=== PATIENT | male | born 1940 | race Caucasian/White ===

== ENCOUNTER 2017-01-11 12:04 | Inpatient (IN) ==
--- NOTE | 2017-01-11 13:19 | Emergency Department Note ---
Kerry Canchola Hilary, am scribing for, and in the presence of, Mic Cordon MD 13: 03. Neris Canchola James D, MD, personally performed the services described in this documentation, ascribed by Yanique Payne in my presence, and it is both accurate and complete 317 . Arrival - Arrival Chief Complaint: GI Bleed/Rectal Stated Complaint: sent from [facility] to get blood ED Nursing Triage Note: went to [facility] and had labwork drawn told to come back to er for blood transfusion. pt denies any obvious bleeding. color is pale. has had ulcers in the past. Mode of Arrival: Ambulatory Limitations: No Limitations Source: Patient, RN Notes Reviewed - History of Present Illness HPI Narrative: Pt is a 76 y/o male presenting to the ED for an evaluation. He went into [facility] to get blood work done and they determined he was Anemic. Pt confirms light headedness, SOB but denies chest pain, melena or blood in his stool. He also confirms smoking 6-7 cigarettes a day. No other complaints or problems stated in the ED. Onset (ago): minute(s) Consistency: constant Severity: mild Severity scale (1-10): 1 Allergies/Adverse Reactions: Allergies Allergy/AdvReac Type Severity Reaction Status Date / Time Cortisone AdvReac Unknown/Unable Verified 11/22/15 14:27 to obtain Home Medications: Home Medications Medication Instructions Recorded Confirmed Type Folic Acid Tab 0.4 mg PO DAILY tablet 08/27/15 01/11/17 Rx Clopidogrel [Plavix] 75 mg PO DAILY #30 tablet 09/13/15 01/11/17 Rx Atorvastatin [Lipitor] 40 mg PO DAILY tablet 11/26/15 01/11/17 Rx Furosemide Tab [Lasix Tab] 40 mg PO DAILY tablet 12/04/15 01/11/17 Rx Metoprolol Succinate Xl [Toprol Xl] 25 mg PO DAILY tablet 12/04/15 01/11/17 Rx Spironolactone [Aldactone] 25 mg PO DAILY tablet 12/04/15 01/11/17 Rx Amiodarone HCl 100 mg PO DAILY 01/11/17 01/11/17 History Niacin 100 mg PO DAILY 01/11/17 01/11/17 History Pantoprazole Tab [Protonix Tab] 40 mg PO DAILY 01/11/17 01/11/17 History Review of System - Review of System 12 point system: reviewed and no additional remarkable complaints except as stated - Review of System Constitutional: Present: other (light headedness). Absent: fever Respiratory: Present: respiratory distress (SOB) Cardiovascular: Absent: chest pain Gastrointestinal: Absent: melena, hematochezia Medical,Surgical,& Family Hx - Medical History Cardio: History of: Cardiac Dysrhythmia (A-Fib, HX of SVT, V-Fib), CHF, Hypertension, Valvular Heart Disease (past rheumatic fever), Cardiovascular Problems (CABG 2014) No history of: Congenital Heart Disease, [place], Pacemaker Psychological: History of: Psychiatric/Substance Abuse Tx (alcohol abuse) Neurology: No history of: Seizures HEENT: History of: Ear Problem (hard of hearing both), Eye Problem (can see colors and shapes), Dental Problems (no teeth) Endocrine: History of: Dyslipidemia No history of: Diabetes Mellitus (IDDM), Thyroid Disorder Rheumatology: No history of;: Psoriasis, Sjogrens, Systemic Lupus Erythematosus Respiratory: History of: COPD, Pneumonia Gastrointestinal: History of: Hemorrhoids, Polyps, GI Problems (bleeding stomach ulcers in ) Musculoskeletal: History of: Amputation (Yes; middle finger of right hand 1974) , Back/Neck Problems, Musculoskeletal Problems (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/23/15, amputated right middle finger 1974) Hematology: History of: Clotting Problems (ZARELTO FOR AFIB) No history of: Blood Transfusion Reaction Comment Only: Bleeding Problems (Stomach ulcer ()) Other: History of: MRSA No history of: Anesthesia Reactions, Anaphylaxis, Cancer, Eczema, HIV, Malignant Hyperthermia, Vancomycin-Resistant Enterococci, Skin Problems, Miscellaneous Medical Problems - Surgical History Cardiac Surgeries: Sugical HX of: Cardiac Surgery (CABG 2014) Patient Denies: Femoral-Popliteal Bypass Graft, Cardiac Catheterization, Carotid Endarterectomy, Internal Defibrillator, Vascular Access Devices Thoracic Surgeries: Patient denies;: Organ Transplant, Lobectomy Neurologic Surgeries: Patient denies: Neurologic Surgery HEENT Surgeries: Patient denies: Carotid Endarterectomy, Eye Surgery, Tonsilectomy & Adenoidectomy Abdominal Surgeries: Surgical HX of: Colonoscopy Patient denies: Abdominal Surgery, Splenectomy Reproductive Surgeries: Patient denies;: Genitourinary Surgery Orthopedic Surgeries: Surgical HX of;: Total Hip Replacement (recent admission) Patient denies;: Implanted Devices, Orthopedic Surgery, Spinal Surgery, Total Knee Replacement - Family History Family History: Reports;: Family Cancer (father lung), Family Hypertension ( BROTHER), Family Stroke (FATHER) Denies;: Family Diabetes, Family Psychiatric Problems Comment Only: Family Heart Disease (father cabg) - Social History Smoking Status: Current every day smoker Exam Physical Examination: GENERAL: Chronically ill appearing, pale male. Nicotine staining of his right 1st and 4th digit. This is a well-nourished, well-developed in no apparent distress. VITAL SIGNS: Temperature: 98.3 Pulse: 89L Respiratory: 18 Blood Pressure: 124 /61 O2 Sat: 99 HEENT: Head is normocephalic and atraumatic. Pupils are equally round and reactive to light. Extraocular movement are intact. Oropharynx is benign with moist mucous membranes. NECK: Neck is soft and supple without tenderness. There are no masses. There is no lymphadenopathy. LUNGS: Lungs are clear to auscultation bilaterally. Chest rises symmetrically. There is no chest wall tenderness. CV: Heart is regular rate and rhythm without murmurs, rubs, or gallops. ABDOMEN: Abdomen is soft, non-tender to palpation. There are no abnormal masses palpated. There is no organomegaly. Bowel sounds are present and active. SKIN: Skin is warm and dry. No rash. EXTREMITIES: Patient has full range of motion without tenderness. There is no pedal edema. NEUROLOGIC: Awake, alert, and oriented x4. Cranial nerves II through XII are grossly intact. There are no motorsensory deficits. PSYCHIATRIC: Normal affect. Normal mood. Vital Signs: Vital Signs Temperature 98.3 F 01/11/17 12:06 Pulse Rate 89 01/11/17 12:06 Respiratory Rate 18 01/11/17 12:06 Blood Pressure 124/61 01/11/17 12:06 O2 Sat by Pulse Oximetry 99 01/11/17 12:06 Course - Consultations Consultation #1: Discussed with Hospitalist patient will be admitted to their service. Time: 13:04 Disposition Clinical Impression: Anemia, Coronary artery disease, Nicotine addiction Case discussed with: patient Disposition: Still a Patient Condition: Stable
[2017-01-11 14:25] LABS: Basophils % 0.1 % (0.0-0.8); Eosinophils # 0.2 10*3/uL (0.0-0.87); Eosinophils % 2.3 % (0.00-10.9); Hematocrit 21.1 VOL% (42.0-52.0); Immature Granulocytes % 0.4 %; Immature Granulocytes Absolute 0.04 #; Lymphocytes # 1.6 10*3/uL (1.4-4.0); Lymphocytes % 17.4 % (21.2-54.2); Mean Corpuscular HGB Conc 29.4 GM/DL (32-36); Mean Corpuscular Hemoglobin 18 PG (27-34); Mean Corpuscular Volume 61.3 FL (87-102); Mean Platelet Volume 11.3 FL (9.6-12.0); Monocytes # 0.6 10*3/uL (0.11-0.8); Monocytes % 7.1 % (1.7-12.7); Neutrophils # 6.6 10*3/uL (1.4-7.4); Neutrophils % 72.7 % (38.7-73.9); Platelet Count 208 T/CUMM (130-400); Red Blood Count 3.44 MC/CUMM (3.8-5.5); Red Cell Distribution Width 19.8 % (9.3-17.3); White Blood Count 9.1 T/CUMM (4-12)
[2017-01-11 14:28] LABS: Hemoglobin 6.2 GM/DL (14.0-18.0)
[2017-01-11 14:48] LABS: Albumin 3.6 G/DL (3.4-5.0); Bilirubin,Total 0.4 MG/DL (0.2-1.0); Calcium 8.7 MG/DL (8.5-10.1); Potassium 3.7 MMOL/L (3.5-5.1); Total Protein 6.8 G/DL (6.4-8.3)
[2017-01-11 14:51] LABS: % Iron Saturation 2.4 % (18-50); Ferritin 4.8 ng/ml (26-388)
[2017-01-11] MEDS ORDERED: ONDANSETRON 4 MG/2 ML VIAL IV PRN (15:54)
[2017-01-11] MEDS ORDERED: NICOTINE 21 MG/24 HR PATCH TRANSDERM PRN (15:54)
[2017-01-11] MEDS ORDERED: SODIUM CHLORIDE 0.9% 250 ML IV PRN ×2 (15:55→17:25)
--- NOTE | 2017-01-11 16:02 | Hospitalist History & Physical ---
Assessment and Plan (1) Anemia Status: Acute Assessment and plan: Patient will be admitted to the MedSurg unit. Patient's H&H is 6.2 and 21.1. Patient will be transfused. Check H&H post transfusion and in am. Consult GI. Current Visit: Yes (2) Coronary artery disease Status: Acute Current Visit: Yes (3) CHF (congestive heart failure) Status: Acute Assessment and plan: Obtain BNP. Use cautious in hydrating. Current Visit: No (4) Atrial fibrillation Status: Chronic Assessment and plan: Will obtain ekg. Restart home medications. Monitor patient. Current Visit: No Qualifiers: Atrial fibrillation type: paroxysmal Qualified Code(s): I48.0 - Paroxysmal atrial fibrillation (5) Nicotine addiction Status: Acute Assessment and plan: Nicotine patch. Smoking cessation education. Current Visit: Yes History of Present Illness Chief complaint: gi bleed History of present illness: Mr. Mcleod is a 76 year old white male with a history of A. fib, CHF, hypertension, [place], CABG, COPD, pneumonia, bleeding ulcers (in the 70s) presented to the ED for evaluation. Patient states that he was at the [facility] a day to get blood work done when he was notified that he was anemic. Patient states that he is short of breath at times and has felt weak and fatigued lately but denies chest pain, hematuria, epistaxis, melena. Patient is a smoker and states that he smokes 6-8 cigarettes a day. Patient denies any other problems patient in the ED at this time. Patient will be admitted to the hospitalist service for further evaluation and treatment. Home Medications Medication Instructions Recorded Confirmed Type Folic Acid Tab 0.4 mg PO DAILY tablet 08/27/15 01/11/17 Rx Clopidogrel [Plavix] 75 mg PO DAILY #30 tablet 09/13/15 01/11/17 Rx Atorvastatin [Lipitor] 40 mg PO DAILY tablet 11/26/15 01/11/17 Rx Furosemide Tab [Lasix Tab] 40 mg PO DAILY tablet 12/04/15 01/11/17 Rx Metoprolol Succinate Xl [Toprol Xl] 25 mg PO DAILY tablet 12/04/15 01/11/17 Rx Spironolactone [Aldactone] 25 mg PO DAILY tablet 12/04/15 01/11/17 Rx Amiodarone HCl 100 mg PO DAILY 01/11/17 01/11/17 History Niacin 100 mg PO DAILY 01/11/17 01/11/17 History Pantoprazole Tab [Protonix Tab] 40 mg PO DAILY 01/11/17 01/11/17 History Allergies Allergy/AdvReac Type Severity Reaction Status Date / Time Cortisone AdvReac Unknown/Unable Verified 11/22/15 14:27 to obtain Medical,Surgical,& Family Hx - Medical History Cardio: History of: Cardiac Dysrhythmia (A-Fib, HX of SVT, V-Fib), CHF, Hypertension, Valvular Heart Disease (past rheumatic fever), Cardiovascular Problems (CABG 2014) No history of: Congenital Heart Disease, [place], Pacemaker Psychological: History of: Psychiatric/Substance Abuse Tx (alcohol abuse) Neurology: No history of: Seizures HEENT: History of: Ear Problem (hard of hearing both), Eye Problem (can see colors and shapes), Dental Problems (no teeth) Endocrine: History of: Dyslipidemia No history of: Diabetes Mellitus (IDDM), Thyroid Disorder Rheumatology: No history of;: Psoriasis, Sjogrens, Systemic Lupus Erythematosus Respiratory: History of: COPD, Pneumonia Gastrointestinal: History of: Hemorrhoids, Polyps, GI Problems (bleeding stomach ulcers in ) Musculoskeletal: History of: Amputation (Yes; middle finger of right hand 1974) , Back/Neck Problems, Musculoskeletal Problems (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/23/15, amputated right middle finger 1974) Hematology: History of: Clotting Problems (ZARELTO FOR AFIB) No history of: Blood Transfusion Reaction Comment Only: Bleeding Problems (Stomach ulcer ()) Other: History of: MRSA No history of: Anesthesia Reactions, Anaphylaxis, Cancer, Eczema, HIV, Malignant Hyperthermia, Vancomycin-Resistant Enterococci, Skin Problems, Miscellaneous Medical Problems - Surgical History Cardiac Surgeries: Sugical HX of: Cardiac Surgery (CABG 2014) Patient Denies: Femoral-Popliteal Bypass Graft, Cardiac Catheterization, Carotid Endarterectomy, Internal Defibrillator, Vascular Access Devices Thoracic Surgeries: Patient denies;: Organ Transplant, Lobectomy Neurologic Surgeries: Patient denies: Neurologic Surgery HEENT Surgeries: Patient denies: Carotid Endarterectomy, Eye Surgery, Tonsilectomy & Adenoidectomy Abdominal Surgeries: Surgical HX of: Colonoscopy Patient denies: Abdominal Surgery, Splenectomy Reproductive Surgeries: Patient denies;: Genitourinary Surgery Orthopedic Surgeries: Surgical HX of;: Total Hip Replacement (recent admission) Patient denies;: Implanted Devices, Orthopedic Surgery, Spinal Surgery, Total Knee Replacement - Family History Family History: Reports;: Family Cancer (father lung), Family Hypertension ( BROTHER), Family Stroke (FATHER) Denies;: Family Diabetes, Family Psychiatric Problems Comment Only: Family Heart Disease (father cabg) - Social History Smoking Status: Current every day smoker Frequency of Alcohol Use: None Type of Drug Use: None Marital Status: Single Lives With:: Alone Functional capacity: uses cane/walker - Constitutional Constitutional: Present: fatigue, weakness. Absent: chills, fever(s) - EENT Eyes: Absent: blurry vision Ears: Present: decreased hearing. Absent: ear discharge Nose, mouth and throat: Absent: epistaxis - Cardiovascular Cardiovascular: Present: dyspnea on exertion. Absent: edema - Respiratory Respiratory: Present: cough, dyspnea - Gastrointestinal Gastrointestinal: Absent: abdominal pain, nausea, vomiting - Genitourinary Genitourinary: Absent: difficulty urinating, urinary frequency - Neurological Neurological: Absent: confusion, dizziness - Psychiatric Psychiatric: Absent: anxiety, confusion - Hematologic/Lymphatic Hematologic/Lymphatic: Present: easy bruising Exam - Constitutional Vitals: Period Temp Pulse Resp BP Sys/Lubin Pulse Ox Last 24 Hr 97.4 F-98.4 F 61-89 18-20 113-143/50-91 96-99 General appearance: no acute distress, under weight - Head Head exam: Present: normal inspection, normocephalic - Eye Eye exam: Present: EOMI Pupils: Present: LILI - Neck Neck exam: Present: normal inspection. Absent: thyromegaly - Respiratory Respiratory exam: Present: clear to auscultation bilaterally. Absent: wheezes - Cardiovascular Cardiovascular exam: Present: regular rate and rhythm - GI/Abdominal GI/Abdominal exam: Present: normal bowel sounds, soft. Absent: tenderness - Extremities Exam Extremities exam: Present: normal capillary refill, full ROM. Absent: edema - Neurological Exam Neurological exam: Present: alert, oriented X3 - Psychiatric Psychiatric exam: Present: normal affect, normal mood, depressed - Skin Skin exam: Present: normal color, warm, dry Results - Labs CBC & BMP: 01/11/17 13:37 01/11/17 13:37 Lab Results: I have reviewed the past 24 hour labs Quality Measures - Stroke Symptom Onset Unknown: No
[2017-01-11] MEDS: SODIUM CHLORIDE 0.9% 1,000 ML IV SCH (17:08)
[2017-01-12 01:10] LABS: Hematocrit 25.6 VOL% (42.0-52.0)
[2017-01-12 01:16] LABS: Hemoglobin 7.7 GM/DL (14.0-18.0)
[2017-01-12 05:29] LABS: Basophils % 0.3 % (0.0-0.8); Eosinophils # 0.4 10*3/uL (0.0-0.87); Eosinophils % 4.7 % (0.00-10.9); Hematocrit 26.2 VOL% (42.0-52.0); Hemoglobin 7.9 GM/DL (14.0-18.0); Immature Granulocytes % 0.3 %; Immature Granulocytes Absolute 0.03 #; Lymphocytes # 1.4 10*3/uL (1.4-4.0); Lymphocytes % 15.4 % (21.2-54.2); Mean Corpuscular HGB Conc 30.2 GM/DL (32-36); Mean Corpuscular Hemoglobin 20 PG (27-34); Mean Corpuscular Volume 65.8 FL (87-102); Mean Platelet Volume 9.7 FL (9.6-12.0); Monocytes # 0.8 10*3/uL (0.11-0.8); Monocytes % 8.7 % (1.7-12.7); Neutrophils # 6.5 10*3/uL (1.4-7.4); Neutrophils % 70.6 % (38.7-73.9); Platelet Count 213 T/CUMM (130-400); Red Blood Count 3.98 MC/CUMM (3.8-5.5); Red Cell Distribution Width 23.2 % (9.3-17.3); White Blood Count 9.2 T/CUMM (4-12)
[2017-01-12 06:09] LABS: Calcium 8.1 MG/DL (8.5-10.1); Magnesium 2.2 MG/DL (1.8-2.4); Osmolality,Calculated 274.5 MOS/KG (273-304); Potassium 3.7 MMOL/L (3.5-5.1); Risk Ratio 1.71; Thyroid Stimulating Hormone 2.99 uIU/ml (0.358-3.74); VLDL CHOLESTEROL 12.4 MG/DL
--- NOTE | 2017-01-12 06:36 | Gastrointestinal Consult Note ---
Assessment and Plan (1) Erosive gastritis Status: Acute Assessment and plan: Erosive gastritis was seen along with Billroth I anatomy in the stomach previously back in 08/26/15 when the patient had his last endoscopy. Biopsies were negative for Helicobacter pylori and the erosions were thought secondary to a combination of NSAIDs and alcohol. Clearly the patient has not discontinued his alcohol and remains on Plavix which has decreased his hematocrit from his recent 30% last month down to his present 21% at this time. He is getting his units of blood but is refusing further workup from a GI standpoint. As he appears to be in his right mind we will comply with his wishes and hold off on further testing. My best suggestion at this time would be to taper him off of alcohol entirely, stop Plavix and may be increase his Protonix to twice daily. Continue to observe him during his hospitalization but again he is refusing further workup including repeated upper endoscopy. Differential diagnosis at this time includes: Rosalinda-Bell tear, esophagitis, erosive gastritis, gastric ulcers, duodenitis, AVMs but it would be unusual for the patient to have developed gastric cancer in the 1+ year interim from his last scopes. On a style note, his erosive gastritis is worsened by his alcohol intake, I typically do not give these patients beer on admission but encouraged him to discontinue this addiction. I do note he went to the delirium [facility] a year ago on we discontinued his alcohol on the last admission. Current Visit: Yes (2) Personal history of gastric ulcer Status: Acute Assessment and plan: The patient did demonstrate a Billroth I anatomy on his last upper endoscopy. It is thought this was probably associated with his previous ulcer surgery back in the 1970s. Again Protonix twice daily is suggested at this point. Current Visit: Yes (3) Symptomatic anemia Status: Acute Assessment and plan: Agreed that this patient needs blood transfusions. Suggest 2-3 units initially , although I believe he is being transfused a total of 4. Watch for evidence of CHF. 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 August 2018. No bleeding source was seen in the colon. Current Visit: Yes History of Present Illness Chief complaint: Alcoholic with previous erosive gastritis and anemia 21.1%/6.2 g/dL History of present illness: Mr. Mcleod is a 76 year old male who is a somewhat cantankerous alcoholic who has a history of atrial fibrillation, congestive heart failure, alcoholism, hypertension, myocardial infarction, CABG, COPD, and bleeding ulcers back in the who underwent a similar workup for his anemia. He has a history of a hematocrit that was actually 30.5% when last seen in the hospital on 12/10/15. He is clearly minimizing his alcohol intake and describes only 2-3 beers per day without any whiskey. He states of the beers are 12 ounce. He seems annoyed at questions on his drinking--he states that he has been feeling weak for the last 4-5 months but has not noticed any melena, hematemesis, bright red blood per rectum or other evidence of bleeding. He has minimal occasional epigastric pain and reflux symptoms. His medication list includes Protonix, 40 mg per day and he does take Plavix on a regular basis but I do not see any aspirin listed. He is refusing rectal examination and refusing any further workup for his GI bleeding. When he was in during his GI bleed on the last event patient's hematocrit dropped from 33% to 22%. He underwent upper endoscopy which demonstrated a Billroth I anatomy post surgical resection of the ulcer back in the along with a few gastric erosions. Pathology from the duodenum failed to show any celiac sprue but there was chronic gastritis discovered on pathology in the stomach which was Helicobacter pylori negative. Colonoscopy demonstrated 2 large polyps in the sigmoid and the cecum that were resected endoscopically--the sigmoid polyp proved to be a tubulovillous adenoma which will require repeat colonoscopy in 3 years but the cecal polyp ended up being a tubular adenoma. Again this would normally complete the workup if the patient was not continuing to bleed, it is unclear what the cause for his present bleed is but I suspect there may be erosive gastritis or gastric ulcers which are producing long-term bleed in the presence of Plavix. Home Medications Medication Instructions Recorded Confirmed Type Folic Acid Tab 0.4 mg PO DAILY tablet 08/27/15 01/11/17 Rx Clopidogrel [Plavix] 75 mg PO DAILY #30 tablet 09/13/15 01/11/17 Rx Atorvastatin [Lipitor] 40 mg PO DAILY tablet 11/26/15 01/11/17 Rx Furosemide Tab [Lasix Tab] 40 mg PO DAILY tablet 12/04/15 01/11/17 Rx Metoprolol Succinate Xl [Toprol Xl] 25 mg PO DAILY tablet 12/04/15 01/11/17 Rx Spironolactone [Aldactone] 25 mg PO DAILY tablet 12/04/15 01/11/17 Rx Amiodarone HCl 100 mg PO DAILY 01/11/17 01/11/17 History Niacin 100 mg PO DAILY 01/11/17 01/11/17 History Pantoprazole Tab [Protonix Tab] 40 mg PO DAILY 01/11/17 01/11/17 History Allergies Allergy/AdvReac Type Severity Reaction Status Date / Time Cortisone AdvReac Unknown/Unable Verified 11/22/15 14:27 to obtain Medical,Surgical,& Family Hx - Medical History Cardio: History of: Cardiac Dysrhythmia (A-Fib, HX of SVT, V-Fib), CHF, Hypertension, Valvular Heart Disease (past rheumatic fever), Cardiovascular Problems (CABG 2014) No history of: Congenital Heart Disease, [place], Pacemaker Psychological: History of: Psychiatric/Substance Abuse Tx (alcohol abuse) Neurology: No history of: Seizures HEENT: History of: Ear Problem (hard of hearing both), Eye Problem (can see colors and shapes), Dental Problems (no teeth) Endocrine: History of: Dyslipidemia No history of: Diabetes Mellitus (IDDM), Thyroid Disorder Rheumatology: No history of;: Psoriasis, Sjogrens, Systemic Lupus Erythematosus Respiratory: History of: COPD, Pneumonia Gastrointestinal: History of: Hemorrhoids, Polyps, GI Problems (bleeding stomach ulcers in ) Musculoskeletal: History of: Amputation (Yes; middle finger of right hand 1974) , Back/Neck Problems, Musculoskeletal Problems (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/23/15, amputated right middle finger 1974) Hematology: History of: Clotting Problems (ZARELTO FOR AFIB) No history of: Blood Transfusion Reaction Comment Only: Bleeding Problems (Stomach ulcer ()) Other: History of: MRSA No history of: Anesthesia Reactions, Anaphylaxis, Cancer, Eczema, HIV, Malignant Hyperthermia, Vancomycin-Resistant Enterococci, Skin Problems, Miscellaneous Medical Problems - Surgical History Cardiac Surgeries: Sugical HX of: Cardiac Surgery (CABG 2014) Patient Denies: Femoral-Popliteal Bypass Graft, Cardiac Catheterization, Carotid Endarterectomy, Internal Defibrillator, Vascular Access Devices Thoracic Surgeries: Patient denies;: Organ Transplant, Lobectomy Neurologic Surgeries: Patient denies: Neurologic Surgery HEENT Surgeries: Patient denies: Carotid Endarterectomy, Eye Surgery, Tonsilectomy & Adenoidectomy Abdominal Surgeries: Surgical HX of: Colonoscopy Patient denies: Abdominal Surgery, Splenectomy Reproductive Surgeries: Patient denies;: Genitourinary Surgery Orthopedic Surgeries: Surgical HX of;: Total Hip Replacement (recent admission) Patient denies;: Implanted Devices, Orthopedic Surgery, Spinal Surgery, Total Knee Replacement - Family History Family History: Reports;: Family Cancer (father lung), Family Hypertension ( BROTHER), Family Stroke (FATHER) Denies;: Family Diabetes, Family Psychiatric Problems Comment Only: Family Heart Disease (father cabg) - Social History Smoking Status: Current every day smoker Frequency of Alcohol Use: None Type of Drug Use: None Review of systems: Constitutional: Denies fever, chills, nausea, and vomiting Eyes: Denies dry eyes, and scleral icterus HENT: Occasional headaches Cardiovascular: Intermittent acute chest pain but no claudication Respiratory: Denies shortness of breath, wheezing, and difficulty breathing, denies cough Gastrointestinal: As noted in the HPI Genitourinary: Denies dysuria and hematuria Neurologic: Denies vision loss, and loss of sensation Musculoskeletal: Denies joint swelling, but does have some joint stiffness, and muscular weakness Psychiatric: Denies depression and magaly symptoms. Patient does have alcoholism. Heme-Lymph: Denies easy bruising, lymph node enlargement or tenderness, night sweats, excessive bleeding Allergies-immunologic: Denies pruritus and rhinorrhea Exam - Constitutional Vitals: Period Temp Pulse Resp BP Sys/Lubin Pulse Ox Last 24 Hr 97.4 F-98.7 F 54-89 16-20 98-143/42-91 95-100 General appearance: no acute distress - Head Head exam: Present: normocephalic - Eye Eye exam: Present: EOMI - Respiratory Respiratory exam: Present: clear to auscultation bilaterally. Absent: stridor - Cardiovascular Cardiovascular exam: Present: regular rate and rhythm - GI/Abdominal GI/Abdominal exam: Present: normal bowel sounds, soft, other (The patient is refusing rectal examination to look for melena and/or blood in the stool.). Absent: distended, guarding, tenderness, rebound - Extremities Exam Extremities exam: Absent: edema - Neurological Exam Neurological exam: Present: alert, oriented X3, CN II-XII intact. Absent: motor sensory deficit - Psychiatric Psychiatric exam: Present: normal affect, normal mood - Skin Skin exam: Present: warm Results - Labs CBC & BMP: 01/12/17 04:49 01/12/17 04:49 Quality Measures - Stroke Symptom Onset Unknown: No
--- NOTE | 2017-01-12 06:40 | EKG Report ---
Stationary ECG Study [facility] Test Date: 01/11/2017 4:30:37 PM Pat Name: FELIPE HOFFMAN Department: Room: 533 Gender: M Bobbin Marker: : 1940 Requested by: Diana Rodriugez Order Number: [id number] Reading MD: SERINA EASTMAN Intervals [place] Rate: 59 P: 999 MI: 0 QRS: 63 QRSD: 101 T: 75 QT: 477 QTc: 476 Interpretive Statements NORMAL SINUS RHYTHM WITH ATRIAL PREMATURE COMPLEX NON-SPECIFIC IVCD Electronically Signed On 01-15-17 14:42:25 CDT by SERINA EASTMAN [email or web address]
[2017-01-12] MEDS: SODIUM CHLORIDE 0.9% 1,000 ML IV SCH (08:51)
[2017-01-12] MEDS ORDERED: chlordiazePOXIDE 10 MG CAPSULE PO PRN (08:56)
[2017-01-12] MEDS ORDERED: AMIODARONE 200 MG TABLET PO SCH (09:00)
[2017-01-12] MEDS ORDERED: METOPROLOL SUCCINATE XL 25 MG TABLET PO SCH (09:00)
[2017-01-12] MEDS ORDERED: FOLIC ACID 0.4 MG TABLET PO SCH (09:00)
[2017-01-12] MEDS ORDERED: PANTOPRAZOLE 40 MG VIAL IV SCH (09:00)
[2017-01-12] MEDS ORDERED: ATORVASTATIN 40 MG TABLET PO SCH (09:00)
[2017-01-12] MEDS ORDERED: THIAMINE INJ 100 MG, FOLIC ACID INJ 1 MG, MULTIVITAMIN INJ 10 ML in SODIUM CHLORIDE 0.9... IV SCH (10:00)
[2017-01-12 13:18] VITALS: BP 119/58
[2017-01-12 14:32] LABS: Hemoglobin 10.9 GM/DL (14.0-18.0)
--- NOTE | 2017-01-12 14:38 | Discharge Summary ---
Hospital Course - Hospital Course Hospital Course: Mr. Mcleod is a 76 year old white male with a history of A. fib, CHF, hypertension, [place], CABG, COPD, pneumonia, bleeding ulcers (in the 70s), chronic alcohol and nicotine abuser who was sent from [facility] after his blood work showed an anemia of 6.2/21.1 respectively. He was admitted typed, screened and transfused with a total of 4units of packed cells. GI saw in consultation and he declined and endoscopy. He had an erosive gastritis was seen along with [place] I anatomy in the stomach previously back in 08/26/15 when the patient had his last endoscopy. Biopsies were negative for Helicobacter pylori and the erosions were thought secondary to a combination of NSAIDs and alcohol.He was so adamant that he was not going to stop drinking and smoking. He threatened to leave [place] after his 4th transfusion and he left.He received some banana bag prior to leaving. He also declined a Nicotine patch. - Time spent with patient Time with patient DS: Less than 30 minutes (Time spent less than 30mins) Diagnosis - Discharge Diagnosis (1) History of ETOH abuse Status: Chronic (2) Tobacco abuse Status: Chronic (3) Symptomatic anemia Status: Acute (4) Erosive gastritis Status: Acute (5) Personal history of colonic polyps Status: Acute Discharge Plan - Discharge Data Disposition: Left Against Medical Advice - Discharge Medications No Action Folic Acid Tab 0.4 mg PO DAILY tablet Clopidogrel [Plavix] 75 mg PO DAILY #30 tablet Atorvastatin [Lipitor] 40 mg PO DAILY tablet Furosemide Tab [Lasix Tab] 40 mg PO DAILY tablet Metoprolol Succinate Xl [Toprol Xl] 25 mg PO DAILY tablet Spironolactone [Aldactone] 25 mg PO DAILY tablet Amiodarone HCl 100 mg PO DAILY Niacin 100 mg PO DAILY Pantoprazole Tab [Protonix Tab] 40 mg PO DAILY - Follow Up or Referral - Forms/Instructions Exam - Constitutional Vitals: Period Temp Pulse Resp BP Sys/Lubin Pulse Ox Last 24 Hr 97.4 F-98.7 F 54-71 16-20 98-143/42-71 95-100 Discharge Results Procedures and tests throughout hospitalization: Pending Orders 01/12/17 13:48 H&H [Hemoglobin and Hematocrit] Stat Labs on day of discharge: Labs from last 24 hours 01/12/17 01/12/17 01/12/17 04:49 04:49 04:49 WBC 9.2 RBC 3.98 Hgb 7.9 L Hct 26.2 L MCV 65.8 L MCH 20 L MCHC 30.2 L RDW 23.2 H Plt Count 213 MPV 9.7 Neut % (Auto) 70.6 Lymph % (Auto) 15.4 L [place] % (Auto) 8.7 Eos % (Auto) 4.7 Baso % (Auto) 0.3 Neut # (Auto) 6.5 Lymph # (Auto) 1.4 [place] # (Auto) 0.8 Eos # (Auto) 0.4 Baso # (Auto) 0.0 Immature Gran % 0.3 Nucleated RBC % 0.0 Immature Gran # 0.03 Nucleated RBCs # 0.00 Absolute Retic Percent Retic Retic Hgb Equivalent Sodium 139 Potassium 3.7 Chloride 105 Carbon Dioxide 25 Anion Gap 12.7 BUN 10 Creatinine 0.80 GFR Calculation 92 BUN/Creatinine Ratio 12.00 Glucose 84 Calculated Osmolality 274.5 Calcium 8.1 L Magnesium 2.2 Iron TIBC % Saturation Ferritin Total Bilirubin AST ALT Alkaline Phosphatase B-Natriuretic Peptide Total Protein Albumin Globulin Albumin/Globulin Ratio Triglycerides 62 Cholesterol 99 LDL Cholesterol 37.0 VLDL Cholesterol 12.4 HDL Cholesterol 58 Heart Disease Risk Ratio 1.71 Folate TSH 3rd Generation 2.990 Blood Type Cancelled Antibody Screen Cancelled Crossmatch See Detail Blood Bank Comment Cancelled 01/12/17 01/11/17 01/11/17 00:29 Unknown Unknown WBC RBC Hgb 7.7 L D Hct 25.6 L MCV MCH MCHC RDW Plt Count MPV Neut % (Auto) Lymph % (Auto) [place] % (Auto) Eos % (Auto) Baso % (Auto) Neut # (Auto) Lymph # (Auto) [place] # (Auto) Eos # (Auto) Baso # (Auto) Immature Gran % Nucleated RBC % Immature Gran # Nucleated RBCs # Absolute Retic Percent Retic Retic Hgb Equivalent Sodium Potassium Chloride Carbon Dioxide Anion Gap BUN Creatinine GFR Calculation BUN/Creatinine Ratio Glucose Calculated Osmolality Calcium Magnesium Iron TIBC % Saturation Ferritin Total Bilirubin AST ALT Alkaline Phosphatase B-Natriuretic Peptide 268 H Total Protein Albumin Globulin Albumin/Globulin Ratio Triglycerides Cholesterol LDL Cholesterol VLDL Cholesterol HDL Cholesterol Heart Disease Risk Ratio Folate TSH 3rd Generation Blood Type Cancelled Antibody Screen Cancelled Crossmatch See Detail Blood Bank Comment Cancelled 0601/11/17 01/11/17 13:37 13:37 13:37 WBC RBC Hgb Hct MCV MCH MCHC RDW Plt Count MPV Neut % (Auto) Lymph % (Auto) [place] % (Auto) Eos % (Auto) Baso % (Auto) Neut # (Auto) Lymph # (Auto) [place] # (Auto) Eos # (Auto) Baso # (Auto) Immature Gran % Nucleated RBC % Immature Gran # Nucleated RBCs # Absolute Retic Percent Retic Retic Hgb Equivalent Sodium 136 Potassium 3.7 Chloride 100 Carbon Dioxide 25 Anion Gap 14.7 BUN 12 Creatinine 1.00 GFR Calculation 78 BUN/Creatinine Ratio 12.00 Glucose 98 Calculated Osmolality 271.0 L Calcium 8.7 Magnesium Iron TIBC % Saturation Ferritin Total Bilirubin 0.40 AST 14 ALT 16 Alkaline Phosphatase 84 B-Natriuretic Peptide Total Protein 6.8 Albumin 3.6 Globulin 3.2 Albumin/Globulin Ratio 1.1 Triglycerides Cholesterol LDL Cholesterol VLDL Cholesterol HDL Cholesterol Heart Disease Risk Ratio Folate > 24.0 H TSH 3rd Generation Blood Type A POSITIVE Antibody Screen Negative Crossmatch Blood Bank Comment 01/11/17 01/11/17 13:37 13:37 WBC RBC Hgb Hct MCV MCH MCHC RDW Plt Count MPV Neut % (Auto) Lymph % (Auto) [place] % (Auto) Eos % (Auto) Baso % (Auto) Neut # (Auto) Lymph # (Auto) [place] # (Auto) Eos # (Auto) Baso # (Auto) Immature Gran % Nucleated RBC % Immature Gran # Nucleated RBCs # Absolute Retic 0.0 Percent Retic 1.2 Retic Hgb Equivalent 15.9 L Sodium Potassium Chloride Carbon Dioxide Anion Gap BUN Creatinine GFR Calculation BUN/Creatinine Ratio Glucose Calculated Osmolality Calcium Magnesium Iron 12 L TIBC 499 H % Saturation 2.4 L Ferritin 4.8 L Total Bilirubin AST ALT Alkaline Phosphatase B-Natriuretic Peptide Total Protein Albumin Globulin Albumin/Globulin Ratio Triglycerides Cholesterol LDL Cholesterol VLDL Cholesterol HDL Cholesterol Heart Disease Risk Ratio Folate TSH 3rd Generation Blood Type Antibody Screen Crossmatch Blood Bank Comment DS: Provider Date of admission: 01/11/17 13:17 Primary care physician: . No PCP Attending physician on admission: Chrissy [place] MD Consults: 01/11/17 15:45 Consult to Pastoral Services [CONS] Routine Comment: Pastoral Screen: Declines Visit Pastoral Screen Source of Request: Patient 01/11/17 16:15 Consult to Physician [CONS] Routine Comment: Consulting Provider: Garrison Poole Person Notified: Nidia Date Notified: 01/11/17 Time Notified: 16:30 01/11/17 21:45 Consult to Anesthesiology [CONS] Routine Consulting Provider: Reason for Anesthesiology: Pre-op Clearance Discharging clinician: Pamela Marlow MD
== END 2017-01-12 13:50 | disposition left against medical advice (07) | DRG 812 ==
LOC: N.ED 12:04 → SUATTDRO 13:17 → N.EDINP 13:17 → N.5E 15:19
PROVIDERS: ADMIT Internal Medicine; ATTEND Internal Medicine

== ENCOUNTER 2017-03-18 18:56 | Inpatient (IN) ==
--- NOTE | 2017-03-18 19:48 | XRay Report ---
XR chest 1V portable Indication: Chest pain. Chest one view: Comparison 11/25/2015. Cardiomegaly, postoperative changes median sternotomy are both stable. Although there is diffuse interstitial prominence of the lungs with periosteal thickening throughout, this represents a significant improvement in interstitial edema present on the prior exam. No infiltrates. Impression: Stable cardiomegaly. Airways disease such as chronic bronchitis or viral syndrome, not as severe as the prior study. PROCEDURE INTERPRETED AT [facility] DEPARTMENT OF RADIOLOGY Final Report Signed by: Yifan Dunham M.D.
[2017-03-18 19:52] LABS: Basophils % 0.2 % (0.0-0.8); Eosinophils # 0.2 10*3/uL (0.0-0.87); Eosinophils % 1.4 % (0.00-10.9); Hematocrit 38.7 VOL% (42.0-52.0); Hemoglobin 13.1 GM/DL (14.0-18.0); Immature Granulocytes % 0.2 %; Immature Granulocytes Absolute 0.03 #; Lymphocytes # 1.5 10*3/uL (1.4-4.0); Mean Corpuscular HGB Conc 33.9 GM/DL (32-36); Mean Corpuscular Hemoglobin 28 PG (27-34); Mean Corpuscular Volume 82.5 FL (87-102); Mean Platelet Volume 10.2 FL (9.6-12.0); Monocytes # 1.1 10*3/uL (0.11-0.8); Monocytes % 7.3 % (1.7-12.7); Neutrophils # 11.7 10*3/uL (1.4-7.4); Neutrophils % 80.9 % (38.7-73.9); Platelet Count 197 T/CUMM (130-400); Red Blood Count 4.69 MC/CUMM (3.8-5.5); White Blood Count 14.4 T/CUMM (4-12)
[2017-03-18 20:09] LABS: Magnesium 2.3 MG/DL (1.8-2.4)
[2017-03-18 20:10] LABS: PT Patient Result 10.6 SECS; Partial Thromboplastin Time 30.2 SECS (0-40)
[2017-03-18 20:15] LABS: Albumin 3.2 G/DL (3.4-5.0); Bilirubin,Total 0.8 MG/DL (0.2-1.0); Calcium 8.5 MG/DL (8.5-10.1); Osmolality,Calculated 263.4 MOS/KG (273-304); Potassium 3.4 MMOL/L (3.5-5.1); Total Protein 6.8 G/DL (6.4-8.3)
--- NOTE | 2017-03-18 20:42 | Emergency Department Note ---
IAngely Emily, am scribing for, and in the presence of, Declan Zhong MD 20: 10. Trevin Canchola Charles R, MD, personally performed the services described in this documentation, ascribed by Laura Au in my presence, and it is both accurate and complete . Arrival - Arrival Chief Complaint: Chest Pain Stated Complaint: possible heart attack ED Nursing Triage Note: Pt arrives to triage with complaints of chest pain and feeling like his heart has been racing. States that it started earlier today. States that he has had some shortness of breath today as well. Denies any nausea and vomting. PT has a histroy of Afib and has had bypass in the past. States that pain radiates across his chest. Mode of Arrival: Wheelchair Limitations: No Limitations Source: Patient Time Seen by Provider: 03/18/17 19:19 - History of Present Illness HPI Narrative: Pt is a 76 y/o male who came to ED with c/o chest pain that radiates across chest with SOB, intermittently, that started at 2pm. Pt has sporadic BARRERA, in which started this afternoon when taking garbage. He notes that his heart started racing and pain then started that made him buckle over in pain, but denies syncope or N/V. Pt had blood thinners stopped about 1-2 months ago due to having problems bleeding out during GI issues and having 4 units for blood transfusion. Dr. Contreras advised him not to take even baby aspirin. Pt is a smoker with little exercise, but denies being bedbound. PMHx hard of hearing; COPD, CHF, CABG 2014; HTN, HLD, Afib. Onset (ago): hour(s) Consistency: intermittent Severity: mild, moderate Severity scale (1-10): 4 Quality: aching Allergies/Adverse Reactions: Allergies Allergy/AdvReac Type Severity Reaction Status Date / Time Cortisone AdvReac Unknown/Unable Verified 11/22/15 14:27 to obtain Home Medications: Home Medications Medication Instructions Recorded Confirmed Type Folic Acid Tab 0.4 mg PO DAILY tablet 08/27/15 03/18/17 Rx Atorvastatin [Lipitor] 40 mg PO DAILY tablet 11/26/15 03/18/17 Rx Furosemide Tab [Lasix Tab] 40 mg PO DAILY tablet 12/04/15 03/18/17 Rx Metoprolol Succinate Xl [Toprol Xl] 25 mg PO DAILY tablet 12/04/15 03/18/17 Rx Spironolactone [Aldactone] 25 mg PO DAILY tablet 12/04/15 03/18/17 Rx Amiodarone HCl 100 mg PO DAILY 01/11/17 03/18/17 History Niacin 100 mg PO DAILY 01/11/17 03/18/17 History Pantoprazole Tab [Protonix Tab] 40 mg PO DAILY 01/11/17 03/18/17 History Review of System - Review of System 12 point system: reviewed and no additional remarkable complaints except as stated - Review of System Constitutional: Absent: fever, weakness Respiratory: Present: respiratory distress. Absent: cough Cardiovascular: Present: chest pain (across chest), dyspnea on exertion. Absent : orthopnea, syncope Gastrointestinal: Absent: abdominal pain, nausea, vomiting Musculoskeletal: Absent: arm pain, neck pain Skin: Absent: rash Neurological: Absent: headache, numbness, paresthesias, confusion, abnormal gait Medical,Surgical,& Family Hx - Medical History Cardio: History of: Cardiac Dysrhythmia (A-Fib, HX of SVT, V-Fib), CHF, Hypertension, Valvular Heart Disease (past rheumatic fever), Cardiovascular Problems (CABG 2014) No history of: Congenital Heart Disease, [place], Pacemaker Psychological: History of: Psychiatric/Substance Abuse Tx (alcohol abuse) Neurology: No history of: Seizures HEENT: History of: Ear Problem (hard of hearing both), Eye Problem (can see colors and shapes), Dental Problems (no teeth) Endocrine: History of: Dyslipidemia No history of: Diabetes Mellitus (IDDM), Thyroid Disorder Rheumatology: No history of;: Psoriasis, Sjogrens, Systemic Lupus Erythematosus Respiratory: History of: COPD, Pneumonia Gastrointestinal: History of: Hemorrhoids, Polyps, GI Problems (bleeding stomach ulcers in ) Musculoskeletal: History of: Amputation (Yes; middle finger of right hand 1974) , Back/Neck Problems, Musculoskeletal Problems (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/23/15, amputated right middle finger 1974) Hematology: History of: Clotting Problems (ZARELTO FOR AFIB) No history of: Blood Transfusion Reaction Comment Only: Bleeding Problems (Stomach ulcer ()) Other: History of: MRSA No history of: Anesthesia Reactions, Anaphylaxis, Cancer, Eczema, HIV, Malignant Hyperthermia, Vancomycin-Resistant Enterococci, Skin Problems, Miscellaneous Medical Problems - Surgical History Cardiac Surgeries: Sugical HX of: Cardiac Surgery (CABG 2014) Patient Denies: Femoral-Popliteal Bypass Graft, Cardiac Catheterization, Carotid Endarterectomy, Internal Defibrillator, Vascular Access Devices Thoracic Surgeries: Patient denies;: Organ Transplant, Lobectomy Neurologic Surgeries: Patient denies: Neurologic Surgery HEENT Surgeries: Patient denies: Carotid Endarterectomy, Eye Surgery, Tonsilectomy & Adenoidectomy Abdominal Surgeries: Surgical HX of: Colonoscopy Patient denies: Abdominal Surgery, Splenectomy Reproductive Surgeries: Patient denies;: Genitourinary Surgery Orthopedic Surgeries: Surgical HX of;: Total Hip Replacement (recent admission) Patient denies;: Implanted Devices, Orthopedic Surgery, Spinal Surgery, Total Knee Replacement - Family History Family History: Reports;: Family Cancer (father lung), Family Hypertension ( BROTHER), Family Stroke (FATHER) Denies;: Family Diabetes, Family Psychiatric Problems Comment Only: Family Heart Disease (father cabg) - Social History Smoking Status: Current every day smoker Frequency of Alcohol Use: Frequently Type of Drug Use: None Marital Status: Single Lives With:: Alone Functional capacity: independent ambulation Exam Vital Signs: Vital Signs Temperature 98.8 F 03/18/17 19:00 Pulse Rate 69 03/18/17 19:00 Respiratory Rate 18 03/18/17 19:00 Blood Pressure 119/58 03/18/17 19:00 O2 Sat by Pulse Oximetry 95 03/18/17 19:00 - General General appearance: alert, in no apparent distress, other (hard of hearing; fragile in appearance) - Head Head exam: Present: atraumatic, normocephalic - Eye Eye exam: Present: PERRL, EOMI - ENT ENT exam: Present: mucous membranes moist. Absent: mucous membranes dry - Neck Neck exam: Present: full ROM, trachea midline - Chest Chest inspection: Present: symmetric chest wall rise. Absent: tenderness - Respiratory Respiratory exam: Present: rhonchi (bilateral), wheezes. Absent: accessory muscle use - Cardiovascular Cardiovascular exam: Present: irregular rhythm - Neurological Exam Neurological exam: Present: alert, oriented X3, CN II-XII intact. Absent: motor sensory deficit - Psychiatric Psychiatric exam: Present: normal affect, normal mood - Skin Skin exam: Present: warm (feels febrile), dry Course Course Narrative: Patient placed in CCU he has a history of GI bleed risk and benefits were explained to him and give him heparin and aspirin watch him closely serial CBCs - Consultations Consultation #1: Dr. Lagso was consulted will see patient. Admit to the CCU give him heparin baby aspirin IV Protonix watch for bleeding base in the CCU for a non- ST elevation [place] Time: 20:35 Results - Labs CBC & BMP: 03/18/17 19:30 03/18/17 19:30 Lab Results: I have reviewed the patients labs Labs: Laboratory Tests 03/18/17 03/18/17 19:30 19:30 WBC 14.4 H RBC 4.69 Hgb 13.1 L Hct 38.7 L MCV 82.5 L Plt Count 197 Neut % (Auto) 80.9 H Lymph % (Auto) 10.0 L Neut # (Auto) 11.7 H [place] # (Auto) 1.1 H Magnesium 2.3 Lipase 104.0 - Diagnostic Findings Procedure: Chest x-ray: report reviewed by me (Stable cardiomegaly. Airways disease such as chronic bronchitis or viral syndrome, not as sever as the prior study.) Critical Care Time Critical Care Time: Yes Total Critical Care Time: 60 Disposition Clinical Impression: Nicotine addiction, Unstable angina, COPD (chronic obstructive pulmonary disease), Non-STEMI (non-ST elevated myocardial infarction), Elevated troponin, Debility, History of GI bleed Case discussed with: patient, patient's family Disposition: Still a Patient Condition: Critical Time of Disposition: 20:42
[2017-03-18] MEDS ORDERED: ASPIRIN EC 81 MG TABLET PO STA (20:43)
[2017-03-18] MEDS ORDERED: ASPIRIN CHEW 81 MG TABLET PO ONE (21:33)
[2017-03-18 22:01] LABS: Apearance,Urine CLEAR (Clear); Bacteria,Urine Occasional /HPF (Few); Bilirubin,Urine Negative (Negative); Blood, Urine Negative (Negative); Glucose,Urine (UA) Negative (Negative); Hyaline Casts,Urine 1 /LPF (0-3); Ketones,Urine Negative (Negative); Nitrite,Urine Negative (Negative); Protein,Urine Negative; Squamous Epithelial Cell,Urine Occasional /HPF (0-10); Urine Color Yellow (Yellow); Urine Specific Gravity 1.004 (1.001-1.035); Urine Urobilinogen < 2.0 EU/DL (0.2-1.0); WBC,Urine 1 /HPF (0-6)
[2017-03-18] MEDS ORDERED: HEPARIN DRIP 25,000 UNITS/500 ML PREMIX IV SCH (22:11)
[2017-03-18] MEDS ORDERED: MAGNESIUM SULF RIDER 4 GM in PREMIX 1 EACH IV PRN (22:11)
[2017-03-18] MEDS ORDERED: MORPHINE 2 MG/1 ML SYRINGE IV PRN (22:11)
[2017-03-18] MEDS ORDERED: ALBUTEROL/IPRATROPIUM 3 ML NEB RESP TX PRN (22:11)
[2017-03-18] MEDS ORDERED: MAGNESIUM SULF RIDER 2 GM in PREMIX 1 EACH IV PRN (22:11)
[2017-03-18] MEDS ORDERED: NITROGLYCERIN 2% OINT 1 INCH/GM PACK TOP ONE (22:51)
[2017-03-18] MEDS: methylPREDNISolone SOD SUC 40 MG/1 ML VIAL IV SCH (23:13)
[2017-03-18] MEDS: POTASSIUM CHLORIDE 20 MEQ TABLET PO PRN (23:13)
[2017-03-18] MEDS: SODIUM CHLORIDE 0.9% 1,000 ML IV SCH (23:13)
[2017-03-18] MEDS: NITROGLYCERIN 2% OINT 1 INCH/GM PACK TOP SCH (23:13)
[2017-03-19 00:13] LABS: Basophils % 0.3 % (0.0-0.8); Eosinophils # 0.2 10*3/uL (0.0-0.87); Eosinophils % 1.1 % (0.00-10.9); Hematocrit 38.8 VOL% (42.0-52.0); Immature Granulocytes % 0.4 %; Immature Granulocytes Absolute 0.06 #; Lymphocytes # 1.8 10*3/uL (1.4-4.0); Lymphocytes % 13.2 % (21.2-54.2); Mean Corpuscular HGB Conc 33.5 GM/DL (32-36); Mean Corpuscular Hemoglobin 28 PG (27-34); Monocytes % 7.5 % (1.7-12.7); Neutrophils # 10.7 10*3/uL (1.4-7.4); Neutrophils % 77.5 % (38.7-73.9); Platelet Count 156 T/CUMM (130-400); Red Blood Count 4.62 MC/CUMM (3.8-5.5); White Blood Count 13.8 T/CUMM (4-12)
[2017-03-19 00:55] LABS: Burr Cells Few; Elliptocytes Few; Platelet Estimate Normal; Target Cells Few
[2017-03-19 01:30] LABS: Burr Cells Few; Elliptocytes Few; Platelet Estimate Normal; Target Cells Few
[2017-03-19 05:40] LABS: Albumin 2.9 G/DL (3.4-5.0); Bilirubin,Total 1.1 MG/DL (0.2-1.0); Calcium 8.4 MG/DL (8.5-10.1); Magnesium 2.3 MG/DL (1.8-2.4); Osmolality,Calculated 272.8 MOS/KG (273-304); Potassium 3.8 MMOL/L (3.5-5.1); Risk Ratio 1.84; Thyroid Stimulating Hormone 1.55 uIU/ml (0.358-3.74); Total Protein 6.1 G/DL (6.4-8.3); VLDL CHOLESTEROL 7.8 MG/DL
[2017-03-19 06:00] LABS: INR 1.1; PT Patient Result 11.4 SECS
--- NOTE | 2017-03-19 06:03 | EKG Report ---
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
[2017-03-19 06:06] LABS: Partial Thromboplastin Time 43.6 SECS (0-40)
[2017-03-19] MEDS: methylPREDNISolone SOD SUC 40 MG/1 ML VIAL IV SCH ×3 (06:11→21:33)
[2017-03-19] MEDS: NITROGLYCERIN 2% OINT 1 INCH/GM PACK TOP SCH ×3 (06:11→18:14)
--- NOTE | 2017-03-19 08:05 | XRay Report ---
History short of breath Comparison 03/18/2017 Heart is at the upper range normal in size of prior median sternotomy. The mediastinal contours unchanged. The bullous changes in the right lung apex seen on multiple prior studies. The markings the right lung apex unchanged. The mild interstitial prominence similar on the prior studies. No new areas of consolidation are seen. Chronic rib fractures noted Impression: Chronic changes similar on prior studies PROCEDURE INTERPRETED AT [facility] DEPARTMENT OF RADIOLOGY Final Report Signed by: Dr. Steph Dominguez
[2017-03-19 08:11] LABS: Basophils % 0.1 % (0.0-0.8); Hematocrit 37.2 VOL% (42.0-52.0); Hemoglobin 12.6 GM/DL (14.0-18.0); Immature Granulocytes % 0.6 %; Immature Granulocytes Absolute 0.07 #; Lymphocytes # 1.1 10*3/uL (1.4-4.0); Mean Corpuscular HGB Conc 33.9 GM/DL (32-36); Mean Corpuscular Hemoglobin 28 PG (27-34); Mean Corpuscular Volume 82.5 FL (87-102); Mean Platelet Volume 9.9 FL (9.6-12.0); Monocytes # 0.2 10*3/uL (0.11-0.8); Monocytes % 1.6 % (1.7-12.7); Neutrophils # 10.6 10*3/uL (1.4-7.4); Neutrophils % 88.7 % (38.7-73.9); Platelet Count 151 T/CUMM (130-400); Red Blood Count 4.51 MC/CUMM (3.8-5.5)
[2017-03-19 08:34] LABS: Burr Cells Slight; Giant Platelets Few; Hypochromasia Slight; Ovalocytes Slight; Platelet Estimate Normal
[2017-03-19] MEDS ORDERED: ONDANSETRON 4 MG/2 ML VIAL IV PRN (08:50)
[2017-03-19] MEDS ORDERED: POTASSIUM CHLORIDE 20 MEQ TABLET PO PRN (08:50)
[2017-03-19] MEDS ORDERED: MAGNESIUM HYDROXIDE SUSP 30 ML UDCUP PO PRN (08:50)
[2017-03-19] MEDS ORDERED: MAGNESIUM SULF RIDER 2 GM in PREMIX 1 EACH IV PRN ×2 (08:50→09:45)
--- NOTE | 2017-03-19 08:53 | Cardiology History & Physical ---
Addendum entered and electronically signed by Chloe Lopez NP 03/19/17 09: 23: Echocardiogram 01/04/2017: EF 60%, grade 1 diastolic dysfunction, mild LVH, PA P 28 mmHg assuming right atrial pressure of 5 mmHg. Original Note: <Chloe Lopez - Last Filed: 03/19/17 08:58> Assessment and Plan - Time spent with patient Time spent with patient: Greater than 30 minutes Time spent discussing smoking cessation with patient: 3 to 10 minutes (1) ACS (acute coronary syndrome) Status: Acute Assessment and plan: SEE PLAN OF CARE LISTED BELOW Current Visit: Yes (2) PAF (paroxysmal atrial fibrillation) Status: Chronic Assessment and plan: SEE PLAN OF CARE LISTED BELOW Current Visit: Yes (3) History of GI bleed Status: Chronic Assessment and plan: SEE PLAN OF CARE LISTED BELOW Current Visit: Yes (4) Dyslipidemia Status: Chronic Assessment and plan: SEE PLAN OF CARE LISTED BELOW Current Visit: Yes (5) History of GI bleed Status: Chronic Assessment and plan: SEE PLAN OF CARE LISTED BELOW Current Visit: Yes (6) H/O coronary artery bypass surgery Status: Acute Current Visit: No (7) Hypertension Status: Chronic Assessment and plan: SEE PLAN OF CARE LISTED BELOW Current Visit: No (8) Cardiomyopathy, ischemic Status: Chronic Assessment and plan: SEE PLAN OF CARE LISTED BELOW Current Visit: No (9) Coronary artery disease Status: Chronic Assessment and plan: SEE PLAN OF CARE LISTED BELOW Current Visit: No Qualifiers: Coronary Disease-Associated Artery/Lesion type: bypass graft (10) History of ETOH abuse Status: Chronic Assessment and plan: SEE PLAN OF CARE LISTED BELOW Current Visit: No (11) Tobacco abuse Status: Chronic Assessment and plan: SEE PLAN OF CARE LISTED BELOW Current Visit: No (12) PVD (peripheral vascular disease) Status: Chronic Assessment and plan: SEE PLAN OF CARE LISTED BELOW Current Visit: Yes History of Present Illness Chief complaint: chest pain History of present illness: [employer] SAL[employer] MANAGER: DR. GATICA Patient is being seen in the CCU. This is a late entry. Mr. Mcleod, 76WM, last seen in cardiology clinic 12/31/2016. Risk factors include: Known CAD (S/P CABG November 2014 LEVINE - LAD, SVG - OM), hypertension, dyslipidemia, sedentary lifestyle, PVD, tobaccoism. Ischemic cardiomyopathy, EF 35-40% December 2015. History of anemia related to GI bleed requiring multiple transfusions in December 2016 and in 2015 (may have been on Xarelto during one of the GI bleeding episodes). Daily alcohol use. History of PAF but unable to take aspirin or formal anticoagulant for stroke prevention. Patient was hospitalized in December 2016 with a hemoglobin of 6, required 4 units packed red blood cells. Refused invasive GI workup. July 2015 EGD revealed a history of Billroth I anastomosis with pyloroplasty, erosions patchy gastritis with polyp. Presented to the ED of [facility] March 18, 2017 with complaints of chest pain. Chest discomfort started 2 days prior to seeking medical advice. Describes as sharp and squeezing in the center of his chest but cannot further elaborate the quality of chest discomfort. Located in the center of his chest without radiation, not associated with shortness of breath but was associated with dizziness. Initially, occurred with exertion but has occurred now at rest lasting approximately 5-10 minutes at a time in relieving itself on its own. He has been told not to take aspirin in the past due to his history of GI bleed but he did take an aspirin evening. Rates discomfort as a 7 on a scale of 1-10, currently chest pain-free. He actually sought medical advice because of heart fluttering. He has a history of atrial fibrillation and felt as if his heart was racing. He took an additional Amiodarone which seemed to improve the fluttering he was feeling. Troponin 2.28 initially and trending down. EKG reveals a nonspecific ST T-wave abnormality. Patient has received 81 mg Aspirin and is being maintained on IV Heparin. Received beta-leonardo, nitro glycerin paste, took statin last evening. Hemoglobin 13.0 on admission, after receiving continuous IV heparin instead to be 12.6 this morning. Patient does acknowledge that he has black tarry stools daily. Will keep the patient NPO, further discuss with Dr. Tami Lagos and await additional recommendations. ASSESSMENT/PLAN: 1. ACS - currently chest pain-free. Continue to cycle cardiac biomarkers, EKG. Has received appropriate medications. 2. CAD S/P CABG - information listed above. Due to history of GI bleeding in the past, he has been off of Aspirin but has continued Plavix 3. HYPERTENSION - usually well controlled. Will adjust medications accordingly during hospital stay 4. DYSLIPIDEMIA - continue lipid-lowering agent, LDL 50. 5. ANEMIA WITH HISTORY OF GI BLEED - continue to monitor hemoglobin hematocrit closely. Check stool for occult blood 6. PAF - currently normal sinus rhythm. Continue Amiodarone. Not a candidate for formal anticoagulation due to his history of anemia and GI bleed requiring transfusions. 7. TOBACCO USE - greater than 5 minutes was spent today discussing the merits of tobacco cessation 8. ALCOHOL USE - patient admits to daily, chronic alcohol use to include up to 4 beers each evening. Will start folate and low dose Ativan for prevention of delirium tremens. Home Medications Medication Instructions Recorded Confirmed Type Folic Acid Tab 0.4 mg PO DAILY tablet 08/27/15 03/18/17 Rx Atorvastatin [Lipitor] 40 mg PO DAILY tablet 11/26/15 03/18/17 Rx Furosemide Tab [Lasix Tab] 40 mg PO DAILY tablet 12/04/15 03/18/17 Rx Metoprolol Succinate Xl [Toprol Xl] 25 mg PO DAILY tablet 12/04/15 03/18/17 Rx Spironolactone [Aldactone] 25 mg PO DAILY tablet 12/04/15 03/18/17 Rx Amiodarone HCl 100 mg PO DAILY 01/11/17 03/18/17 History Niacin 100 mg PO DAILY 01/11/17 03/18/17 History Pantoprazole Tab [Protonix Tab] 40 mg PO DAILY 01/11/17 03/18/17 History Allergies Allergy/AdvReac Type Severity Reaction Status Date / Time Cortisone AdvReac Unknown/Unable Verified 11/22/15 14:27 to obtain Review of systems: REVIEW OF SYSTEMS: - Constitutional Constitutional: Present: Fatigue. Reports he had 15 pound weight loss over the past month despite continuing his usual caloric intake. Denies syncope, anorexia, night sweats - EENT Eyes: Absent: blurry vision, loss of vision, diplopia Ears: Absent: decreased hearing, ear pain, ear discharge - Cardiovascular Cardiovascular: Present: chest pain with exertion and at rest. Acknowledges dyspnea on exertion, Palpitations. Cramping when walking about right lower extremity previously declined invasive workup for his known PVD. Absent: chest pain with deep breath, - Respiratory Respiratory: Present: BARRERA, denies cough. Absent: wheezing, hemoptysis, change in phlegm color - Gastrointestinal Gastrointestinal: Denies: constipation. Reports dark tarry stools daily. Denies abdominal pain or vomiting of blood. - Genitourinary Genitourinary: Absent: difficulty urinating, dysuria, urinary hesitancy, flank pain - Musculoskeletal Musculoskeletal: Present: back pain Absent: joint swelling, muscle cramps, muscle weakness - Neurological Neurological: Present: normal gait without frequent falls. Absent: dizziness, hemiparesis - Psychiatric Psychiatric: Absent: anxiety, depression, difficulty concentrating - Endocrine Endocrine: Present: fatigue. Absent: cold intolerance, heat intolerance, polyuria, polyphagia, polydipsia - Hematologic/Lymphatic Hematologic/Lymphatic: Present: easy bruising. Absent: easy bleeding -Integumentary Integumentary: Absent: lesions, rashes, skin breakdown Medical,Surgical,& Family Hx - Medical History Cardio: History of: Cardiac Dysrhythmia (A-Fib, HX of SVT, V-Fib), CHF, CAD, Hypertension, Valvular Heart Disease (past rheumatic fever), Cardiovascular Problems (CABG 2014) No history of: Congenital Heart Disease, [place], Pacemaker Psychological: History of: Psychiatric/Substance Abuse Tx (alcohol abuse) Neurology: No history of: Seizures HEENT: History of: Ear Problem (hard of hearing both), Eye Problem (can see colors and shapes), Dental Problems (no teeth) Endocrine: History of: Dyslipidemia No history of: Diabetes Mellitus (IDDM), Thyroid Disorder Rheumatology: No history of;: Psoriasis, Sjogrens, Systemic Lupus Erythematosus Respiratory: History of: COPD, Pneumonia Gastrointestinal: History of: Hemorrhoids, Polyps, GI Problems (bleeding stomach ulcers in ) Musculoskeletal: History of: Amputation (Yes; middle finger of right hand 1974) , Back/Neck Problems, Musculoskeletal Problems (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/23/15, amputated right middle finger 1974) Hematology: History of: Clotting Problems (ZARELTO FOR AFIB) No history of: Blood Transfusion Reaction Comment Only: Bleeding Problems (Stomach ulcer ()) Other: History of: MRSA No history of: Anesthesia Reactions, Anaphylaxis, Cancer, Eczema, HIV, Malignant Hyperthermia, Vancomycin-Resistant Enterococci, Skin Problems, Miscellaneous Medical Problems - Surgical History Cardiac Surgeries: Sugical HX of: Cardiac Surgery (CABG 2014) Patient Denies: Femoral-Popliteal Bypass Graft, Cardiac Catheterization, Carotid Endarterectomy, Internal Defibrillator, Vascular Access Devices Thoracic Surgeries: Patient denies;: Organ Transplant, Lobectomy Neurologic Surgeries: Patient denies: Neurologic Surgery HEENT Surgeries: Patient denies: Carotid Endarterectomy, Eye Surgery, Tonsilectomy & Adenoidectomy Abdominal Surgeries: Surgical HX of: Colonoscopy Patient denies: Abdominal Surgery, Splenectomy Reproductive Surgeries: Patient denies;: Genitourinary Surgery Orthopedic Surgeries: Surgical HX of;: Total Hip Replacement (recent admission) Patient denies;: Implanted Devices, Orthopedic Surgery, Spinal Surgery, Total Knee Replacement - Family History Family History: Reports;: Family Cancer (father lung), Family Hypertension ( BROTHER), Family Stroke (FATHER) Denies;: Family Diabetes, Family Psychiatric Problems Comment Only: Family Heart Disease (father cabg) - Social History Smoking Status: Current every day smoker Have you smoked in the last 12 months: Yes Time spent discussing smoking cessation with patient: 3 to 10 minutes Frequency of Alcohol Use: Frequently Type of Drug Use: None Cardiology Physical Exam - Constitutional Vitals: Vital Signs Temp Pulse Resp BP Pulse Ox 98.0 F 59 L 20 113/52 96 03/19/17 04:00 03/19/17 06:00 03/19/17 06:00 03/19/17 06:00 03/19/17 06:00 Intake and Output 03/18/17 03/19/17 03/19/17 23:59 07:59 15:59 Intake Total 112 / 112 Balance 112 / 112 Intake: IV 112 / 112 Heparin Drip 25,000 Units 112 / 112 /500 ml25,000 units In 500 ml @ 12 UNITS/KG/HR 14.4 mls/hr IV TITRATE MARYANN Rx#:[id number] Other: Voiding Method Toilet Toilet # Voids 1 0 Weight 60 kg 60 kg Patient Weight 03/19/17 23:59 Weight 60 kg Exam: General: [Thin, pale male. In no apparent distress. Cooperative. HEENT: [PERRL, normocephalic, atraumatic. Mucous membranes moist. No jaundice noted. Conjunctiva moist and clear, sclerae anicteric. Slightly hard of hearing] Neck: No JVD/HJR, no thyromegaly or lymphadenopathy noted. No carotid bruit appreciated Cardiac: [Regular rate and rhythm.] [No obvious murmur rub or gallop.] Lungs: [Clear to auscultation without accessory muscle use to assist the respiratory pattern.] Oxygen in use via nasal cannula Abdomen: Soft, bowel sounds normoactive. Nontender and nondistended. No abdominal bruit or thrill noted. No masses noted. Musculoskeletal: No fluid collection. Decreased range of motion is noted. Extremities: No clubbing, cyanosis noted. [ No edema noted.] Upper extremity pulses 2+. Difficult to palpate PT/DP pulses but feet warm to touch Skin: No unusual lesions or rashes. No skin breakdown appreciated. Neuro: Awake, alert and oriented 3. Moves all extremities well without hemiparesis or paralysis. No essential tremor is appreciated. Result/EKG - Labs CBC & BMP: 03/19/17 07:53 03/19/17 03:55 Lab Results: I have reviewed the past 24 hour labs Labs: Laboratory Results - last 24 hr 03/18/17 03/18/17 03/18/17 19:30 19:30 19:30 WBC 14.4 H RBC 4.69 Hgb 13.1 L Hct 38.7 L MCV 82.5 L MCH 28 MCHC 33.9 Plt Count 197 MPV 10.2 Neut % (Auto) 80.9 H Lymph % (Auto) 10.0 L Banner % (Auto) 7.3 Eos % (Auto) 1.4 Baso % (Auto) 0.2 Neut # (Auto) 11.7 H Lymph # (Auto) 1.5 Banner # (Auto) 1.1 H Eos # (Auto) 0.2 Baso # (Auto) 0.0 Immature Gran % 0.2 Nucleated RBC % 0.0 Immature Gran # 0.03 Nucleated RBCs # 0.00 Platelet Estimate Normal Giant Platelets Immature Plt Fraction 6.8 Hypochromasia Anisocytosis Target Cells Few Ovalocytes Micheal Cells Few Elliptocytes Few INR PT Patient/Control Mix Circ Anticoag PTT Sodium 133 L Potassium 3.4 L Chloride 100 Carbon Dioxide 24 Anion Gap 12.4 BUN 7 Creatinine 0.80 GFR Calculation 94 BUN/Creatinine Ratio 8.00 Glucose 92 Calculated Osmolality 263.4 L Calcium 8.5 Magnesium Total Bilirubin 0.80 AST 36 ALT 20 Alkaline Phosphatase 107 Total Creatine Kinase CK-MB (CK-2) Troponin I 2.280 H B-Natriuretic Peptide Total Protein 6.8 Albumin 3.2 L Globulin 3.6 H Albumin/Globulin Ratio 0.8 L Triglycerides Cholesterol LDL Cholesterol VLDL Cholesterol HDL Cholesterol Heart Disease Risk Ratio Lipase Free T4 TSH 3rd Generation Urine Color Urine Appearance Urine pH Ur Specific [place] Urine Protein Urine Glucose (UA) Urine Ketones Urine Blood Urine Nitrate Urine Bilirubin Urine Urobilinogen Urine Leukocytes Urine WBC Ur Squamous Epith Cells Urine Bacteria Hyaline Casts Ur Culture Indicated? 03/18/17 03/18/17 03/18/17 19:30 19:30 19:30 WBC RBC Hgb Hct MCV MCH MCHC Plt Count MPV Neut % (Auto) Lymph % (Auto) Banner % (Auto) Eos % (Auto) Baso % (Auto) Neut # (Auto) Lymph # (Auto) Banner # (Auto) Eos # (Auto) Baso # (Auto) Immature Gran % Nucleated RBC % Immature Gran # Nucleated RBCs # Platelet Estimate Giant Platelets Immature Plt Fraction Hypochromasia Anisocytosis Target Cells Ovalocytes [place] Cells Elliptocytes INR 1.0 PT Patient/Control Mix 10.6 Circ Anticoag PTT 30.2 D Sodium Potassium Chloride Carbon Dioxide Anion Gap BUN Creatinine GFR Calculation BUN/Creatinine Ratio Glucose Calculated Osmolality Calcium Magnesium 2.3 Total Bilirubin AST ALT Alkaline Phosphatase Total Creatine Kinase CK-MB (CK-2) Troponin I B-Natriuretic Peptide Total Protein Albumin Globulin Albumin/Globulin Ratio Triglycerides Cholesterol LDL Cholesterol VLDL Cholesterol HDL Cholesterol Heart Disease Risk Ratio Lipase 104.0 Free T4 TSH 3rd Generation Urine Color Yellow Urine Appearance Clear Urine pH 6.0 Ur Specific [place] 1.004 Urine Protein Negative Urine Glucose (UA) Negative Urine Ketones Negative Urine Blood Negative Urine Nitrate Negative Urine Bilirubin Negative Urine Urobilinogen < 2.0 H Urine Leukocytes Negative Urine WBC 1 Ur Squamous Epith Cells Occasional Urine Bacteria Occasional Hyaline Casts 1 Ur Culture Indicated? Not indicated 03/18/17 03/18/17 03/18/17 19:30 23:32 23:32 WBC 13.8 H RBC 4.62 Hgb 13.0 L Hct 38.8 L MCV 84.0 L MCH 28 MCHC 33.5 Plt Count 156 D MPV Neut % (Auto) 77.5 H Lymph % (Auto) 13.2 L Banner % (Auto) 7.5 Eos % (Auto) 1.1 Baso % (Auto) 0.3 Neut # (Auto) 10.7 H Lymph # (Auto) 1.8 Banner # (Auto) 1.0 H Eos # (Auto) 0.2 Baso # (Auto) 0.0 Immature Gran % 0.4 Nucleated RBC % 0.0 Immature Gran # 0.06 Nucleated RBCs # 0.00 Platelet Estimate Normal Giant Platelets Immature Plt Fraction 11.1 H Hypochromasia Anisocytosis Target Cells Few Ovalocytes [place] Cells Few Elliptocytes Few INR PT Patient/Control Mix Circ Anticoag PTT Sodium Potassium Chloride Carbon Dioxide Anion Gap BUN Creatinine GFR Calculation BUN/Creatinine Ratio Glucose Calculated Osmolality Calcium Magnesium Total Bilirubin AST ALT Alkaline Phosphatase Total Creatine Kinase 96 CK-MB (CK-2) 3.9 H Troponin I 2.000 H B-Natriuretic Peptide 468 H Total Protein Albumin Globulin Albumin/Globulin Ratio Triglycerides Cholesterol LDL Cholesterol VLDL Cholesterol HDL Cholesterol Heart Disease Risk Ratio Lipase Free T4 TSH 3rd Generation Urine Color Urine Appearance Urine pH Ur Specific [place] Urine Protein Urine Glucose (UA) Urine Ketones Urine Blood Urine Nitrate Urine Bilirubin Urine Urobilinogen Urine Leukocytes Urine WBC Ur Squamous Epith Cells Urine Bacteria Hyaline Casts Ur Culture Indicated? 03/19/17 03/19/17 03/19/17 03:55 03:55 03:55 WBC RBC Hgb Hct MCV MCH MCHC Plt Count MPV Neut % (Auto) Lymph % (Auto) Banner % (Auto) Eos % (Auto) Baso % (Auto) Neut # (Auto) Lymph # (Auto) Banner # (Auto) Eos # (Auto) Baso # (Auto) Immature Gran % Nucleated RBC % Immature Gran # Nucleated RBCs # Platelet Estimate Giant Platelets Immature Plt Fraction Hypochromasia Anisocytosis Target Cells Ovalocytes [place] Cells Elliptocytes INR PT Patient/Control Mix Circ Anticoag PTT Sodium 137 Potassium 3.8 Chloride 104 Carbon Dioxide 26 Anion Gap 10.8 BUN 8 Creatinine 0.70 GFR Calculation 95 BUN/Creatinine Ratio 11.00 Glucose 132 H Calculated Osmolality 272.8 L Calcium 8.4 L Magnesium 2.3 Total Bilirubin 1.10 H AST 25 ALT 18 Alkaline Phosphatase 95 Total Creatine Kinase CK-MB (CK-2) Troponin I B-Natriuretic Peptide 610 H Total Protein 6.1 L Albumin 2.9 L Globulin 3.2 Albumin/Globulin Ratio 0.9 L Triglycerides 39 Cholesterol 116 LDL Cholesterol 50.0 VLDL Cholesterol 7.8 HDL Cholesterol 63 H Heart Disease Risk Ratio 1.84 Lipase Free T4 1.65 H TSH 3rd Generation 1.550 Urine Color Urine Appearance Urine pH Ur Specific [place] Urine Protein Urine Glucose (UA) Urine Ketones Urine Blood Urine Nitrate Urine Bilirubin Urine Urobilinogen Urine Leukocytes Urine WBC Ur Squamous Epith Cells Urine Bacteria Hyaline Casts Ur Culture Indicated? 03/19/17 03/19/17 03/19/17 05:25 05:25 07:53 WBC 12.0 RBC 4.51 Hgb 12.6 L Hct 37.2 L MCV 82.5 L MCH 28 MCHC 33.9 Plt Count 151 MPV 9.9 Neut % (Auto) 88.7 H Lymph % (Auto) 9.0 L Banner % (Auto) 1.6 L Eos % (Auto) 0.0 Baso % (Auto) 0.1 Neut # (Auto) 10.6 H Lymph # (Auto) 1.1 L [place] # (Auto) 0.2 Eos # (Auto) 0.0 Baso # (Auto) 0.0 Immature Gran % 0.6 Nucleated RBC % 0.0 Immature Gran # 0.07 Nucleated RBCs # 0.00 Platelet Estimate Normal Giant Platelets Few Immature Plt Fraction 0.0 Hypochromasia Slight Anisocytosis Target Cells Ovalocytes Slight Micheal Cells Slight Elliptocytes INR 1.1 PT Patient/Control Mix 11.4 Circ Anticoag PTT 43.6 H D Sodium Potassium Chloride Carbon Dioxide Anion Gap BUN Creatinine GFR Calculation BUN/Creatinine Ratio Glucose Calculated Osmolality Calcium Magnesium Total Bilirubin AST ALT Alkaline Phosphatase Total Creatine Kinase 71 D CK-MB (CK-2) 3.1 Troponin I 1.250 H D B-Natriuretic Peptide Total Protein Albumin Globulin Albumin/Globulin Ratio Triglycerides Cholesterol LDL Cholesterol VLDL Cholesterol HDL Cholesterol Heart Disease Risk Ratio Lipase Free T4 TSH 3rd Generation Urine Color Urine Appearance Urine pH Ur Specific [place] Urine Protein Urine Glucose (UA) Urine Ketones Urine Blood Urine Nitrate Urine Bilirubin Urine Urobilinogen Urine Leukocytes Urine WBC Ur Squamous Epith Cells Urine Bacteria Hyaline Casts Ur Culture Indicated? - Diagnostic Findings Procedure: Chest x-ray: report reviewed by me - EKG EKG results: interpreted by me EKG shows: sinus rhythm <Tami Lagos - Last Filed: 03/19/17 11:05> History of Present Illness History of present illness: I have personally interviewed and evaluated the patient, reviewed the chart and discussed medical decision-making with Practitioner Jessica. I have read this note and agree with her documentation here in. The patient has anterior T-wave inversions which could represent anterior ischemia. I have reiterated the dangers of recurrent gastritis with continued alcohol use, and his need for aspirin, for at least one month if we proceed with intervention. He is very clear that he will not be abstaining from any alcohol and he will continue to drink at least 2-3 beers a day. I have reviewed that of course he is in charge of his own health and making his own decisions and that my job is to relay the risks of that so that he can make more educated decisions. He does not have any family nearby, a friend was in the room during our discussion. He denies any known contrast allergy. Cardiology Physical Exam - Constitutional Vitals: Vital Signs Temp Pulse Resp BP Pulse Ox 97.8 F 73 13 127/62 96 03/19/17 08:00 03/19/17 10:00 03/19/17 09:00 03/19/17 10:00 03/19/17 10:00 Intake and Output 03/18/17 03/19/17 03/19/17 23:59 07:59 15:59 Intake Total 112 / 112 800 / 800 Balance 112 / 112 800 / 800 Intake: IV 112 / 112 800 / 800 Heparin Drip 25,000 Units 112 / 112 /500 ml25,000 units In 500 ml @ 12 UNITS/KG/HR 14.4 mls/hr IV TITRATE MARYANN Rx#:[id number] Ns 1,000 ml @ 65 mls/hr 800 / 800 IV .[id number] MARYANN Rx#: [id number] Other: Voiding Method Toilet Toilet # Voids 1 0 Weight 60 kg 60 kg Patient Weight 03/19/17 23:59 Weight 60 kg Result/EKG - Labs CBC & BMP: 03/19/17 07:53 03/19/17 03:55 Labs: Laboratory Results - last 24 hr 03/18/17 03/18/17 03/18/17 19:30 19:30 19:30 WBC 14.4 H RBC 4.69 Hgb 13.1 L Hct 38.7 L MCV 82.5 L MCH 28 MCHC 33.9 Plt Count 197 MPV 10.2 Neut % (Auto) 80.9 H Lymph % (Auto) 10.0 L [place]anner % (Auto) 7.3 Eos % (Auto) 1.4 Baso % (Auto) 0.2 Neut # (Auto) 11.7 H Lymph # (Auto) 1.5 Banner # (Auto) 1.1 H Eos # (Auto) 0.2 Baso # (Auto) 0.0 Immature Gran % 0.2 Nucleated RBC % 0.0 Immature Gran # 0.03 Nucleated RBCs # 0.00 Platelet Estimate Normal Giant Platelets Immature Plt Fraction 6.8 Hypochromasia Anisocytosis Target Cells Few Ovalocytes Micheal Cells Few Elliptocytes Few INR PT Patient/Control Mix Circ Anticoag PTT Sodium 133 L Potassium 3.4 L Chloride 100 Carbon Dioxide 24 Anion Gap 12.4 BUN 7 Creatinine 0.80 GFR Calculation 94 BUN/Creatinine Ratio 8.00 Glucose 92 Calculated Osmolality 263.4 L Calcium 8.5 Magnesium Total Bilirubin 0.80 AST 36 ALT 20 Alkaline Phosphatase 107 Total Creatine Kinase CK-MB (CK-2) Troponin I 2.280 H B-Natriuretic Peptide Total Protein 6.8 Albumin 3.2 L Globulin 3.6 H Albumin/Globulin Ratio 0.8 L Triglycerides Cholesterol LDL Cholesterol VLDL Cholesterol HDL Cholesterol Heart Disease Risk Ratio Lipase Free T4 TSH 3rd Generation Urine Color Urine Appearance Urine pH Ur Specific [place] Urine Protein Urine Glucose (UA) Urine Ketones Urine Blood Urine Nitrate Urine Bilirubin Urine Urobilinogen Urine Leukocytes Urine WBC Ur Squamous Epith Cells Urine Bacteria Hyaline Casts Ur Culture Indicated? 03/18/17 03/18/17 03/18/17 19:30 19:30 19:30 WBC RBC Hgb Hct MCV MCH MCHC Plt Count MPV Neut % (Auto) Lymph % (Auto) [place] % (Auto) Eos % (Auto) Baso % (Auto) Neut # (Auto) Lymph # (Auto) [place] # (Auto) Eos # (Auto) Baso # (Auto) Immature Gran % Nucleated RBC % Immature Gran # Nucleated RBCs # Platelet Estimate Giant Platelets Immature Plt Fraction Hypochromasia Anisocytosis Target Cells Ovalocytes Micheal Cells Elliptocytes INR 1.0 PT Patient/Control Mix 10.6 Circ Anticoag PTT 30.2 D Sodium Potassium Chloride Carbon Dioxide Anion Gap BUN Creatinine GFR Calculation BUN/Creatinine Ratio Glucose Calculated Osmolality Calcium Magnesium 2.3 Total Bilirubin AST ALT Alkaline Phosphatase Total Creatine Kinase CK-MB (CK-2) Troponin I B-Natriuretic Peptide Total Protein Albumin Globulin Albumin/Globulin Ratio Triglycerides Cholesterol LDL Cholesterol VLDL Cholesterol HDL Cholesterol Heart Disease Risk Ratio Lipase 104.0 Free T4 TSH 3rd Generation Urine Color Yellow Urine Appearance Clear Urine pH 6.0 Ur Specific [place] 1.004 Urine Protein Negative Urine Glucose (UA) Negative Urine Ketones Negative Urine Blood Negative Urine Nitrate Negative Urine Bilirubin Negative Urine Urobilinogen < 2.0 H Urine Leukocytes Negative Urine WBC 1 Ur Squamous Epith Cells Occasional Urine Bacteria Occasional Hyaline Casts 1 Ur Culture Indicated? Not indicated 03/18/17 03/18/17 03/18/17 19:30 23:32 23:32 WBC 13.8 H RBC 4.62 Hgb 13.0 L Hct 38.8 L MCV 84.0 L MCH 28 MCHC 33.5 Plt Count 156 D MPV Neut % (Auto) 77.5 H Lymph % (Auto) 13.2 L [place] % (Auto) 7.5 Eos % (Auto) 1.1 Baso % (Auto) 0.3 Neut # (Auto) 10.7 H Lymph # (Auto) 1.8 [place]anner # (Auto) 1.0 H Eos # (Auto) 0.2 Baso # (Auto) 0.0 Immature Gran % 0.4 Nucleated RBC % 0.0 Immature Gran # 0.06 Nucleated RBCs # 0.00 Platelet Estimate Normal Giant Platelets Immature Plt Fraction 11.1 H Hypochromasia Anisocytosis Target Cells Few Ovalocytes [place] Cells Few Elliptocytes Few INR PT Patient/Control Mix Circ Anticoag PTT Sodium Potassium Chloride Carbon Dioxide Anion Gap BUN Creatinine GFR Calculation BUN/Creatinine Ratio Glucose Calculated Osmolality Calcium Magnesium Total Bilirubin AST ALT Alkaline Phosphatase Total Creatine Kinase 96 CK-MB (CK-2) 3.9 H Troponin I 2.000 H B-Natriuretic Peptide 468 H Total Protein Albumin Globulin Albumin/Globulin Ratio Triglycerides Cholesterol LDL Cholesterol VLDL Cholesterol HDL Cholesterol Heart Disease Risk Ratio Lipase Free T4 TSH 3rd Generation Urine Color Urine Appearance Urine pH Ur Specific [place] Urine Protein Urine Glucose (UA) Urine Ketones Urine Blood Urine Nitrate Urine Bilirubin Urine Urobilinogen Urine Leukocytes Urine WBC Ur Squamous Epith Cells Urine Bacteria Hyaline Casts Ur Culture Indicated? 03/19/17 03/19/17 03/19/17 03:55 03:55 03:55 WBC RBC Hgb Hct MCV MCH MCHC Plt Count MPV Neut % (Auto) Lymph % (Auto) [place] % (Auto) Eos % (Auto) Baso % (Auto) Neut # (Auto) Lymph # (Auto) [place] # (Auto) Eos # (Auto) Baso # (Auto) Immature Gran % Nucleated RBC % Immature Gran # Nucleated RBCs # Platelet Estimate Giant Platelets Immature Plt Fraction Hypochromasia Anisocytosis Target Cells Ovalocytes Micheal Cells Elliptocytes INR PT Patient/Control Mix Circ Anticoag PTT Sodium 137 Potassium 3.8 Chloride 104 Carbon Dioxide 26 Anion Gap 10.8 BUN 8 Creatinine 0.70 GFR Calculation 95 BUN/Creatinine Ratio 11.00 Glucose 132 H Calculated Osmolality 272.8 L Calcium 8.4 L Magnesium 2.3 Total Bilirubin 1.10 H AST 25 ALT 18 Alkaline Phosphatase 95 Total Creatine Kinase CK-MB (CK-2) Troponin I B-Natriuretic Peptide 610 H Total Protein 6.1 L Albumin 2.9 L Globulin 3.2 Albumin/Globulin Ratio 0.9 L Triglycerides 39 Cholesterol 116 LDL Cholesterol 50.0 VLDL Cholesterol 7.8 HDL Cholesterol 63 H Heart Disease Risk Ratio 1.84 Lipase Free T4 1.65 H TSH 3rd Generation 1.550 Urine Color Urine Appearance Urine pH Ur Specific [place] Urine Protein Urine Glucose (UA) Urine Ketones Urine Blood Urine Nitrate Urine Bilirubin Urine Urobilinogen Urine Leukocytes Urine WBC Ur Squamous Epith Cells Urine Bacteria Hyaline Casts Ur Culture Indicated? 03/19/17 03/19/17 03/19/17 05:25 05:25 07:53 WBC 12.0 RBC 4.51 Hgb 12.6 L Hct 37.2 L MCV 82.5 L MCH 28 MCHC 33.9 Plt Count 151 MPV 9.9 Neut % (Auto) 88.7 H Lymph % (Auto) 9.0 L Banner % (Auto) 1.6 L Eos % (Auto) 0.0 Baso % (Auto) 0.1 Neut # (Auto) 10.6 H Lymph # (Auto) 1.1 L [place] # (Auto) 0.2 Eos # (Auto) 0.0 Baso # (Auto) 0.0 Immature Gran % 0.6 Nucleated RBC % 0.0 Immature Gran # 0.07 Nucleated RBCs # 0.00 Platelet Estimate Normal Giant Platelets Few Immature Plt Fraction 0.0 Hypochromasia Slight Anisocytosis Target Cells Ovalocytes Slight [place] Cells Slight Elliptocytes INR 1.1 PT Patient/Control Mix 11.4 Circ Anticoag PTT 43.6 H D Sodium Potassium Chloride Carbon Dioxide Anion Gap BUN Creatinine GFR Calculation BUN/Creatinine Ratio Glucose Calculated Osmolality Calcium Magnesium Total Bilirubin AST ALT Alkaline Phosphatase Total Creatine Kinase 71 D CK-MB (CK-2) 3.1 Troponin I 1.250 H D B-Natriuretic Peptide Total Protein Albumin Globulin Albumin/Globulin Ratio Triglycerides Cholesterol LDL Cholesterol VLDL Cholesterol HDL Cholesterol Heart Disease Risk Ratio Lipase Free T4 TSH 3rd Generation Urine Color Urine Appearance Urine pH Ur Specific [place] Urine Protein Urine Glucose (UA) Urine Ketones Urine Blood Urine Nitrate Urine Bilirubin Urine Urobilinogen Urine Leukocytes Urine WBC Ur Squamous Epith Cells Urine Bacteria Hyaline Casts Ur Culture Indicated? 03/19/17 09:22 WBC RBC Hgb Hct MCV MCH MCHC Plt Count MPV Neut % (Auto) Lymph % (Auto) [place]anner % (Auto) Eos % (Auto) Baso % (Auto) Neut # (Auto) Lymph # (Auto) [place] # (Auto) Eos # (Auto) Baso # (Auto) Immature Gran % Nucleated RBC % Immature Gran # Nucleated RBCs # Platelet Estimate Giant Platelets Immature Plt Fraction Hypochromasia Anisocytosis Target Cells Ovalocytes Micheal Cells Elliptocytes INR PT Patient/Control Mix Circ Anticoag PTT Sodium Potassium Chloride Carbon Dioxide Anion Gap BUN Creatinine GFR Calculation BUN/Creatinine Ratio Glucose Calculated Osmolality Calcium Magnesium Total Bilirubin AST ALT Alkaline Phosphatase Total Creatine Kinase CK-MB (CK-2) Troponin I 1.010 H B-Natriuretic Peptide Total Protein Albumin Globulin Albumin/Globulin Ratio Triglycerides Cholesterol LDL Cholesterol VLDL Cholesterol HDL Cholesterol Heart Disease Risk Ratio Lipase Free T4 TSH 3rd Generation Urine Color Urine Appearance Urine pH Ur Specific [place] Urine Protein Urine Glucose (UA) Urine Ketones Urine Blood Urine Nitrate Urine Bilirubin Urine Urobilinogen Urine Leukocytes Urine WBC Ur Squamous Epith Cells Urine Bacteria Hyaline Casts Ur Culture Indicated?
[2017-03-19] MEDS ORDERED: AMIODARONE 200 MG TABLET PO SCH (09:00)
[2017-03-19] MEDS ORDERED: NIACIN 100 MG PO SCH (09:00)
[2017-03-19] MEDS ORDERED: PANTOPRAZOLE 40 MG TABLET PO SCH (09:00)
[2017-03-19] MEDS ORDERED: PANTOPRAZOLE 40 MG VIAL IV SCH (09:00)
[2017-03-19] MEDS ORDERED: FOLIC ACID 0.4 MG TABLET PO SCH (09:00)
--- NOTE | 2017-03-19 09:14 | EKG Report ---
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
[2017-03-19] MEDS: SODIUM CHLORIDE 0.45% 1,000 ML IV SCH ×2 (09:16→21:31)
[2017-03-19] MEDS: FUROSEMIDE 40 MG TABLET PO SCH (09:17)
[2017-03-19] MEDS: ATORVASTATIN 40 MG TABLET PO SCH (09:17)
[2017-03-19] MEDS: PANTOPRAZOLE 40 MG TABLET PO SCH (09:18)
[2017-03-19] MEDS: SPIRONOLACTONE 25 MG TABLET PO SCH (09:18)
[2017-03-19] MEDS: ASPIRIN EC 81 MG TABLET PO SCH (09:18)
[2017-03-19] MEDS: METOPROLOL SUCCINATE XL 25 MG TABLET PO SCH (09:18)
[2017-03-19] MEDS: FOLIC ACID 1 MG TABLET PO SCH ×3 (09:32→21:33)
[2017-03-19] MEDS ORDERED: DIAZEPAM 5 MG TABLET PO ONE (09:45)
[2017-03-19] MEDS ORDERED: POTASSIUM CHLORIDE RIDER 10 MEQ in PREMIX 1 EACH IV PRN (09:45)
[2017-03-19] MEDS ORDERED: diphenhydrAMINE CAP 25 MG CAPSULE PO ONE (09:45)
--- NOTE | 2017-03-19 09:52 | Physician Query Form ---
CLICK EDIT DOCUMENT TO SELECT QUERY ANSWER --> OK --> SIGN Deb Muir RN, CCDS Certified Clinical [employer] Windows Engineer W) [phone] (f) [phone] [email or web address] PROVIDERS: Make your selection(s) from the choices in EACH section by typing an "x" and enter comments in the comment section. Please use your independent medical judgment in providing your response. This request does not imply that any particular answer is desired or expected. CLINICAL INDICATORS: (Providers should not edit this section) The medical record indicates that the patient was admitted with a Non-STEMI, history of CHF, "Ischemic cardiomyopathy EF 35-40%", BNP 468# on the : that has increased to 610# on the and the patient is on PO Lasix. Please provide further specificity regarding CHF. ACUITY: ( ) Acute ( ) Chronic ( ) Acute on Chronic (x ) Clinically unable to determine TYPE: ( ) Systolic (HFrEF - heart failure with reduced systolic function/EF) ( ) Diastolic (HFpEF - heart failure with preserved systolic function/EF) ( ) Combined Systolic/Diastolic ( ) Other, please specify: ( ) Clinically unable to determine ( ) Past Medical History of Systolic CHF ( ) Past Medical History of Diastolic CHF ( ) Clinically unable to determine COMMENTS: PLEASE ALSO DOCUMENT RESPONSE IN PROGRESS NOTES AND/OR DISCHARGE SUMMARY Use of terms such as suspected, likely, or probable (associated with a specific diagnosis that is being evaluated, monitored, or treated as if it exists) are acceptable and can be restated in the discharge summary if not ruled out. MTDD
[2017-03-19] MEDS: POTASSIUM CHLORIDE 20 MEQ TABLET PO PRN (10:06)
[2017-03-19] MEDS ORDERED: LIDOCAINE 1% 20 ML VIAL ONE (10:26)
[2017-03-19] MEDS ORDERED: HEPARIN/NACL 0.9% 2 UNITS/ML 1,000 ML IV ONE (10:26)
[2017-03-19] MEDS ORDERED: MIDAZOLAM 2 MG/2 ML VIAL ONE ×2 (10:59→11:50)
[2017-03-19] MEDS ORDERED: fentaNYL 100 MCG/2 ML VIAL ONE (11:00)
--- NOTE | 2017-03-19 11:04 | History and Physical Update ---
Sedation H&P Update - History and Physical H&P was reviewed, the patient examined and there: are no changes in the patients condition since last H&P was completed. - Dictation Physical: refer to H&P completed by admitting physician - Physical Exam Mental Status: alert and oriented Heart: regular rate and rhythm Lung: clear to auscultation Abdomen: within normal limits Vitals: within normal limits - Sedation Plan for Sedation: moderate Patient Consent: Procedure disscussed with patient and patinet has consented., Risks and benefits were discussed with patient,including infection,, bleeding, injury to surrounding structures, seizure, temporary nerve, Patient understands and accepts potential risks/benefits and agrees to, proceed. ASA Class: IV Airway Assessment: Class II: Soft palate, uvula, fauces visible
[2017-03-19] MEDS ORDERED: EPTIFIBATIDE 20,000 MCG/10 ML VIAL ONE (11:46)
[2017-03-19] MEDS ORDERED: HEPARIN 5,000 UNIT/1 ML VIAL ONE (11:51)
[2017-03-19] MEDS ORDERED: HEPARIN/NACL 0.9% 2 UNITS/ML 500 ML IV ONE (11:59)
[2017-03-19] MEDS ORDERED: EPTIFIBATIDE 75 MG/100 ML BOTTLE IV ONE (12:00)
[2017-03-19] MEDS: SODIUM CHLORIDE 0.9% 1,000 ML IV SCH (13:50)
[2017-03-19 14:49] LABS: Troponin I Only 0.939 NG/ML (0.00-0.045)
--- NOTE | 2017-03-19 15:03 | EKG Report ---
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
--- NOTE | 2017-03-19 15:36 | Cardiology Operative Report ---
Date of Procedure:: 03/19/17 Pre-op diagnosis: Non-STEMI, coronary artery disease Post-op diagnosis: other (Severe three-vessel coronary artery disease with 1 out of 3 grafts patent, severe residual circumflex and right coronary artery disease) Procedure: Procedures performed: 1. Selective left and right coronary angiography. 2. Left heart catheterization with left ventriculogram. 3. Right iliac angiography to rule out vascular complications. 4. Failed attempt at percutaneous intervention of the distal circumflex artery at the origin of the second marginal branch. 5. Aortogram to evaluate for residual patent saphenous vein graft. 6. Left subclavian angiography to reevaluate subclavian stenosis seen on prior cath film. Impression: 1. Severe [place] three-vessel coronary artery disease with 1 out of 2 grafts patent. A. Diffuse disease throughout the circumflex artery that is predominantly moderate in nature, with a discrete 90% stenosis in the distal segment at the origin of the second marginal artery, with what appears to be an anastomotic stenosis at the site of the saphenous vein graft distal insertion. B. Right coronary artery with diffuse subtotal occlusion, chronic. There is some left to right collateralization. C. Mid LAD with 70-80% stenosis. Patent LEVINE to LAD. D. 100% occluded saphenous vein graft to obtuse marginal artery. 2. Right dominant coronary arteries. 3. Ejection fraction 55 %. 4. Moderate to severe diffuse atherosclerotic vascular disease of the right iliac artery without evidence of vascular complications. 5. Unsuccessful PCI of the circumflex artery as described above. 6. Aortogram reveals diffuse calcification of the aorta without overt aneurysm. No saphenous vein graft conduits were identified. 7. The left subclavian artery has approximately 40% stenosis. There is moderate to severe stenosis of the left vertebral artery origin. Plan: 1. Medical management. Discussion: The patient has had 2 recent hospitalizations with severe GI bleeding requiring blood transfusions. 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 He expresses no intention of alcohol or tobacco cessation, even if he requires dual antiplatelet therapy again. With that background, the goal was to address any severe stenosis with a minimalistic approach as indicated. My initial goal was to attempt simple balloon angioplasty of the most severe stenosis in the circumflex artery, but it was difficult to even advance the wire through the circumflex artery, and even a small 1.5 x 8 mm balloon would not advance through the artery. Addressing the artery in its totality would require extensive PCI with multiple sites of stenting, which given the patient's recent history of massive GI bleeding requiring several units of blood transfusion 2 months ago, did not seem prudent for this patient. We will proceed with medical management. Equipment: Diagnostic 6 [place] JL4, JR4, pigtail catheters Guiding 6 [place] EBU 3.5, 180cm Prowater wire, Guidezilla, apex 2.5 x 12 mm, trek 2.5 x 8 mm and mini trek 1.5 x 8 mm balloons were all "no crosses". Hemodynamics: Aortic pressure 116/45 mmHg, left ventricular pressure 112/3 mmHg, LVEDP 6 mmHg Sedation: Versed 3 mg, fentanyl 100 mcg Procedure: After informed consent was obtained the patient was prepped and draped in sterile fashion. The right groin was infiltrated with 1% lidocaine and the right femoral artery was accessed via modified Seldinger technique using a micropuncture needle and a 6 [place] femoral arterial sheath was placed. All catheter exchanges were performed over a guidewire under fluoroscopic guidance. Diagnostic 6 [place] JL4 and JR4 catheters were advanced to the left and right coronary arteries respectively and multiple cineangiograms were performed in varying degrees of obliquity and angulation. The JR4 catheter was then withdrawn and used to search of the aortic root for the site of a vein graft insertion. There is one area that appeared to have a 100% occluded stump, but this anatomical location seemed more likely to correlate with an RCA graft. The upper port was verified that the patient in fact had an obtuse marginal graft, and further searching was performed without identifying any patent graft origin. The catheter was then withdrawn and advanced into the left subclavian artery, and a guidewire was used to further advance the catheter through the subclavian artery to the origin of the LEVINE. LEVINE graft angiography was performed in varying degrees of obliquity and angulation. The catheter was then withdrawn into the base of the subclavian artery, and subclavian angiography was performed to evaluate for obstructive stenosis prior to the graft origin. Thereafter a pigtail catheter was advanced into the left ventricle where hemodynamics were obtained followed by left ventriculogram. The pigtail catheter was then withdrawn into the aortic root, and aortic angiography was performed in attempts to evaluate for any patent but unidentified saphenous vein grafts. The diagnostic JL4 catheter was then reintroduced to perform follow-up angiography of the left coronary system. Percutaneous intevention of the circumflex artery was then attempted d as described below. At conclusion of the procedure right iliac angiography was performed to rule out vascular complications. Findings: 1. The left main artery has mild atheromatous disease but no significant stenosis. 2. The left anterior descending artery extends to the apex and wraps around. There is mild to moderate atherosclerosis with more severe, 70-80% stenosis in the mid segment. Distal to the graft insertion the vessel was patent. 3. There is not an intermediate ramus branch. 4. The circumflex artery has diffuse moderate to severe atherosclerosis. There is ostial 40-50% stenosis. After the first marginal artery, the vessel has some diffuse 50-60% stenosis in the vessel has perivascular calcification. More distally, at the origin of the second marginal branch, there is what appears to be an aneurysmal segment of the vessel, which is suspected to represent the distal vein graft. The anastomotic site (on the proximal side) appears to have a discrete 90% stenosis. 5. The right coronary artery has diffuse subtotal occlusion. There is some left to right collateralization. It is dominant. 6. Ejection fraction is 55 % with normal anterior, inferior and apical wall motion. 7. No significant mitral regurgitation. 8. No significant aortic stenosis. 9. The aorta is observed to have some diffuse calcific atheromatous disease but no discrete aneurysm, and no patent vein grafts are identified. 10. The left subclavian artery has moderate stenosis with up to 40% stenosis. The origin of the left vertebral artery appears to be moderately to severely diseased. 11. The right iliac artery is angiographically normal without evidence of vascular complications. PCI: The patient was anticoagulated with heparin and Integrilin. After appropriate anticoagulation was confirmed with an ACT measurement, a guiding 6 [place] EBU 3.5 catheter was advanced to the left main artery. A [employer]water 180 cm wire was used to traverse the circumflex artery. Of note, there was some difficulty advancing the wire through the more distal segment of the vessel, which motion was kicking out the guide. Several angiographies were performed to verify that the wire was not subintimal or inappropriately placed. A apex 2.5 x 12 mm over the wire and used to advance the wire slightly. Balloon was advanced the balloon itself would not advance into the mid segment of the vessel. This was removed and a trek 2.5 x 8 mm balloon was advanced over the wire, but also would not pass into the more distal mid segment. A mini trek 1.5 x 8 mm balloon was then advanced over the wire, but also would not pass into the more distal mid segment. A Guidezilla was advanced into the left main artery for additional support, and again, the balloons would not cross into the mid to distal segment of the vessel. Further attempts were aborted. Preoperatively and postoperatively there is 90% stenosis with MATIAS-3 flow. Contrast use: Omnipaque 304 cc Fluoro time: 23.4 minutes Complications: none Specimens removed: none Devices implanted: None Anesthesia: moderate conscious sedation Surgeon / Physician: Tami Lagos Plastics Bench Mechanic: none (Bautista Quesada) Estimated blood loss: minimal Specimens: none sent Condition: stable Disposition: ICU/CCU
[2017-03-20] MEDS: NITROGLYCERIN 2% OINT 1 INCH/GM PACK TOP SCH ×2 (00:43→06:28)
[2017-03-20 05:20] LABS: Basophils % 0.1 % (0.0-0.8); Hematocrit 36.1 VOL% (42.0-52.0); Hemoglobin 12.3 GM/DL (14.0-18.0); Immature Granulocytes % 1.1 %; Immature Granulocytes Absolute 0.27 #; Lymphocytes # 1.2 10*3/uL (1.4-4.0); Lymphocytes % 4.8 % (21.2-54.2); Mean Corpuscular HGB Conc 34.1 GM/DL (32-36); Mean Corpuscular Hemoglobin 28 PG (27-34); Mean Corpuscular Volume 82.6 FL (87-102); Monocytes # 0.9 10*3/uL (0.11-0.8); Monocytes % 3.4 % (1.7-12.7); Neutrophils # 22.6 10*3/uL (1.4-7.4); Neutrophils % 90.6 % (38.7-73.9); Platelet Count 148 T/CUMM (130-400); Red Blood Count 4.37 MC/CUMM (3.8-5.5); White Blood Count 24.9 T/CUMM (4-12)
[2017-03-20 05:40] LABS: Calcium 8.5 MG/DL (8.5-10.1); Magnesium 2.4 MG/DL (1.8-2.4); Potassium 3.8 MMOL/L (3.5-5.1)
[2017-03-20] MEDS: methylPREDNISolone SOD SUC 40 MG/1 ML VIAL IV SCH (06:28)
[2017-03-20 06:41] LABS: Anisocytosis 1+; Band Neutrophils 2 % (0-10); Burr Cells 2+; Lymphocytes 3 % (20-55); Platelet Estimate Adequate; Segmented Neutrophils 93 % (50-85); Total Cells Counted 100
[2017-03-20 06:42] LABS: Macrocytosis 1+; Ovalocytes 1+; Polychromasia Few
--- NOTE | 2017-03-20 07:58 | EKG Report ---
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
--- NOTE | 2017-03-20 08:00 | Cardiology Progress Note ---
Assessment and Plan (1) Non-STEMI (non-ST elevated myocardial infarction) Status: Acute Current Visit: Yes (2) COPD (chronic obstructive pulmonary disease) Status: Chronic Current Visit: Yes (3) Nicotine addiction Status: Chronic Current Visit: Yes (4) Dyslipidemia Status: Chronic Current Visit: Yes (5) History of GI bleed Status: Chronic Current Visit: Yes (6) PAF (paroxysmal atrial fibrillation) Status: Chronic Current Visit: Yes (7) PVD (peripheral vascular disease) Status: Chronic Current Visit: Yes (8) Coronary artery disease Status: Chronic Current Visit: No (9) H/O coronary artery bypass surgery Status: Chronic Current Visit: No (10) Personal history of gastric ulcer Status: Chronic Current Visit: No (11) Alcohol abuse Status: Chronic Current Visit: No (12) COPD (chronic obstructive pulmonary disease) Status: Chronic Current Visit: No (13) Cardiomyopathy, ischemic Status: Chronic Current Visit: No Cardiology - PN: Subj Interval history: GEAR CUTTER: DR. GATICA Summary: History of CAD (S/P CABG November 2014 LEVINE - LAD, SVG - OM), hypertension, dyslipidemia, sedentary lifestyle, PVD, tobaccoism. Ischemic cardiomyopathy, EF 35-40% December 2015. History of anemia related to GI bleed requiring multiple transfusions in December 2016 and in 2015 (may have been on Xarelto during one of the GI bleeding episodes) due to erosive gastritis. Daily alcohol use. History of PAF but unable to take aspirin or formal anticoagulant for stroke prevention. He reports taking Plavix daily. Patient was hospitalized in December 2016 with a hemoglobin of 6, required 4 units packed red blood cells. Refused invasive GI workup. July 2015 EGD revealed a history of Billroth I anastomosis with pyloroplasty, erosions patchy gastritis with polyp. Presented to the ED of [facility] March 18, 2017 with NSTEMI. He reports continued alcohol ingestion with no intention of cessation. He underwent left heart catheterization March 19, 2017 which showed a chronically occluded right coronary artery, patent LEVINE to LAD. There was an occluded saphenous vein graft to the circumflex artery. There is somewhat diffuse disease throughout the circumflex artery with a more severe stenosis at the vein graft anastomosis site. He is status post failed attempt at PCI of this lesion. March 20, 2017: Overall evening was uneventful. He has a chronic left chest "numbness" that has been present ever since his surgery. He is not having the same discomfort that brought him here. No arrhythmias are recorded in the chart. He denies any shortness of breath or pain at the groin site. ASSESSMENT/PLAN: 1. NSTEMI- currently chest pain-free. His coronary disease will be medically managed. 2. CAD S/P CABG - information listed above. Due to history of GI bleeding in the past, he has been off of Aspirin. Yesterday when I inquire he said it continued his Plavix, however today he refuses Plavix saying that it is because GI bleeding in the past. We will have to discontinue it. 3. HYPERTENSION - usually well controlled. Will adjust medications accordingly during hospital stay 4. DYSLIPIDEMIA - continue lipid-lowering agent, LDL 50. 5. ANEMIA WITH HISTORY OF GI BLEED - continue to monitor hemoglobin hematocrit closely. 6. PAF - currently normal sinus rhythm. Continue Amiodarone. I have increased his amiodarone to 200 mg because I believe is an STEMI was triggered by an A. fib RVR episode as he reports heart palpitations and racing with his chest discomfort. Not a candidate for formal anticoagulation due to his history of anemia and GI bleed requiring transfusions. 7. TOBACCO USE -merits and techniques of cessation have been addressed. 8. ALCOHOL USE - patient admits to daily, chronic alcohol use to include up to 4 beers each evening. He has been counseled on the merits of cessation but has no intention of stopping. 9. Leukocytosis-he was started on Solu-Medrol in the emergency room for reasons unbeknownst to me. This will be discontinued. We will transfer him to the telemetry floor today for further monitoring, hopefully will be able to discharge tomorrow. Exam (Progress Note) - Constitutional Vitals: Period Temp Pulse Resp BP Sys/Lubin Pulse Ox Last 24 Hr 96.9 F-98.2 F 51-73 13-22 94-147/46-87 94-100 Exam: General appearance: normal weight, no acute distress - Head Head exam: Present: normal inspection, normocephalic, atraumatic. Absent: hematoma, laceration - Eye Eye exam: Present: EOMI. Absent: conjunctival injection, nystagmus, periorbital swelling, scleral icterus, laceration to eyelids Pupils: Present: PERRL. Absent: constricted, dilated, fixed, irregular, unequal - ENT ENT exam: Present: normal exam, normal external ear exam - Neck Neck exam: Present: normal inspection. Absent: lymphadenopathy, meningismus, tenderness, thyromegaly - Respiratory Respiratory exam: Present: clear to auscultation bilaterally. Absent: accessory muscle use, chest wall tenderness - Cardiovascular Cardiovascular exam: Present: regular rate and rhythm. Absent: carotid bruit, gallop, JVD, rubs - GI/Abdominal GI/Abdominal exam: Present: normal bowel sounds, soft. Absent: distended, firm , guarding, hernia, mass, tenderness, rebound. - Extremities Exam Extremities exam: Present: normal inspection, normal capillary refill. Absent: calf tenderness, edema - Back Exam Back exam: Present: normal inspection. Absent: muscle spasm, vertebral tenderness - Neurological Exam Neurological exam: Present: alert, oriented X3, grossly intact without resting or intention tremor - Psychiatric Psychiatric exam: Present: normal affect, normal mood - Skin Skin exam: Present: normal color, warm, dry, intact. Absent: cyanosis, diaphoretic, rash, urticaria Right groin is without hematoma or bruit, right femoral pulses 2+, dorsalis pedis pulses palpable. Result/EKG - Labs CBC & BMP: 03/20/17 04:34 03/20/17 04:34 Lab Results: I have reviewed the past 24 hour labs Labs: Laboratory Results - last 24 hr 03/19/17 03/19/17 03/19/17 07:53 09:22 13:55 WBC 12.0 RBC 4.51 Hgb 12.6 L Hct 37.2 L MCV 82.5 L MCH 28 MCHC 33.9 Plt Count 151 MPV 9.9 Neut % (Auto) 88.7 H Lymph % (Auto) 9.[address] [place] % (Auto) 1.6 L Eos % (Auto) 0.0 Baso % (Auto) 0.1 Neut # (Auto) 10.6 H Lymph # (Auto) 1.[address] [place] # (Auto) 0.2 Eos # (Auto) 0.0 Baso # (Auto) 0.0 Total Counted Immature Gran % 0.6 Nucleated RBC % 0.0 Immature Gran # 0.07 Segmented Neutrophils Band Neutrophils Lymphocytes Monocytes Nucleated RBCs # 0.00 Platelet Estimate Normal Giant Platelets Few Immature Plt Fraction 0.0 Polychromasia Hypochromasia Slight Anisocytosis Macrocytosis Ovalocytes Slight Ventress Cells Slight Sodium Potassium Chloride Carbon Dioxide Anion Gap BUN Creatinine GFR Calculation BUN/Creatinine Ratio Glucose Calculated Osmolality Calcium Magnesium Total Creatine Kinase 58 CK-MB (CK-2) 2.7 Troponin I 1.010 H 0.939 H 03/19/17 03/20/17 03/20/17 17:03 04:34 04:34 WBC 24.9 H D RBC 4.37 Hgb 12.3 L Hct 36.1 L MCV 82.6 L MCH 28 MCHC 34.1 Plt Count 148 MPV Neut % (Auto) 90.6 H Lymph % (Auto) 4.[address] [place] % (Auto) 3.4 Eos % (Auto) 0.0 Baso % (Auto) 0.1 Neut # (Auto) 22.6 H Lymph # (Auto) 1.[address] [place] # (Auto) 0.9 H Eos # (Auto) 0.0 Baso # (Auto) 0.0 Total Counted 100 Immature Gran % 1.1 Nucleated RBC % 0.0 Immature Gran # 0.27 Segmented Neutrophils 93 H Band Neutrophils 2 Lymphocytes 3 L Monocytes 2 Nucleated RBCs # 0.00 Platelet Estimate Adequate Giant Platelets Immature Plt Fraction 0.0 Polychromasia Few Hypochromasia Anisocytosis 1+ Macrocytosis 1+ Ovalocytes 1+ Ventress Cells 2+ Sodium 136 Potassium 3.8 Chloride 104 Carbon Dioxide 22 Anion Gap 13.8 BUN 11 Creatinine 0.70 GFR Calculation 95 BUN/Creatinine Ratio 15.00 Glucose 126 H Calculated Osmolality 272.0 L Calcium 8.5 Magnesium 2.4 Total Creatine Kinase CK-MB (CK-2) Troponin I 0.806 H - EKG EKG results: interpreted by me, sinus rhythm Specialty Discharge - Follow Up or Referrals
[2017-03-20] MEDS ORDERED: CLOPIDOGREL 75 MG TABLET PO SCH (09:00)
[2017-03-20] MEDS: FOLIC ACID 1 MG TABLET PO SCH ×2 (09:16→20:41)
[2017-03-20] MEDS: METOPROLOL SUCCINATE XL 25 MG TABLET PO SCH (09:16)
[2017-03-20] MEDS: ASPIRIN EC 81 MG TABLET PO SCH (09:16)
[2017-03-20] MEDS: ISOSORBIDE MONONITRATE 30 MG TABLET PO SCH (09:16)
[2017-03-20] MEDS: AMIODARONE 200 MG TABLET PO SCH (09:17)
[2017-03-20] MEDS: FUROSEMIDE 40 MG TABLET PO SCH (09:17)
[2017-03-20] MEDS: SPIRONOLACTONE 25 MG TABLET PO SCH (09:18)
[2017-03-20] MEDS: PANTOPRAZOLE 40 MG TABLET PO SCH (09:23)
[2017-03-20] MEDS: ATORVASTATIN 40 MG TABLET PO SCH (09:23)
[2017-03-21 06:08] LABS: Basophils % 0.2 % (0.0-0.8); Eosinophils % 0.1 % (0.00-10.9); Hematocrit 33.7 VOL% (42.0-52.0); Hemoglobin 11.3 GM/DL (14.0-18.0); Immature Granulocytes % 0.6 %; Immature Granulocytes Absolute 0.12 #; Lymphocytes # 1.4 10*3/uL (1.4-4.0); Mean Corpuscular HGB Conc 33.5 GM/DL (32-36); Mean Corpuscular Hemoglobin 28 PG (27-34); Mean Corpuscular Volume 83.6 FL (87-102); Monocytes # 1.1 10*3/uL (0.11-0.8); Monocytes % 5.4 % (1.7-12.7); Neutrophils # 17.2 10*3/uL (1.4-7.4); Neutrophils % 86.7 % (38.7-73.9); Platelet Count 168 T/CUMM (130-400); Red Blood Count 4.03 MC/CUMM (3.8-5.5); White Blood Count 19.8 T/CUMM (4-12)
[2017-03-21 06:13] LABS: Calcium 8.4 MG/DL (8.5-10.1); Magnesium 2.3 MG/DL (1.8-2.4); Osmolality,Calculated 271.8 MOS/KG (273-304); Potassium 3.5 MMOL/L (3.5-5.1)
[2017-03-21 06:51] LABS: Burr Cells 1+; Microcytosis 2+; Polychromasia Slight; Spherocytes Few
[2017-03-21] MEDS: FUROSEMIDE 40 MG TABLET PO SCH (09:20)
[2017-03-21] MEDS: ATORVASTATIN 40 MG TABLET PO SCH (09:20)
[2017-03-21] MEDS: PANTOPRAZOLE 40 MG TABLET PO SCH (09:20)
[2017-03-21] MEDS: SPIRONOLACTONE 25 MG TABLET PO SCH (09:20)
[2017-03-21] MEDS: AMIODARONE 200 MG TABLET PO SCH (09:20)
[2017-03-21] MEDS: ASPIRIN EC 81 MG TABLET PO SCH (09:20)
[2017-03-21] MEDS: ISOSORBIDE MONONITRATE 30 MG TABLET PO SCH (09:21)
[2017-03-21] MEDS: METOPROLOL SUCCINATE XL 25 MG TABLET PO SCH (09:21)
[2017-03-21] MEDS: FOLIC ACID 1 MG TABLET PO SCH (09:21)
--- NOTE | 2017-03-21 11:37 | Discharge Summary ---
Hospital Course - Hospital Course Hospital Course: JAVASCRIPT DEVELOPER: DR. GATICA Summary: The patient has a history of CAD (S/P CABG November 2014 LEVINE - LAD, SVG - OM), hypertension, dyslipidemia, sedentary lifestyle, PVD, tobaccoism. Ischemic cardiomyopathy, EF 35-40% December 2015. History of anemia related to GI bleed requiring multiple transfusions in December 2016 and in 2015 (may have been on Xarelto during one of the GI bleeding episodes) due to erosive gastritis. Daily alcohol use. History of PAF but unable to take aspirin or formal anticoagulant for stroke prevention. Patient was hospitalized in December 2016 with a hemoglobin of 6, required 4 units packed red blood cells. Refused invasive GI workup. July 2015 EGD revealed a history of Billroth I anastomosis with pyloroplasty, erosions patchy gastritis with polyp. Presented to the ED of [facility] March 18, 2017 with NSTEMI. He had complaints of heart racing, and during his heart racing he was experiencing chest discomfort. He reports continued alcohol ingestion with no intention of cessation. He underwent left heart catheterization March 19, 2017 which showed a chronically occluded right coronary artery, patent LEVINE to LAD. There was an occluded saphenous vein graft to the circumflex artery. There is somewhat diffuse disease throughout the circumflex artery with a more severe stenosis at the vein graft anastomosis site. I attempted PCI with the intent to only balloon this site, however was unable to pass the balloon to the lesion. Accordingly, given his comorbidities and poor candidacy for anticoagulation or dual antiplatelet therapy, he will be managed medically. I increased his amiodarone to 200 mg daily because the symptoms occurred at the times of heart racing and palpitations which likely represented paroxysms of his atrial fibrillation. He did not have any recurrent symptoms while he was in the hospital was eager to be discharged home. He is being discharged home in stable condition and is to follow up with Dr. Gatica in 1-2 weeks. Diagnosis - Discharge Diagnosis (1) Non-STEMI (non-ST elevated myocardial infarction) Status: Acute (2) COPD (chronic obstructive pulmonary disease) Status: Chronic (3) Nicotine addiction Status: Chronic (4) Dyslipidemia Status: Chronic (5) History of GI bleed Status: Chronic (6) PAF (paroxysmal atrial fibrillation) Status: Chronic (7) PVD (peripheral vascular disease) Status: Chronic (8) Coronary artery disease Status: Chronic (9) H/O coronary artery bypass surgery Status: Chronic (10) Personal history of gastric ulcer Status: Chronic (11) Alcohol abuse Status: Chronic (12) COPD (chronic obstructive pulmonary disease) Status: Chronic (13) Cardiomyopathy, ischemic Status: Chronic Specialty Discharge - Follow Up or Referrals Follow up with: Tami Lagos MD [Physician] - (1 to 2 week appt) Discharge Plan - Discharge Data Disposition: Disch To Home/Self Care Condition at Discharge: Stable Discharge Diet: heart healthy Activity: no lifting (For 1 week) Hygiene: may shower Driving: no restrictions - Discharge Medications New Amiodarone Tab [Cordarone Tab] 200 mg PO DAILY #30 tablet Isosorbide Mononitrate [Imdur] 30 mg PO DAILY #30 tablet Continue Folic Acid Tab 0.4 mg PO DAILY tablet Atorvastatin [Lipitor] 40 mg PO DAILY tablet Furosemide Tab [Lasix Tab] 40 mg PO DAILY tablet Metoprolol Succinate Xl [Toprol Xl] 25 mg PO DAILY tablet Spironolactone [Aldactone] 25 mg PO DAILY tablet Niacin 100 mg PO DAILY Pantoprazole Tab [Protonix Tab] 40 mg PO DAILY Discontinued Amiodarone HCl 100 mg PO DAILY - Follow Up or Referral Follow Up: Arturo Gatica MD [Physician] - 1 Week (1-[address] Gatica, not Dr. Lagos ) - Forms/Instructions Instructions: Myocardial Infarction (GEN), Coronary Artery Disease (GEN), How to Stop Smoking (DC), How to Stop Smoking (GEN), Heart Healthy Diet (GEN), Cigarette Smoking and Your Health (GEN) Exam - Constitutional Vitals: Period Temp Pulse Resp BP Sys/Lubin Pulse Ox Last 24 Hr 97.4 F-98.3 F 56-85 16-20 108-135/54-65 90-97 Exam: General appearance: normal weight, no acute distress - Head Head exam: Present: normal inspection, normocephalic, atraumatic. Absent: hematoma, laceration - Eye Eye exam: Present: EOMI. Absent: conjunctival injection, nystagmus, periorbital swelling, scleral icterus, laceration to eyelids Pupils: Present: PERRL. Absent: constricted, dilated, fixed, irregular, unequal - ENT ENT exam: Present: normal exam, normal external ear exam - Neck Neck exam: Present: normal inspection. Absent: lymphadenopathy, meningismus, tenderness, thyromegaly - Respiratory Respiratory exam: Present: clear to auscultation bilaterally. Absent: accessory muscle use, chest wall tenderness - Cardiovascular Cardiovascular exam: Present: regular rate and rhythm. Absent: carotid bruit, gallop, JVD, rubs - GI/Abdominal GI/Abdominal exam: Present: normal bowel sounds, soft. Absent: distended, firm , guarding, hernia, mass, tenderness, rebound. - Extremities Exam Extremities exam: Present: normal inspection, normal capillary refill. Absent: calf tenderness, edema - Back Exam Back exam: Present: normal inspection. Absent: muscle spasm, vertebral tenderness - Neurological Exam Neurological exam: Present: alert, oriented X3, grossly intact without resting or intention tremor - Psychiatric Psychiatric exam: Present: normal affect, normal mood - Skin Skin exam: Present: normal color, warm, dry, intact. Absent: cyanosis, diaphoretic, rash, urticaria Right groin is without hematoma or bruit, right femoral pulses 2+, dorsalis pedis pulses palpable. Discharge Results Procedures and tests throughout hospitalization: Pending Orders 03/19/17 09:57 CL heart Routine 03/22/17 04:00 BMP w/ Mg [Basic Metabolic Panel w/Mg] IN AM CBC [Comp Blood Count Auto Diff] IN AM Labs on day of discharge: Labs from last 24 hours 03/21/17 03/21/17 05:16 05:16 WBC 19.8 H RBC 4.03 Hgb 11.3 L Hct 33.7 L MCV 83.6 L MCH 28 MCHC 33.5 Plt Count 168 Neut % (Auto) 86.7 H Lymph % (Auto) 7.0 L [place] % (Auto) 5.4 Eos % (Auto) 0.1 Baso % (Auto) 0.2 Neut # (Auto) 17.2 H Lymph # (Auto) 1.4 [place] # (Auto) 1.1 H Eos # (Auto) 0.0 Baso # (Auto) 0.0 Immature Gran % 0.6 Nucleated RBC % 0.0 Immature Gran # 0.12 Nucleated RBCs # 0.00 Immature Plt Fraction 9.9 H Polychromasia Slight Microcytosis 2+ Spherocytes Few Avinger Cells 1+ Sodium 137 Potassium 3.5 Chloride 104 Carbon Dioxide 25 Anion Gap 11.5 BUN 10 Creatinine 0.60 L GFR Calculation 101 BUN/Creatinine Ratio 16.00 Glucose 91 Calculated Osmolality 271.8 L Calcium 8.4 L Magnesium 2.3 DS: Provider Date of admission: 03/18/17 20:44 Primary care physician: . No PCP Attending physician on admission: Tami Lagos, Consults: 03/19/17 06:27 Consult to Cardiac Rehabilitation [CONS] Routine Reason for Cardiac Rehabilitation: Risk Factor Modification Discharging clinician: Tami Lagos, Expected date of discharge: 03/21/17
[2017-03-21 11:41] VITALS: BP 103/50
== END 2017-03-21 14:10 | disposition home or self-care (01) | DRG 281 ==
LOC: N.ED 18:56 → N.EDINP 20:44 → N.CC 21:09 → N.TELES 03-20 12:38
PROVIDERS: ADMIT Internal Medicine Cardiovascular Disease; ATTEND Internal Medicine Cardiovascular Disease

== ENCOUNTER 2018-07-17 14:43 | Inpatient (IN) ==
[2018-07-17 15:51] LABS: Basophils # 0.1 10*3/uL (0.0-0.2); Basophils % 0.7 % (0.0-0.8); Eosinophils # 0.1 10*3/uL (0.0-0.87); Eosinophils % 1.3 % (0.00-10.9); Hematocrit 41.6 VOL% (42.0-52.0); Hemoglobin 14.2 GM/DL (14.0-18.0); Immature Granulocytes % 0.3 %; Immature Granulocytes Absolute 0.02 #; Lymphocytes # 1.3 10*3/uL (1.4-4.0); Lymphocytes % 16.7 % (21.2-54.2); Mean Corpuscular HGB Conc 34.1 GM/DL (32-36); Mean Corpuscular Hemoglobin 30 PG (27-34); Mean Platelet Volume 12.8 FL (9.6-12.0); Monocytes # 0.5 10*3/uL (0.11-0.8); Monocytes % 6.1 % (1.7-12.7); Neutrophils # 5.7 10*3/uL (1.4-7.4); Neutrophils % 74.9 % (38.7-73.9); Platelet Count 150 T/CUMM (130-400); Red Blood Count 4.78 MC/CUMM (3.8-5.5); Red Cell Distribution Width 21.3 % (9.3-17.3); White Blood Count 7.5 T/CUMM (4-12)
[2018-07-17 15:53] LABS: Apearance,Urine CLEAR (Clear); Bilirubin,Urine Negative (Negative); Blood, Urine Negative (Negative); Glucose,Urine (UA) Negative (Negative); Hyaline Casts,Urine 4 /LPF (0-3); Ketones,Urine Negative (Negative); Nitrite,Urine Negative (Negative); Protein,Urine Negative; RBC,Urine 2 /HPF (0-4); Urine Color Yellow (Yellow); Urine Specific Gravity 1.005 (1.001-1.035); Urine Urobilinogen < 2.0 EU/DL (0.2-1.0); WBC,Urine 1 /HPF (0-6)
[2018-07-17 16:05] LABS: Barbiturates Screen,Urine Negative (Negative); Benzodiazepines Screen,Urine Negative (Negative); Cannabinoid Screen,Urine Negative (Negative); Opiate Screen,Urine Positive (Negative); Phencyclidine Screen,Urine Negative (Negative)
[2018-07-17 16:08] LABS: Alanine Aminotransferase 16 U/L (16-61); Alkaline Phosphatase 81 U/L (45-117); Aspartate Amino Transferase 16 U/L (0-37); Blood Urea Nitrogen 9 MG/DL (7-18); Calcium 8.5 MG/DL (8.5-10.1); Glucose 91 MG/DL (74-106); Osmolality,Calculated 260.7 MOS/KG (273-304); Potassium 3.2 MMOL/L (3.5-5.1); Sodium 131 MMOL/L (136-145); Total Protein 6.4 G/DL (6.4-8.3)
[2018-07-17] MEDS ORDERED: SODIUM CHLORIDE 0.9% 1,000 ML IV STA (16:12)
[2018-07-17] MEDS ORDERED: POTASSIUM CHLORIDE 20 MEQ TABLET PO STA (16:18)
[2018-07-17] MEDS ORDERED: ONDANSETRON 4 MG/2 ML VIAL IV PRN (16:42)
[2018-07-17 18:02] LABS: Troponin I < 0.015 NG/ML (0.00-0.045)
[2018-07-17] MEDS: SODIUM CHLORIDE 0.9% 1,000 ML IV SCH (18:49)
[2018-07-17] MEDS: ASPIRIN EC 81 MG TABLET PO SCH (21:03)
[2018-07-17] MEDS: DOCUSATE SODIUM 100 MG CAPSULE PO SCH (21:03)
[2018-07-18 00:38] LABS: Troponin I 0.018 NG/ML (0.00-0.045)
[2018-07-18 05:50] LABS: Basophils # 0.1 10*3/uL (0.0-0.2); Basophils % 0.7 % (0.0-0.8); Eosinophils # 0.1 10*3/uL (0.0-0.87); Eosinophils % 1.1 % (0.00-10.9); Hematocrit 41.6 VOL% (42.0-52.0); Hemoglobin 13.9 GM/DL (14.0-18.0); Immature Granulocytes % 0.4 %; Immature Granulocytes Absolute 0.03 #; Lymphocytes # 0.9 10*3/uL (1.4-4.0); Mean Corpuscular HGB Conc 33.4 GM/DL (32-36); Mean Corpuscular Hemoglobin 30 PG (27-34); Mean Corpuscular Volume 88.9 FL (87-102); Mean Platelet Volume 11.2 FL (9.6-12.0); Monocytes # 0.5 10*3/uL (0.11-0.8); Monocytes % 6.1 % (1.7-12.7); Neutrophils % 79.7 % (38.7-73.9); Platelet Count 143 T/CUMM (130-400); Red Blood Count 4.68 MC/CUMM (3.8-5.5); Red Cell Distribution Width 21.5 % (9.3-17.3); White Blood Count 7.5 T/CUMM (4-12)
[2018-07-18 06:11] LABS: Troponin I 0.018 NG/ML (0.00-0.045)
[2018-07-18] MEDS: SODIUM CHLORIDE 0.9% 1,000 ML IV SCH ×4 (06:13→23:15)
[2018-07-18 06:15] LABS: Albumin 2.5 G/DL (3.4-5.0); Bilirubin,Total 1.2 MG/DL (0.2-1.0); Calcium 7.9 MG/DL (8.5-10.1); Potassium 3.5 MMOL/L (3.5-5.1); Risk Ratio 1.56; Thyroid Stimulating Hormone 6.84 uIU/ml (0.358-3.74)
[2018-07-18] MEDS ORDERED: PANTOPRAZOLE 40 MG TABLET PO SCH (09:00)
[2018-07-18] MEDS: FOLIC ACID 0.4 MG TABLET PO SCH (09:08)
[2018-07-18] MEDS: DOCUSATE SODIUM 100 MG CAPSULE PO SCH ×2 (09:08→21:02)
[2018-07-18] MEDS: FUROSEMIDE 40 MG TABLET PO SCH (09:08)
[2018-07-18] MEDS: PANTOPRAZOLE 40 MG TABLET PO SCH (09:08)
[2018-07-18] MEDS: ATORVASTATIN 40 MG TABLET PO SCH (09:08)
[2018-07-18] MEDS: AMIODARONE 200 MG TABLET PO SCH (09:09)
[2018-07-18] MEDS: METOPROLOL SUCCINATE XL 25 MG TABLET PO SCH (09:10)
[2018-07-18] MEDS ORDERED: MAGNESIUM SULF RIDER 2 GM in PREMIX 1 EACH IV ONE (09:41)
[2018-07-18] MEDS: fentaNYL 25 MCG/HR PATCH TRANSDERM SCH (10:29)
[2018-07-18] MEDS: ACETAMINOPHEN 325 MG TABLET PO PRN (21:00)
[2018-07-18] MEDS: ASPIRIN EC 81 MG TABLET PO SCH (21:01)
[2018-07-19] MEDS: ACETAMINOPHEN 325 MG TABLET PO PRN (01:45)
[2018-07-19] MEDS: SODIUM CHLORIDE 0.9% 1,000 ML IV SCH ×3 (03:43→21:12)
[2018-07-19] MEDS: ATORVASTATIN 40 MG TABLET PO SCH (09:19)
[2018-07-19] MEDS: PANTOPRAZOLE 40 MG TABLET PO SCH (09:20)
[2018-07-19] MEDS: METOPROLOL SUCCINATE XL 25 MG TABLET PO SCH (09:20)
[2018-07-19] MEDS: DOCUSATE SODIUM 100 MG CAPSULE PO SCH ×2 (09:20→20:07)
[2018-07-19] MEDS: FUROSEMIDE 40 MG TABLET PO SCH (09:20)
[2018-07-19] MEDS: AMIODARONE 200 MG TABLET PO SCH (09:20)
[2018-07-19] MEDS: FOLIC ACID 0.4 MG TABLET PO SCH (09:20)
[2018-07-19] MEDS: MORPHINE 4 MG/1 ML VIAL IV PRN (18:00)
[2018-07-19] MEDS: ASPIRIN EC 81 MG TABLET PO SCH (20:07)
[2018-07-20 05:47] LABS: INR 1.1; PT Patient Result 12.1 SECS
[2018-07-20] MEDS: SODIUM CHLORIDE 0.9% 1,000 ML IV SCH ×2 (08:02→08:20)
[2018-07-20] MEDS: METOPROLOL SUCCINATE XL 25 MG TABLET PO SCH (08:12)
[2018-07-20] MEDS: FUROSEMIDE 40 MG TABLET PO SCH (08:12)
[2018-07-20] MEDS: AMIODARONE 200 MG TABLET PO SCH (08:12)
[2018-07-20] MEDS: DOCUSATE SODIUM 100 MG CAPSULE PO SCH ×2 (08:13→22:00)
[2018-07-20] MEDS: FOLIC ACID 0.4 MG TABLET PO SCH (08:13)
[2018-07-20] MEDS: PANTOPRAZOLE 40 MG TABLET PO SCH (08:13)
[2018-07-20] MEDS: ATORVASTATIN 40 MG TABLET PO SCH (08:13)
[2018-07-20] MEDS ORDERED: LORazepam 2 MG/1 ML VIAL IV PRN (09:10)
[2018-07-20] MEDS: THIAMINE 100 MG TABLET PO SCH (09:31)
[2018-07-20] MEDS: HEPARIN 5,000 UNIT/1 ML VIAL SUBCUT SCH ×2 (09:40→18:04)
[2018-07-20] MEDS: MULTIVITAMIN (BEROCCA) TABLET PO SCH (09:40)
[2018-07-20] MEDS ORDERED: NALOXONE 0.4 MG/ML VIAL IV ONE (13:12)
[2018-07-20] MEDS ORDERED: FUROSEMIDE 40 MG/4 ML VIAL IV ONE (14:03)
[2018-07-20 14:13] LABS: ABG HCO3 21.1 MMOL/L (20-26); ABG Oxygen Saturation 95.5 % (95-100); ABG PCO2 31.2 MM HG (35-48); ABG PH 7.447 (7.35-7.45); ABG PO2 85.2 MM HG (80-95); Allen Test Positive
[2018-07-20 16:23] LABS: Apearance,Urine CLEAR (Clear); Bacteria,Urine Occasional /HPF (Few); Bilirubin,Urine Negative (Negative); Blood, Urine Negative (Negative); Glucose,Urine (UA) Negative (Negative); Hyaline Casts,Urine 5 /LPF (0-3); Ketones,Urine Negative (Negative); Nitrite,Urine Negative (Negative); Protein,Urine Negative; RBC,Urine 1 /HPF (0-4); Squamous Epithelial Cell,Urine Occasional /HPF (0-10); Urine Color Yellow (Yellow); Urine Specific Gravity 1.006 (1.001-1.035); Urine Urobilinogen < 2.0 EU/DL (0.2-1.0); WBC,Urine <1 /HPF (0-6)
[2018-07-20] MEDS: ASPIRIN EC 81 MG TABLET PO SCH (22:00)
[2018-07-20] MEDS: ACETAMINOPHEN 325 MG TABLET PO PRN (22:00)
[2018-07-21] MEDS: ACETAMINOPHEN 325 MG TABLET PO PRN ×3 (02:55→21:31)
[2018-07-21] MEDS: HEPARIN 5,000 UNIT/1 ML VIAL SUBCUT SCH ×2 (02:56→08:04)
[2018-07-21 05:22] LABS: Basophils % 0.3 % (0.0-0.8); Eosinophils % 0.3 % (0.00-10.9); Hematocrit 34.8 VOL% (42.0-52.0); Immature Granulocytes % 0.7 %; Immature Granulocytes Absolute 0.07 #; Lymphocytes # 1.1 10*3/uL (1.4-4.0); Mean Corpuscular HGB Conc 34.5 GM/DL (32-36); Mean Corpuscular Hemoglobin 30 PG (27-34); Mean Corpuscular Volume 87.7 FL (87-102); Mean Platelet Volume 10.6 FL (9.6-12.0); Monocytes # 0.4 10*3/uL (0.11-0.8); Monocytes % 4.6 % (1.7-12.7); Neutrophils # 7.9 10*3/uL (1.4-7.4); Neutrophils % 83.1 % (38.7-73.9); Red Blood Count 3.97 MC/CUMM (3.8-5.5); Red Cell Distribution Width 21.2 % (9.3-17.3); White Blood Count 9.5 T/CUMM (4-12)
[2018-07-21 05:24] LABS: Albumin 2.2 G/DL (3.4-5.0); Bilirubin,Total 1.4 MG/DL (0.2-1.0); Calcium 7.8 MG/DL (8.5-10.1); Osmolality,Calculated 269.1 MOS/KG (273-304); Platelet Count 104 T/CUMM (130-400); Potassium 2.7 MMOL/L (3.5-5.1); Total Protein 5.5 G/DL (6.4-8.3)
[2018-07-21] MEDS: MULTIVITAMIN (BEROCCA) TABLET PO SCH (08:22)
[2018-07-21] MEDS: FOLIC ACID 0.4 MG TABLET PO SCH (08:22)
[2018-07-21] MEDS: AMIODARONE 200 MG TABLET PO SCH (08:22)
[2018-07-21] MEDS: METOPROLOL SUCCINATE XL 25 MG TABLET PO SCH (08:22)
[2018-07-21] MEDS: FUROSEMIDE 40 MG TABLET PO SCH (08:22)
[2018-07-21] MEDS: ATORVASTATIN 40 MG TABLET PO SCH (08:23)
[2018-07-21] MEDS: PANTOPRAZOLE 40 MG TABLET PO SCH (08:23)
[2018-07-21] MEDS: DOCUSATE SODIUM 100 MG CAPSULE PO SCH ×2 (08:23→21:32)
[2018-07-21] MEDS: THIAMINE 100 MG TABLET PO SCH (08:23)
[2018-07-21] MEDS ORDERED: POTASSIUM CHLORIDE RIDER 10 MEQ in PREMIX 1 EACH IV PRN (12:32)
[2018-07-21] MEDS: POTASSIUM CHLORIDE 20 MEQ TABLET PO PRN ×3 (13:26→18:03)
[2018-07-21] MEDS: ASPIRIN EC 81 MG TABLET PO SCH (21:31)
[2018-07-22 02:11] LABS: Basophils % 0.3 % (0.0-0.8); Eosinophils % 0.4 % (0.00-10.9); Hematocrit 33.8 VOL% (42.0-52.0); Hemoglobin 11.6 GM/DL (14.0-18.0); Immature Granulocytes % 0.7 %; Immature Granulocytes Absolute 0.07 #; Lymphocytes % 9.7 % (21.2-54.2); Mean Corpuscular HGB Conc 34.3 GM/DL (32-36); Mean Corpuscular Hemoglobin 30 PG (27-34); Mean Platelet Volume 10.9 FL (9.6-12.0); Monocytes # 0.5 10*3/uL (0.11-0.8); Monocytes % 4.3 % (1.7-12.7); Neutrophils # 8.9 10*3/uL (1.4-7.4); Neutrophils % 84.6 % (38.7-73.9); Platelet Count 131 T/CUMM (130-400); Red Blood Count 3.84 MC/CUMM (3.8-5.5); Red Cell Distribution Width 21.1 % (9.3-17.3); White Blood Count 10.6 T/CUMM (4-12)
[2018-07-22 02:36] LABS: Calcium 7.8 MG/DL (8.5-10.1); Osmolality,Calculated 269.1 MOS/KG (273-304); Potassium 3.3 MMOL/L (3.5-5.1)
[2018-07-22] MEDS: POTASSIUM CHLORIDE 20 MEQ TABLET PO PRN ×2 (02:38→04:43)
[2018-07-22] MEDS ORDERED: TISSUE ADHESIVE 1 EACH APPLICATOR TOP ONE (08:41)
[2018-07-22] MEDS ORDERED: ROPIVACAINE 0.5% 30 ML VIAL ONE (08:41)
[2018-07-22] MEDS ORDERED: LACTATED RINGERS 1,000 ML IV SCH (09:30)
[2018-07-22] MEDS ORDERED: fentaNYL 100 MCG/2 ML VIAL ONE (10:24)
[2018-07-22] MEDS ORDERED: MIDAZOLAM 2 MG/2 ML VIAL ONE (10:24)
[2018-07-22] MEDS ORDERED: ESMOLOL 100 MG/10 ML VIAL IV ONE (10:25)
[2018-07-22] MEDS ORDERED: KETAMINE 500 MG/10 ML VIAL ONE (10:25)
[2018-07-22] MEDS: AMIODARONE 200 MG TABLET PO SCH (12:27)
[2018-07-22] MEDS: METOPROLOL SUCCINATE XL 25 MG TABLET PO SCH (12:27)
[2018-07-22] MEDS: FOLIC ACID 0.4 MG TABLET PO SCH (12:27)
[2018-07-22] MEDS: DOCUSATE SODIUM 100 MG CAPSULE PO SCH ×2 (12:27→20:07)
[2018-07-22] MEDS: ATORVASTATIN 40 MG TABLET PO SCH (12:27)
[2018-07-22] MEDS: THIAMINE 100 MG TABLET PO SCH (12:28)
[2018-07-22] MEDS: PANTOPRAZOLE 40 MG TABLET PO SCH (12:28)
[2018-07-22] MEDS: MULTIVITAMIN (BEROCCA) TABLET PO SCH (12:28)
[2018-07-22] MEDS: FUROSEMIDE 40 MG/4 ML VIAL IV SCH ×2 (12:29→15:20)
[2018-07-22] MEDS: FUROSEMIDE 40 MG TABLET PO SCH (12:39)
[2018-07-22] MEDS: ASPIRIN EC 81 MG TABLET PO SCH (20:07)
[2018-07-23 06:53] LABS: Basophils % 0.2 % (0.0-0.8); Eosinophils # 0.1 10*3/uL (0.0-0.87); Eosinophils % 1.2 % (0.00-10.9); Hematocrit 36.8 VOL% (42.0-52.0); Hemoglobin 12.4 GM/DL (14.0-18.0); Immature Granulocytes % 0.8 %; Immature Granulocytes Absolute 0.08 #; Lymphocytes # 0.6 10*3/uL (1.4-4.0); Lymphocytes % 6.1 % (21.2-54.2); Mean Corpuscular HGB Conc 33.7 GM/DL (32-36); Mean Corpuscular Hemoglobin 30 PG (27-34); Mean Corpuscular Volume 89.3 FL (87-102); Mean Platelet Volume 10.9 FL (9.6-12.0); Monocytes # 0.4 10*3/uL (0.11-0.8); Monocytes % 4.3 % (1.7-12.7); Neutrophils # 8.6 10*3/uL (1.4-7.4); Neutrophils % 87.4 % (38.7-73.9); Platelet Count 115 T/CUMM (130-400); Red Blood Count 4.12 MC/CUMM (3.8-5.5); White Blood Count 9.8 T/CUMM (4-12)
[2018-07-23 06:59] LABS: Calcium 8.4 MG/DL (8.5-10.1); Potassium 3.3 MMOL/L (3.5-5.1)
[2018-07-23] MEDS: MORPHINE 4 MG/1 ML VIAL IV PRN (08:01)
[2018-07-23] MEDS: FUROSEMIDE 40 MG/4 ML VIAL IV SCH ×2 (10:27→16:09)
[2018-07-23] MEDS: MULTIVITAMIN (BEROCCA) TABLET PO SCH (10:28)
[2018-07-23] MEDS: PANTOPRAZOLE 40 MG TABLET PO SCH (10:28)
[2018-07-23] MEDS: THIAMINE 100 MG TABLET PO SCH (10:28)
[2018-07-23] MEDS: METOPROLOL SUCCINATE XL 25 MG TABLET PO SCH (10:28)
[2018-07-23] MEDS: ATORVASTATIN 40 MG TABLET PO SCH (10:28)
[2018-07-23] MEDS: DOCUSATE SODIUM 100 MG CAPSULE PO SCH ×2 (10:28→21:16)
[2018-07-23] MEDS: FOLIC ACID 0.4 MG TABLET PO SCH (10:28)
[2018-07-23] MEDS: AMIODARONE 200 MG TABLET PO SCH (10:28)
[2018-07-23] MEDS: POTASSIUM CHLORIDE 20 MEQ TABLET PO PRN (16:09)
[2018-07-23] MEDS ORDERED: SODIUM CHLORIDE 0.9% 250 ML IV ONE (18:51)
[2018-07-23] MEDS: ASPIRIN EC 81 MG TABLET PO SCH (21:16)
[2018-07-24] MEDS: MORPHINE 4 MG/1 ML VIAL IV PRN ×2 (02:55→07:55)
[2018-07-24] MEDS: METOPROLOL SUCCINATE XL 25 MG TABLET PO SCH (10:04)
[2018-07-24] MEDS: AMIODARONE 200 MG TABLET PO SCH (10:04)
[2018-07-24] MEDS: ATORVASTATIN 40 MG TABLET PO SCH (10:04)
[2018-07-24] MEDS: FOLIC ACID 0.4 MG TABLET PO SCH (10:04)
[2018-07-24] MEDS: fentaNYL 25 MCG/HR PATCH TRANSDERM SCH (10:05)
[2018-07-24] MEDS: DOCUSATE SODIUM 100 MG CAPSULE PO SCH ×2 (10:05→20:13)
[2018-07-24] MEDS: MULTIVITAMIN (BEROCCA) TABLET PO SCH (10:05)
[2018-07-24] MEDS: PANTOPRAZOLE 40 MG TABLET PO SCH (10:06)
[2018-07-24] MEDS: THIAMINE 100 MG TABLET PO SCH (10:06)
[2018-07-24] MEDS: ACETAMINOPHEN 325 MG TABLET PO PRN (20:13)
[2018-07-24] MEDS: ASPIRIN EC 81 MG TABLET PO SCH (20:13)
[2018-07-25 05:42] LABS: Calcium 7.8 MG/DL (8.5-10.1); Osmolality,Calculated 274.8 MOS/KG (273-304); Potassium 3.3 MMOL/L (3.5-5.1)
[2018-07-25] MEDS: MORPHINE 4 MG/1 ML VIAL IV PRN (07:32)
[2018-07-25] MEDS: POTASSIUM CHLORIDE 20 MEQ TABLET PO PRN ×3 (07:35→11:33)
[2018-07-25] MEDS: THIAMINE 100 MG TABLET PO SCH (09:21)
[2018-07-25] MEDS: AMIODARONE 200 MG TABLET PO SCH (09:22)
[2018-07-25] MEDS: ATORVASTATIN 40 MG TABLET PO SCH (09:22)
[2018-07-25] MEDS: DOCUSATE SODIUM 100 MG CAPSULE PO SCH ×2 (09:22→20:59)
[2018-07-25] MEDS: METOPROLOL SUCCINATE XL 25 MG TABLET PO SCH (09:23)
[2018-07-25] MEDS: FOLIC ACID 0.4 MG TABLET PO SCH (09:23)
[2018-07-25] MEDS: PANTOPRAZOLE 40 MG TABLET PO SCH (09:23)
[2018-07-25] MEDS: MULTIVITAMIN (BEROCCA) TABLET PO SCH (09:24)
[2018-07-25] MEDS: ASPIRIN EC 81 MG TABLET PO SCH (20:59)
[2018-07-26] MEDS: METOPROLOL SUCCINATE XL 25 MG TABLET PO SCH (09:20)
[2018-07-26] MEDS: AMIODARONE 200 MG TABLET PO SCH (09:20)
[2018-07-26] MEDS: MULTIVITAMIN (BEROCCA) TABLET PO SCH (09:21)
[2018-07-26] MEDS: PANTOPRAZOLE 40 MG TABLET PO SCH (09:21)
[2018-07-26] MEDS: THIAMINE 100 MG TABLET PO SCH (09:21)
[2018-07-26] MEDS: ATORVASTATIN 40 MG TABLET PO SCH (09:21)
[2018-07-26] MEDS: DOCUSATE SODIUM 100 MG CAPSULE PO SCH ×2 (09:21→20:00)
[2018-07-26] MEDS: FOLIC ACID 0.4 MG TABLET PO SCH (09:21)
[2018-07-26 09:41] LABS: Basophils # 0.1 10*3/uL (0.0-0.2); Basophils % 0.7 % (0.0-0.8); Eosinophils # 0.2 10*3/uL (0.0-0.87); Eosinophils % 3.1 % (0.00-10.9); Hematocrit 32.6 VOL% (42.0-52.0); Hemoglobin 10.9 GM/DL (14.0-18.0); Immature Granulocytes % 0.6 %; Immature Granulocytes Absolute 0.04 #; Lymphocytes % 13.4 % (21.2-54.2); Mean Corpuscular HGB Conc 33.4 GM/DL (32-36); Mean Corpuscular Hemoglobin 30 PG (27-34); Mean Corpuscular Volume 89.8 FL (87-102); Mean Platelet Volume 10.6 FL (9.6-12.0); Monocytes # 0.5 10*3/uL (0.11-0.8); Monocytes % 6.8 % (1.7-12.7); Neutrophils # 5.4 10*3/uL (1.4-7.4); Neutrophils % 75.4 % (38.7-73.9); Platelet Count 200 T/CUMM (130-400); Red Blood Count 3.63 MC/CUMM (3.8-5.5); White Blood Count 7.2 T/CUMM (4-12)
[2018-07-26] MEDS: ASPIRIN EC 81 MG TABLET PO SCH (19:59)
[2018-07-27 05:38] LABS: Calcium 8.3 MG/DL (8.5-10.1); Potassium 4.3 MMOL/L (3.5-5.1)
[2018-07-27 05:43] LABS: Basophils # 0.1 10*3/uL (0.0-0.2); Basophils % 0.8 % (0.0-0.8); Eosinophils # 0.2 10*3/uL (0.0-0.87); Eosinophils % 3.4 % (0.00-10.9); Hematocrit 35.1 VOL% (42.0-52.0); Hemoglobin 11.9 GM/DL (14.0-18.0); Immature Granulocytes % 0.5 %; Immature Granulocytes Absolute 0.03 #; Lymphocytes # 1.4 10*3/uL (1.4-4.0); Lymphocytes % 23.2 % (21.2-54.2); Mean Corpuscular HGB Conc 33.9 GM/DL (32-36); Mean Corpuscular Hemoglobin 30 PG (27-34); Mean Corpuscular Volume 89.8 FL (87-102); Mean Platelet Volume 10.7 FL (9.6-12.0); Monocytes # 0.5 10*3/uL (0.11-0.8); Monocytes % 8.5 % (1.7-12.7); Neutrophils # 3.9 10*3/uL (1.4-7.4); Neutrophils % 63.6 % (38.7-73.9); Platelet Count 144 T/CUMM (130-400); Red Blood Count 3.91 MC/CUMM (3.8-5.5); Red Cell Distribution Width 19.9 % (9.3-17.3); White Blood Count 6.1 T/CUMM (4-12)
[2018-07-27] MEDS: ATORVASTATIN 40 MG TABLET PO SCH (08:51)
[2018-07-27] MEDS: FOLIC ACID 0.4 MG TABLET PO SCH (08:51)
[2018-07-27] MEDS: FUROSEMIDE 40 MG TABLET PO SCH (08:51)
[2018-07-27] MEDS: METOPROLOL SUCCINATE XL 25 MG TABLET PO SCH (08:52)
[2018-07-27] MEDS: THIAMINE 100 MG TABLET PO SCH (08:52)
[2018-07-27] MEDS: MULTIVITAMIN (BEROCCA) TABLET PO SCH (08:52)
[2018-07-27] MEDS: PANTOPRAZOLE 40 MG TABLET PO SCH (08:53)
[2018-07-27] MEDS: DOCUSATE SODIUM 100 MG CAPSULE PO SCH ×2 (08:54→20:43)
[2018-07-27] MEDS: AMIODARONE 200 MG TABLET PO SCH (08:54)
[2018-07-27] MEDS: fentaNYL 25 MCG/HR PATCH TRANSDERM SCH (11:52)
[2018-07-27] MEDS: ASPIRIN EC 81 MG TABLET PO SCH (20:43)
[2018-07-28 05:46] LABS: Basophils % 0.5 % (0.0-0.8); Eosinophils # 0.2 10*3/uL (0.0-0.87); Eosinophils % 2.4 % (0.00-10.9); Hematocrit 36.1 VOL% (42.0-52.0); Hemoglobin 11.8 GM/DL (14.0-18.0); Immature Granulocytes % 0.3 %; Immature Granulocytes Absolute 0.03 #; Lymphocytes # 1.4 10*3/uL (1.4-4.0); Lymphocytes % 16.5 % (21.2-54.2); Mean Corpuscular HGB Conc 32.7 GM/DL (32-36); Mean Corpuscular Hemoglobin 29 PG (27-34); Mean Platelet Volume 10.6 FL (9.6-12.0); Monocytes # 0.6 10*3/uL (0.11-0.8); Monocytes % 6.9 % (1.7-12.7); Neutrophils # 6.3 10*3/uL (1.4-7.4); Neutrophils % 73.4 % (38.7-73.9); Platelet Count 176 T/CUMM (130-400); Red Blood Count 4.01 MC/CUMM (3.8-5.5); Red Cell Distribution Width 19.9 % (9.3-17.3); White Blood Count 8.6 T/CUMM (4-12)
[2018-07-28 06:13] LABS: Calcium 8.1 MG/DL (8.5-10.1); Osmolality,Calculated 267.2 MOS/KG (273-304); Potassium 4.4 MMOL/L (3.5-5.1)
[2018-07-28] MEDS: THIAMINE 100 MG TABLET PO SCH (08:15)
[2018-07-28] MEDS: METOPROLOL SUCCINATE XL 25 MG TABLET PO SCH (08:15)
[2018-07-28] MEDS: ATORVASTATIN 40 MG TABLET PO SCH (08:15)
[2018-07-28] MEDS: DOCUSATE SODIUM 100 MG CAPSULE PO SCH ×2 (08:15→21:58)
[2018-07-28] MEDS: MULTIVITAMIN (BEROCCA) TABLET PO SCH (08:15)
[2018-07-28] MEDS: AMIODARONE 200 MG TABLET PO SCH (08:15)
[2018-07-28] MEDS: FOLIC ACID 0.4 MG TABLET PO SCH (08:15)
[2018-07-28] MEDS: PANTOPRAZOLE 40 MG TABLET PO SCH (08:16)
[2018-07-28] MEDS: FUROSEMIDE 40 MG TABLET PO SCH (08:20)
[2018-07-28] MEDS ORDERED: ASPIRIN 325 MG TABLET ONE (09:50)
[2018-07-28] MEDS ORDERED: NITROGLYCERIN SL 0.4 MG TABLET SL ONE (09:50)
[2018-07-28] MEDS ORDERED: KETOROLAC 30 MG/1 ML VIAL IV ONE (10:02)
[2018-07-28] MEDS ORDERED: MORPHINE 4 MG/1 ML VIAL IV ONE (10:03)
[2018-07-28] MEDS: ASPIRIN EC 81 MG TABLET PO SCH (21:58)
[2018-07-29] MEDS: FOLIC ACID 0.4 MG TABLET PO SCH (09:42)
[2018-07-29] MEDS: AMIODARONE 200 MG TABLET PO SCH (09:42)
[2018-07-29] MEDS: PANTOPRAZOLE 40 MG TABLET PO SCH (09:42)
[2018-07-29] MEDS: FUROSEMIDE 40 MG TABLET PO SCH (09:42)
[2018-07-29] MEDS: MULTIVITAMIN (BEROCCA) TABLET PO SCH (09:42)
[2018-07-29] MEDS: DOCUSATE SODIUM 100 MG CAPSULE PO SCH (09:43)
[2018-07-29] MEDS: ATORVASTATIN 40 MG TABLET PO SCH (09:43)
[2018-07-29] MEDS: METOPROLOL SUCCINATE XL 25 MG TABLET PO SCH (09:52)
[2018-07-29] MEDS: THIAMINE 100 MG TABLET PO SCH (09:52)
[2018-07-29 12:04] VITALS: BP 105/51
== END 2018-07-29 13:57 | disposition swing bed (61) | DRG 981 ==
LOC: EDUNIT# → EDBD → N.ED 14:43 → N.EDINP 16:42 → SUATTDRO 16:42 → N.TELEN 17:50 → N.3E 07-22 14:35
PROVIDERS: ADMIT Family Medicine; ATTEND Internal Medicine

== ENCOUNTER 2018-09-15 12:43 | Inpatient (IN) ==
[2018-09-15 13:41] LABS: Basophils % 0.1 % (0.0-0.8); Eosinophils % 0.1 % (0.00-10.9); Hematocrit 38.8 VOL% (42.0-52.0); Hemoglobin 13.4 GM/DL (14.0-18.0); Immature Granulocytes % 0.6 %; Immature Granulocytes Absolute 0.09 #; Lymphocytes # 0.7 10*3/uL (1.4-4.0); Lymphocytes % 4.9 % (21.2-54.2); Mean Corpuscular HGB Conc 34.5 GM/DL (32-36); Mean Corpuscular Hemoglobin 32 PG (27-34); Mean Corpuscular Volume 93.7 FL (87-102); Monocytes # 0.9 10*3/uL (0.11-0.8); Monocytes % 5.9 % (1.7-12.7); Neutrophils # 13.4 10*3/uL (1.4-7.4); Neutrophils % 88.4 % (38.7-73.9); Platelet Count 215 T/CUMM (130-400); Red Blood Count 4.14 MC/CUMM (3.8-5.5); Red Cell Distribution Width 16.4 % (9.3-17.3); White Blood Count 15.1 T/CUMM (4-12)
[2018-09-15 14:02] LABS: Albumin 3.3 G/DL (3.4-5.0); Bilirubin,Total 0.8 MG/DL (0.2-1.0); Calcium 8.5 MG/DL (8.5-10.1); Osmolality,Calculated 243.1 MOS/KG (273-304); Potassium 4.2 MMOL/L (3.5-5.1); Total Protein 6.7 G/DL (6.4-8.3)
[2018-09-15 14:06] LABS: Lymphocytes 4 % (20-55); Platelet Estimate Normal; Segmented Neutrophils 93 % (50-85); Total Cells Counted 100
[2018-09-15] MEDS ORDERED: NICOTINE 21 MG/24 HR PATCH TRANSDERM PRN (15:03)
[2018-09-15] MEDS ORDERED: PROMETHAZINE 25 MG TABLET PO PRN (15:03)
[2018-09-15] MEDS ORDERED: guaiFENesin/DM ER 600-30 MG TABLET PO PRN (15:03)
[2018-09-15] MEDS ORDERED: PROMETHAZINE 25 MG/1 ML VIAL IM PRN (15:03)
[2018-09-15] MEDS ORDERED: LORazepam 2 MG/1 ML VIAL IV PRN (15:03)
[2018-09-15] MEDS ORDERED: diphenhydrAMINE CAP 25 MG CAPSULE PO PRN (15:03)
[2018-09-15] MEDS ORDERED: ACETAMINOPHEN 325 MG TABLET PO PRN (15:03)
[2018-09-15] MEDS ORDERED: MORPHINE 4 MG/1 ML VIAL IV PRN (15:03)
[2018-09-15] MEDS ORDERED: ONDANSETRON 4 MG/2 ML VIAL IV PRN (15:03)
[2018-09-15] MEDS ORDERED: THIAMINE INJ 100 MG, FOLIC ACID INJ 1 MG, MULTIVITAMIN INJ 10 ML in SODIUM CHLORIDE 0.9... IV SCH (15:30)
[2018-09-15] MEDS ORDERED: SODIUM CHLORIDE 0.9% 1,000 ML IV SCH (15:30)
[2018-09-15 16:00] LABS: Apearance,Urine Slightly Hazy (Clear); Bacteria,Urine Many /HPF (Few); Bilirubin,Urine Negative (Negative); Blood, Urine Small mg/dL (Negative); Glucose,Urine (UA) Negative (Negative); Ketones,Urine Negative (Negative); Mucus,Urine Occasional /LPF (Occasional); Nitrite,Urine Negative (Negative); Protein,Urine Negative; RBC,Urine 12 /HPF (0-4); Urine Color Yellow (Yellow); Urine Specific Gravity 1.017 (1.001-1.035); Urine Urobilinogen < 2.0 EU/DL (0.2-1.0); WBC,Urine 99 /HPF (0-6)
[2018-09-15] MEDS ORDERED: PNEUMOCOCCAL VACCINE (13 VALENT) 0.5 ML SYRINGE IM ONE (16:53)
[2018-09-15] MEDS: 1: THIAMINE INJ 100 MG, MULTIVITAMIN INJ 10 ML, FOLIC ACID INJ 1 MG in SODIUM CHLORIDE 0 IV SCH (17:02)
[2018-09-15] MEDS: ENOXAPARIN 40 MG/0.4 ML SYRINGE SUBCUT SCH (23:52)
[2018-09-16 05:22] LABS: Calcium 7.7 MG/DL (8.5-10.1); Osmolality,Calculated 259.7 MOS/KG (273-304); Potassium 3.7 MMOL/L (3.5-5.1); Thyroid Stimulating Hormone 5.2 uIU/ml (0.358-3.74)
[2018-09-16] MEDS: LACTULOSE 20 GM/30 ML UDCUP PO PRN (09:01)
[2018-09-16] MEDS: BISACODYL 5 MG TABLET PO PRN (09:01)
[2018-09-16] MEDS: AMIODARONE 200 MG TABLET PO SCH (09:01)
[2018-09-16] MEDS: ATORVASTATIN 40 MG TABLET PO SCH (09:01)
[2018-09-16] MEDS: PANTOPRAZOLE 40 MG TABLET PO SCH (09:01)
[2018-09-16] MEDS: 1: THIAMINE INJ 100 MG, MULTIVITAMIN INJ 10 ML, FOLIC ACID INJ 1 MG in SODIUM CHLORIDE 0 IV SCH (09:02)
[2018-09-16] MEDS: SODIUM CHLORIDE 0.9% 1,000 ML IV SCH (09:33)
[2018-09-16] MEDS: ENOXAPARIN 40 MG/0.4 ML SYRINGE SUBCUT SCH ×2 (21:10→21:12)
[2018-09-17] MEDS: SODIUM CHLORIDE 0.9% 1,000 ML IV SCH (03:05)
[2018-09-17 04:46] LABS: Basophils % 0.2 % (0.0-0.8); Eosinophils % 0.3 % (0.00-10.9); Hematocrit 32.1 VOL% (42.0-52.0); Hemoglobin 10.7 GM/DL (14.0-18.0); Immature Granulocytes % 0.5 %; Immature Granulocytes Absolute 0.05 #; Lymphocytes # 1.2 10*3/uL (1.4-4.0); Lymphocytes % 11.3 % (21.2-54.2); Mean Corpuscular HGB Conc 33.3 GM/DL (32-36); Mean Corpuscular Hemoglobin 32 PG (27-34); Mean Corpuscular Volume 95.3 FL (87-102); Mean Platelet Volume 10.8 FL (9.6-12.0); Monocytes # 0.8 10*3/uL (0.11-0.8); Monocytes % 7.7 % (1.7-12.7); Neutrophils # 8.6 10*3/uL (1.4-7.4); Platelet Count 162 T/CUMM (130-400); Red Blood Count 3.37 MC/CUMM (3.8-5.5); Red Cell Distribution Width 16.9 % (9.3-17.3); White Blood Count 10.7 T/CUMM (4-12)
[2018-09-17 05:01] LABS: Calcium 7.6 MG/DL (8.5-10.1); Osmolality,Calculated 263.4 MOS/KG (273-304); Potassium 3.3 MMOL/L (3.5-5.1)
[2018-09-17] MEDS: LACTULOSE 20 GM/30 ML UDCUP PO PRN ×2 (09:43→22:30)
[2018-09-17] MEDS: ATORVASTATIN 40 MG TABLET PO SCH (09:43)
[2018-09-17] MEDS: BISACODYL 5 MG TABLET PO PRN (09:43)
[2018-09-17] MEDS: AMIODARONE 200 MG TABLET PO SCH (09:43)
[2018-09-17] MEDS: PANTOPRAZOLE 40 MG TABLET PO SCH (09:43)
[2018-09-17] MEDS: AMOXICILLIN 875 MG TABLET PO SCH ×2 (13:37→22:27)
[2018-09-17 18:01] LABS: Osmolality, Urine 435 mOsm/kg (150 - 1150)
[2018-09-17] MEDS: chlordiazePOXIDE 10 MG CAPSULE PO SCH (22:27)
[2018-09-17] MEDS: ENOXAPARIN 40 MG/0.4 ML SYRINGE SUBCUT SCH (22:28)
[2018-09-18 04:29] LABS: Basophils % 0.2 % (0.0-0.8); Eosinophils % 0.1 % (0.00-10.9); Hematocrit 33.3 VOL% (42.0-52.0); Hemoglobin 11.2 GM/DL (14.0-18.0); Immature Granulocytes % 0.4 %; Immature Granulocytes Absolute 0.05 #; Lymphocytes # 0.9 10*3/uL (1.4-4.0); Lymphocytes % 7.4 % (21.2-54.2); Mean Corpuscular HGB Conc 33.6 GM/DL (32-36); Mean Corpuscular Hemoglobin 32 PG (27-34); Mean Corpuscular Volume 94.6 FL (87-102); Mean Platelet Volume 10.7 FL (9.6-12.0); Monocytes # 0.7 10*3/uL (0.11-0.8); Monocytes % 5.5 % (1.7-12.7); Neutrophils % 86.4 % (38.7-73.9); Platelet Count 148 T/CUMM (130-400); Red Blood Count 3.52 MC/CUMM (3.8-5.5); Red Cell Distribution Width 17.2 % (9.3-17.3); White Blood Count 12.7 T/CUMM (4-12)
[2018-09-18 05:07] LABS: Calcium 7.9 MG/DL (8.5-10.1); Osmolality,Calculated 262.4 MOS/KG (273-304); Potassium 3.1 MMOL/L (3.5-5.1)
[2018-09-18] MEDS: LACTULOSE 20 GM/30 ML UDCUP PO PRN (07:59)
[2018-09-18] MEDS: AMOXICILLIN 875 MG TABLET PO SCH ×2 (07:59→21:35)
[2018-09-18] MEDS: chlordiazePOXIDE 10 MG CAPSULE PO SCH ×2 (07:59→21:35)
[2018-09-18] MEDS: AMIODARONE 200 MG TABLET PO SCH (08:00)
[2018-09-18] MEDS: ATORVASTATIN 40 MG TABLET PO SCH (08:01)
[2018-09-18] MEDS: BISACODYL 5 MG TABLET PO PRN (08:01)
[2018-09-18] MEDS: PANTOPRAZOLE 40 MG TABLET PO SCH (08:03)
[2018-09-18] MEDS: LIDOCAINE 5% PATCH TRANSDERM SCH (08:05)
[2018-09-18] MEDS ORDERED: METHYLNALTREXONE 12 MG/0.6 ML VIAL SUBCUT ONE (09:29)
[2018-09-18] MEDS ORDERED: POTASSIUM CHLORIDE RIDER 10 MEQ in PREMIX 1 EACH IV PRN (11:21)
[2018-09-18] MEDS: POTASSIUM CHLORIDE 20 MEQ TABLET PO PRN ×4 (12:13→17:54)
[2018-09-18] MEDS: ENOXAPARIN 40 MG/0.4 ML SYRINGE SUBCUT SCH (21:35)
[2018-09-19 04:35] LABS: Osmolality,Calculated 262.5 MOS/KG (273-304); Potassium 4.3 MMOL/L (3.5-5.1)
[2018-09-19] MEDS: LACTULOSE 20 GM/30 ML UDCUP PO PRN ×2 (04:35→09:13)
[2018-09-19] MEDS: AMIODARONE 200 MG TABLET PO SCH (09:05)
[2018-09-19] MEDS: chlordiazePOXIDE 10 MG CAPSULE PO SCH (09:05)
[2018-09-19] MEDS: AMOXICILLIN 875 MG TABLET PO SCH ×2 (09:05→20:43)
[2018-09-19] MEDS: ATORVASTATIN 40 MG TABLET PO SCH (09:05)
[2018-09-19] MEDS: PANTOPRAZOLE 40 MG TABLET PO SCH (09:05)
[2018-09-19] MEDS: LIDOCAINE 5% PATCH TRANSDERM SCH (09:06)
[2018-09-19] MEDS ORDERED: ceFAZolin 2,000 MG in SODIUM CHLORIDE 0.9% 100 ML IV ONE (13:30)
[2018-09-19] MEDS ORDERED: FUROSEMIDE 40 MG/4 ML VIAL IV ONE (16:26)
[2018-09-20 03:41] LABS: Basophils % 0.2 % (0.0-0.8); Eosinophils % 0.2 % (0.00-10.9); Hematocrit 34.5 VOL% (42.0-52.0); Hemoglobin 11.6 GM/DL (14.0-18.0); Immature Granulocytes % 0.7 %; Immature Granulocytes Absolute 0.09 #; Lymphocytes # 1.1 10*3/uL (1.4-4.0); Lymphocytes % 8.2 % (21.2-54.2); Mean Corpuscular HGB Conc 33.6 GM/DL (32-36); Mean Corpuscular Hemoglobin 32 PG (27-34); Mean Platelet Volume 10.7 FL (9.6-12.0); Monocytes # 0.7 10*3/uL (0.11-0.8); Monocytes % 5.3 % (1.7-12.7); Neutrophils # 11.1 10*3/uL (1.4-7.4); Neutrophils % 85.4 % (38.7-73.9); Platelet Count 155 T/CUMM (130-400); Red Blood Count 3.63 MC/CUMM (3.8-5.5); Red Cell Distribution Width 17.2 % (9.3-17.3)
[2018-09-20 04:09] LABS: Osmolality,Calculated 265.4 MOS/KG (273-304)
[2018-09-20] MEDS: MORPHINE 4 MG/1 ML VIAL IV PRN ×2 (04:16→08:22)
[2018-09-20] MEDS ORDERED: ceFAZolin 2,000 MG in SODIUM CHLORIDE 0.9% 100 ML IV ONE (06:30)
[2018-09-20] MEDS: PANTOPRAZOLE 40 MG TABLET PO SCH (09:14)
[2018-09-20] MEDS: ATORVASTATIN 40 MG TABLET PO SCH (09:14)
[2018-09-20] MEDS: AMIODARONE 200 MG TABLET PO SCH (09:14)
[2018-09-20] MEDS: AMOXICILLIN 875 MG TABLET PO SCH ×2 (09:15→21:14)
[2018-09-20] MEDS: LIDOCAINE 5% PATCH TRANSDERM SCH (09:15)
[2018-09-20] MEDS ORDERED: ROPIVACAINE 0.5% 30 ML VIAL ONE (11:46)
[2018-09-20] MEDS ORDERED: TISSUE ADHESIVE 1 EACH APPLICATOR TOP ONE (11:46)
[2018-09-20] MEDS ORDERED: PROPOFOL 200 MG/20 ML VIAL IV ONE (13:00)
[2018-09-20] MEDS ORDERED: fentaNYL 100 MCG/2 ML VIAL ONE (13:01)
[2018-09-20] MEDS ORDERED: PHENYLEPHRINE 1 MG/10 ML SYRINGE IV ONE (13:01)
[2018-09-20 13:30] LABS: Osmolality, Serum 256 mOsm/kg (275 - 295)
[2018-09-20] MEDS: ENOXAPARIN 40 MG/0.4 ML SYRINGE SUBCUT SCH (21:14)
[2018-09-21 04:52] LABS: Basophils % 0.1 % (0.0-0.8); Hematocrit 29.8 VOL% (42.0-52.0); Immature Granulocytes % 0.6 %; Immature Granulocytes Absolute 0.08 #; Mean Corpuscular HGB Conc 33.6 GM/DL (32-36); Mean Corpuscular Hemoglobin 31 PG (27-34); Mean Corpuscular Volume 93.4 FL (87-102); Mean Platelet Volume 11.2 FL (9.6-12.0); Monocytes % 6.9 % (1.7-12.7); Neutrophils # 11.9 10*3/uL (1.4-7.4); Neutrophils % 85.4 % (38.7-73.9); Platelet Count 163 T/CUMM (130-400); Red Blood Count 3.19 MC/CUMM (3.8-5.5); Red Cell Distribution Width 17.1 % (9.3-17.3)
[2018-09-21 05:11] LABS: Calcium 7.9 MG/DL (8.5-10.1); Osmolality,Calculated 268.2 MOS/KG (273-304); Potassium 3.5 MMOL/L (3.5-5.1)
[2018-09-21] MEDS: LACTULOSE 20 GM/30 ML UDCUP PO PRN (08:51)
[2018-09-21] MEDS: AMIODARONE 200 MG TABLET PO SCH (08:52)
[2018-09-21] MEDS: ATORVASTATIN 40 MG TABLET PO SCH (08:52)
[2018-09-21] MEDS: BISACODYL 5 MG TABLET PO PRN (08:52)
[2018-09-21] MEDS: PANTOPRAZOLE 40 MG TABLET PO SCH (08:52)
[2018-09-21] MEDS: AMOXICILLIN 875 MG TABLET PO SCH (08:52)
[2018-09-21] MEDS: LIDOCAINE 5% PATCH TRANSDERM SCH (09:04)
[2018-09-21] MEDS ORDERED: TUBERCULIN SKIN TEST 0.1 ML SYRINGE INTRADERM ONE (13:19)
[2018-09-21 16:03] VITALS: BP 109/48
== END 2018-09-21 17:08 | disposition swing bed (61) | DRG 516 ==
LOC: N.ED 12:43 → N.EDINP 15:03 → SUATTDRO 15:03 → N.EDINP 16:28 → N.TELES 16:33
PROVIDERS: ADMIT Emergency Medicine; ATTEND Internal Medicine

== ENCOUNTER 2019-01-30 15:36 | Observation (INO) ==
[2019-01-30] MEDS ORDERED: ASPIRIN 325 MG TABLET PO STA (15:46)
[2019-01-30] MEDS ORDERED: PANTOPRAZOLE INJ 80 MG in SODIUM CHLORIDE 0.9% 100 ML IV ONE (15:47)
[2019-01-30] MEDS ORDERED: PANTOPRAZOLE 40 MG VIAL IV ONE (16:01)
[2019-01-30 16:35] LABS: Basophils # 0.1 10*3/uL (0.0-0.2); Basophils % 0.5 % (0.0-0.8); Eosinophils # 0.1 10*3/uL (0.0-0.87); Eosinophils % 0.9 % (0.00-10.9); Hematocrit 32.4 VOL% (42.0-52.0); Hemoglobin 9.7 GM/DL (14.0-18.0); Immature Granulocytes % 0.6 %; Immature Granulocytes Absolute 0.07 #; Lymphocytes # 1.2 10*3/uL (1.4-4.0); Lymphocytes % 10.3 % (21.2-54.2); Mean Corpuscular HGB Conc 29.9 GM/DL (32-36); Mean Corpuscular Volume 85.9 FL (87-102); Mean Platelet Volume 11.7 FL (9.6-12.0); Monocytes % 5.5 % (1.7-12.7); Neutrophils % 82.2 % (38.7-73.9); Platelet Count 206 T/CUMM (130-400); Red Blood Count 3.77 MC/CUMM (3.8-5.5); Red Cell Distribution Width 16.4 % (9.3-17.3); White Blood Count 11.9 T/CUMM (4-12)
[2019-01-30 16:43] LABS: PT Patient Result 11.3 SECS
[2019-01-30 16:53] LABS: Alanine Aminotransferase 26 U/L (16-61); Albumin 2.9 G/DL (3.4-5.0); Alkaline Phosphatase 81 U/L (45-117); Aspartate Amino Transferase 33 U/L (0-37); Bilirubin,Total < 0.39 MG/DL (0.2-1.0); Blood Urea Nitrogen 16 MG/DL (7-18); Calcium 7.5 MG/DL (8.5-10.1); Glucose 90 MG/DL (74-106); Osmolality,Calculated 279.4 MOS/KG (273-304); Total Protein 6.1 G/DL (6.4-8.3)
[2019-01-30] MEDS ORDERED: DILTIAZEM 25 MG/5 ML VIAL IV ONE (17:25)
[2019-01-30] MEDS ORDERED: DILTIAZEM 50 MG/10 ML VIAL IV STA (17:27)
[2019-01-30] MEDS ORDERED: BENZONATATE 100 MG CAPSULE PO PRN (18:14)
[2019-01-30] MEDS ORDERED: LACTULOSE 20 GM/30 ML UDCUP PO PRN (18:14)
[2019-01-30] MEDS ORDERED: ACETAMINOPHEN 325 MG TABLET PO PRN (18:14)
[2019-01-30] MEDS ORDERED: BISACODYL 5 MG TABLET PO PRN (18:14)
[2019-01-30] MEDS ORDERED: BISACODYL 10 MG SUPP RECTAL ONE (18:16)
[2019-01-30] MEDS ORDERED: ALBUTEROL/IPRATROPIUM 3 ML NEB RESP TX PRN (18:29)
[2019-01-30] MEDS ORDERED: ONDANSETRON 4 MG/2 ML VIAL IV PRN (18:30)
[2019-01-30] MEDS ORDERED: ENOXAPARIN 30 MG/0.3 ML SYRINGE SUBCUT SCH (18:30)
[2019-01-30] MEDS ORDERED: dilTIAZem Drip 125 MG/125 ML PREMIX IV ONE (18:40)
[2019-01-30] MEDS ORDERED: dilTIAZem Drip 125 MG/125 ML PREMIX IV SCH (19:30)
[2019-01-30] MEDS: ASPIRIN EC 81 MG TABLET PO SCH (21:40)
[2019-01-30] MEDS: DOCUSATE SODIUM 100 MG/10 ML UDCUP PO SCH (21:40)
[2019-01-30] MEDS: POLYETHYLENE GLYCOL POWDER 17 GM PACK PO SCH ×2 (21:41→21:43)
[2019-01-30] MEDS: SODIUM CHLORIDE 0.9% 1,000 ML IV SCH (21:41)
[2019-01-30] MEDS: ATORVASTATIN 40 MG TABLET PO SCH (21:41)
[2019-01-30 22:53] LABS: Apearance,Urine CLEAR (Clear); Bilirubin,Urine Negative (Negative); Blood, Urine Negative (Negative); Glucose,Urine (UA) Negative (Negative); Ketones,Urine Negative (Negative); Nitrite,Urine Negative (Negative); Protein,Urine Negative; RBC,Urine <1 /HPF (0-4); Squamous Epithelial Cell,Urine Occasional /HPF (0-10); Urine Color Yellow (Yellow); Urine Specific Gravity 1.036 (1.001-1.035); Urine Urobilinogen < 2.0 EU/DL (<2.0); WBC,Urine 5 /HPF (0-6)
[2019-01-31 04:23] LABS: Basophils # 0.1 10*3/uL (0.0-0.2); Basophils % 0.8 % (0.0-0.8); Eosinophils # 0.3 10*3/uL (0.0-0.87); Eosinophils % 4.5 % (0.00-10.9); Hematocrit 31.8 VOL% (42.0-52.0); Hemoglobin 9.4 GM/DL (14.0-18.0); Immature Granulocytes % 0.3 %; Immature Granulocytes Absolute 0.02 #; Lymphocytes # 1.8 10*3/uL (1.4-4.0); Lymphocytes % 25.2 % (21.2-54.2); Mean Corpuscular HGB Conc 29.6 GM/DL (32-36); Mean Corpuscular Volume 84.8 FL (87-102); Mean Platelet Volume 11.7 FL (9.6-12.0); Monocytes % 9.1 % (1.7-12.7); Neutrophils % 60.1 % (38.7-73.9); Platelet Count 177 T/CUMM (130-400); Red Blood Count 3.75 MC/CUMM (3.8-5.5); Red Cell Distribution Width 16.5 % (9.3-17.3); White Blood Count 7.2 T/CUMM (4-12)
[2019-01-31 04:50] LABS: Calcium 8.5 MG/DL (8.5-10.1); Osmolality,Calculated 283.1 MOS/KG (273-304); Risk Ratio 2.09; Thyroid Stimulating Hormone 3.14 uIU/ml (0.358-3.74); VLDL CHOLESTEROL 11.2 MG/DL
[2019-01-31] MEDS: PANTOPRAZOLE 40 MG TABLET PO SCH (06:23)
[2019-01-31] MEDS: LINACLOTIDE 145 MCG CAPSULE PO SCH (06:23)
[2019-01-31] MEDS: DILTIAZEM 30 MG TABLET PO SCH ×5 (07:32→21:04)
[2019-01-31] MEDS ORDERED: AMIODARONE 200 MG TABLET PO SCH (08:00)
[2019-01-31] MEDS: MULTIVITAMIN (CENTRUM) TABLET PO SCH (08:52)
[2019-01-31] MEDS: FOLIC ACID 0.4 MG TABLET PO SCH (08:52)
[2019-01-31] MEDS: DOCUSATE SODIUM 100 MG/10 ML UDCUP PO SCH ×2 (08:52→21:03)
[2019-01-31] MEDS: POLYETHYLENE GLYCOL POWDER 17 GM PACK PO SCH ×2 (08:53→21:04)
[2019-01-31] MEDS: SODIUM PHOSPHATE ENEMA 133 ML BOTTLE RECTAL ONE ×2 (11:56→14:16)
[2019-01-31] MEDS ORDERED: ENOXAPARIN 40 MG/0.4 ML SYRINGE SUBCUT SCH (13:30)
[2019-01-31] MEDS: SODIUM CHLORIDE 0.9% 1,000 ML IV SCH (17:49)
[2019-01-31] MEDS: ASPIRIN EC 81 MG TABLET PO SCH (21:04)
[2019-01-31] MEDS: ATORVASTATIN 40 MG TABLET PO SCH (21:04)
[2019-02-01 05:40] LABS: Basophils # 0.1 10*3/uL (0.0-0.2); Basophils % 0.8 % (0.0-0.8); Eosinophils # 0.4 10*3/uL (0.0-0.87); Eosinophils % 4.2 % (0.00-10.9); Hematocrit 32.1 VOL% (42.0-52.0); Immature Granulocytes % 0.2 %; Immature Granulocytes Absolute 0.02 #; Lymphocytes # 1.8 10*3/uL (1.4-4.0); Lymphocytes % 19.8 % (21.2-54.2); Mean Corpuscular HGB Conc 31.2 GM/DL (32-36); Mean Corpuscular Volume 82.3 FL (87-102); Mean Platelet Volume 11.8 FL (9.6-12.0); Monocytes % 8.3 % (1.7-12.7); Neutrophils % 66.7 % (38.7-73.9); Platelet Count 200 T/CUMM (130-400); Red Cell Distribution Width 16.5 % (9.3-17.3); White Blood Count 8.9 T/CUMM (4-12)
[2019-02-01] MEDS: PANTOPRAZOLE 40 MG TABLET PO SCH (06:15)
[2019-02-01] MEDS: LINACLOTIDE 145 MCG CAPSULE PO SCH (06:16)
[2019-02-01 06:28] LABS: Calcium 8.1 MG/DL (8.5-10.1); Osmolality,Calculated 277.4 MOS/KG (273-304)
[2019-02-01 08:31] VITALS: BP 131/66
[2019-02-01] MEDS: DILTIAZEM 30 MG TABLET PO SCH (09:04)
[2019-02-01] MEDS: FOLIC ACID 0.4 MG TABLET PO SCH (09:04)
[2019-02-01] MEDS: DOCUSATE SODIUM 100 MG/10 ML UDCUP PO SCH (09:04)
[2019-02-01] MEDS: MULTIVITAMIN (CENTRUM) TABLET PO SCH (09:04)
[2019-02-01] MEDS: POLYETHYLENE GLYCOL POWDER 17 GM PACK PO SCH (09:05)
[2019-02-01] MEDS ORDERED: CARVEDILOL 3.125 MG TABLET PO SCH (10:30)
[2019-02-01] MEDS: SODIUM CHLORIDE 0.9% 1,000 ML IV SCH (11:57)
[2019-02-01] MEDS ORDERED: DILTIAZEM CD 120 MG CAPSULE PO SCH (21:00)
== END 2019-02-01 13:15 ==
LOC: EDBD → EDUNIT# → N.ED 15:36 → N.EDINP 15:36 → N.TELES 18:55
PROVIDERS: ADMIT Internal Medicine; ATTEND Internal Medicine

== ENCOUNTER 2019-08-21 14:47 | Inpatient (IN) ==
[2019-08-21] MEDS ORDERED: ONDANSETRON 4 MG/2 ML VIAL IV STA (15:02)
[2019-08-21] MEDS ORDERED: MORPHINE 4 MG/1 ML VIAL IV STA (15:02)
[2019-08-21] MEDS ORDERED: ONDANSETRON 4 MG/2 ML VIAL IV PRN (16:08)
[2019-08-21] MEDS ORDERED: NICOTINE 21 MG/24 HR PATCH TRANSDERM PRN (16:08)
[2019-08-21 16:13] LABS: Calcium 8.6 MG/DL (8.5-10.1); Osmolality,Calculated 264.5 MOS/KG (273-304)
[2019-08-21 16:15] LABS: Basophils # 0.1 10*3/uL (0.0-0.2); Basophils % 0.5 % (0.0-0.8); Eosinophils # 0.4 10*3/uL (0.0-0.87); Eosinophils % 4.6 % (0.00-10.9); Hematocrit 35.6 VOL% (42.0-52.0); Hemoglobin 11.1 GM/DL (14.0-18.0); Immature Granulocytes % 0.2 %; Immature Granulocytes Absolute 0.02 #; Lymphocytes # 2.1 10*3/uL (1.4-4.0); Lymphocytes % 21.9 % (21.2-54.2); Mean Corpuscular HGB Conc 31.2 GM/DL (32-36); Mean Corpuscular Volume 82.8 FL (87-102); Mean Platelet Volume 11.9 FL (9.6-12.0); Monocytes % 8.2 % (1.7-12.7); Neutrophils % 64.6 % (38.7-73.9); Platelet Count 202 T/CUMM (130-400); Red Cell Distribution Width 17.7 % (9.3-17.3); White Blood Count 9.6 T/CUMM (4-12)
[2019-08-21] MEDS ORDERED: ENOXAPARIN 40 MG/0.4 ML SYRINGE SUBCUT SCH (16:30)
[2019-08-21 16:33] LABS: PT Patient Result 10.7 SECS (9.6-12.2); Partial Thromboplastin Time 26.8 SECS (20.8-36.0)
[2019-08-21] MEDS ORDERED: PNEUMOCOCCAL VACCINE (13 VALENT) 0.5 ML SYRINGE IM ONE (19:02)
[2019-08-21] MEDS: MORPHINE 4 MG/1 ML VIAL IV PRN (20:49)
[2019-08-22 05:08] LABS: Basophils % 0.3 % (0.0-0.8); Eosinophils # 0.1 10*3/uL (0.0-0.87); Eosinophils % 0.9 % (0.00-10.9); Hematocrit 33.9 VOL% (42.0-52.0); Hemoglobin 10.7 GM/DL (14.0-18.0); Immature Granulocytes % 0.3 %; Immature Granulocytes Absolute 0.04 #; Lymphocytes # 2.2 10*3/uL (1.4-4.0); Lymphocytes % 18.6 % (21.2-54.2); Mean Corpuscular HGB Conc 31.6 GM/DL (32-36); Mean Corpuscular Volume 81.5 FL (87-102); Mean Platelet Volume 11.6 FL (9.6-12.0); Monocytes % 9.5 % (1.7-12.7); Neutrophils % 70.4 % (38.7-73.9); Platelet Count 153 T/CUMM (130-400); Red Blood Count 4.16 MC/CUMM (3.8-5.5); Red Cell Distribution Width 17.2 % (9.3-17.3); White Blood Count 11.6 T/CUMM (4-12)
[2019-08-22 05:50] LABS: Albumin 3.1 G/DL (3.4-5.0); Bilirubin,Total 0.5 MG/DL (0.2-1.0); Calcium 8.8 MG/DL (8.5-10.1); Osmolality,Calculated 266.4 MOS/KG (273-304); Total Protein 7.2 G/DL (6.4-8.3)
[2019-08-22] MEDS ORDERED: ceFAZolin 1,000 MG in SYRINGE 1 EACH IV ONE (06:00)
[2019-08-22] MEDS ORDERED: BISACODYL 5 MG TABLET PO PRN (06:54)
[2019-08-22] MEDS ORDERED: LACTULOSE 20 GM/30 ML UDCUP PO PRN (06:54)
[2019-08-22] MEDS: DEXTROSE 5% LACTATED RINGERS 1,000 ML IV SCH (07:31)
[2019-08-22] MEDS: MORPHINE 4 MG/1 ML VIAL IV PRN ×3 (08:40→20:43)
[2019-08-22] MEDS: carvediloL 3.125 MG TABLET PO SCH ×2 (08:47→20:43)
[2019-08-22] MEDS ORDERED: BENZONATATE 100 MG CAPSULE PO PRN (09:00)
[2019-08-22] MEDS: FOLIC ACID 0.4 MG TABLET PO SCH (10:01)
[2019-08-22] MEDS: POLYETHYLENE GLYCOL POWDER 17 GM PACK PO SCH ×2 (10:01→20:49)
[2019-08-22] MEDS: DOCUSATE SODIUM 100 MG/10 ML UDCUP PO SCH ×2 (10:01→20:43)
[2019-08-22] MEDS: POLYVINYL ALCOHOL 1.4% OPH SOLN 15 ML BOTTLE BOTH EYES SCH ×4 (10:02→20:43)
[2019-08-22] MEDS: MULTIVITAMIN (CENTRUM) TABLET PO SCH (10:02)
[2019-08-22 11:22] LABS: Troponin I < 0.015 NG/ML (0.00-0.045)
[2019-08-22 13:31] LABS: Troponin I < 0.015 NG/ML (0.00-0.045)
[2019-08-22] MEDS ORDERED: ACETAMINOPHEN 1,000 MG/100 ML VIAL IV ONE (16:55)
[2019-08-22] MEDS ORDERED: BACITRACIN OINT 0.9 GM PACK TOP ONE (17:03)
[2019-08-22] MEDS ORDERED: SEVOFLURANE 1 UNIT/15 MINUTE INH ONE (17:34)
[2019-08-22] MEDS ORDERED: MIDAZOLAM 2 MG/2 ML VIAL ONE (17:34)
[2019-08-22] MEDS ORDERED: propofoL 200 MG/20 ML VIAL IV ONE (17:34)
[2019-08-22] MEDS ORDERED: LIDOCAINE 2% 5 ML VIAL ONE (17:34)
[2019-08-22] MEDS ORDERED: fentaNYL 100 MCG/2 ML VIAL ONE (17:34)
[2019-08-22] MEDS ORDERED: ETOMIDATE 40 MG/20 ML VIAL IV ONE (17:35)
[2019-08-22] MEDS ORDERED: ONDANSETRON 4 MG/2 ML VIAL ONE (17:35)
[2019-08-22] MEDS ORDERED: PHENYLEPHRINE 1 MG/10 ML SYRINGE IV ONE (17:35)
[2019-08-22] MEDS: ATORVASTATIN 40 MG TABLET PO SCH (20:43)
[2019-08-22] MEDS: DILTIAZEM CD 120 MG CAPSULE PO SCH (20:43)
[2019-08-22] MEDS: ceFAZolin 1,000 MG in SYRINGE 1 EACH IV SCH (20:46)
[2019-08-23] MEDS: DEXTROSE 5% LACTATED RINGERS 1,000 ML IV SCH ×3 (02:48→14:30)
[2019-08-23] MEDS: ceFAZolin 1,000 MG in SYRINGE 1 EACH IV SCH (04:45)
[2019-08-23] MEDS: PANTOPRAZOLE 40 MG TABLET PO SCH (06:09)
[2019-08-23] MEDS: LINACLOTIDE 145 MCG CAPSULE PO SCH (06:10)
[2019-08-23 06:32] LABS: Basophils % 0.5 % (0.0-0.8); Eosinophils # 0.1 10*3/uL (0.0-0.87); Eosinophils % 1.5 % (0.00-10.9); Immature Granulocytes % 0.4 %; Immature Granulocytes Absolute 0.03 #; Lymphocytes # 1.6 10*3/uL (1.4-4.0); Lymphocytes % 18.3 % (21.2-54.2); Mean Corpuscular HGB Conc 31.9 GM/DL (32-36); Mean Corpuscular Volume 82.3 FL (87-102); Mean Platelet Volume 10.8 FL (9.6-12.0); Monocytes % 12.6 % (1.7-12.7); Neutrophils % 66.7 % (38.7-73.9); Platelet Count 134 T/CUMM (130-400); Red Cell Distribution Width 17.5 % (9.3-17.3); White Blood Count 8.5 T/CUMM (4-12)
[2019-08-23 06:33] LABS: Hemoglobin 8.6 GM/DL (14.0-18.0); Red Blood Count 3.28 MC/CUMM (3.8-5.5)
[2019-08-23 06:37] LABS: Calcium 7.9 MG/DL (8.5-10.1); Osmolality,Calculated 269.1 MOS/KG (273-304)
[2019-08-23] MEDS ORDERED: METOPROLOL TARTRATE 5 MG/5 ML VIAL IV ONE (07:03)
[2019-08-23] MEDS: dilTIAZem Drip 125 MG/125 ML PREMIX IV SCH (08:56)
[2019-08-23] MEDS: MULTIVITAMIN (CENTRUM) TABLET PO SCH (09:01)
[2019-08-23] MEDS: DOCUSATE SODIUM 100 MG/10 ML UDCUP PO SCH ×2 (09:01→20:08)
[2019-08-23] MEDS: carvediloL 3.125 MG TABLET PO SCH (09:01)
[2019-08-23] MEDS: FOLIC ACID 0.4 MG TABLET PO SCH (09:01)
[2019-08-23] MEDS: POLYETHYLENE GLYCOL POWDER 17 GM PACK PO SCH ×2 (09:02→20:07)
[2019-08-23] MEDS: POLYVINYL ALCOHOL 1.4% OPH SOLN 15 ML BOTTLE BOTH EYES SCH ×4 (09:03→20:16)
[2019-08-23] MEDS: FONDAPARINUX 2.5 MG/0.5 ML SYRINGE SUBCUT SCH (09:36)
[2019-08-23] MEDS ORDERED: MAGNESIUM SULF RIDER 2 GM in PREMIX 1 EACH IV ONE (13:20)
[2019-08-23] MEDS ORDERED: POTASSIUM CHLORIDE 20 MEQ TABLET PO ONE (13:20)
[2019-08-23] MEDS ORDERED: NICOTINE 21 MG/24 HR PATCH TRANSDERM SCH (13:30)
[2019-08-23] MEDS: METOPROLOL TARTRATE 50 MG TABLET PO SCH ×2 (14:22→20:07)
[2019-08-23] MEDS ORDERED: SODIUM CHLORIDE 0.9% 1,000 ML IV PRN (19:38)
[2019-08-23] MEDS: ATORVASTATIN 40 MG TABLET PO SCH (20:06)
[2019-08-23] MEDS: DOCUSATE SODIUM 100 MG CAPSULE PO PRN (20:06)
[2019-08-23] MEDS: DILTIAZEM CD 120 MG CAPSULE PO SCH (20:16)
[2019-08-23 20:45] LABS: Apearance,Urine CLEAR (Clear); Bilirubin,Urine Negative (Negative); Blood, Urine Moderate mg/dL (Negative); Glucose,Urine (UA) Negative (Negative); Ketones,Urine Negative (Negative); Mucus,Urine Occasional /LPF (Occasional); Nitrite,Urine Negative (Negative); Protein,Urine Negative; RBC,Urine 39 /HPF (0-4); Urine Color Yellow (Yellow); Urine Specific Gravity 1.014 (1.001-1.035); Urine Urobilinogen < 2.0 EU/DL (0.2-1.0); WBC,Urine 10 /HPF (0-6)
[2019-08-24] MEDS: dilTIAZem Drip 125 MG/125 ML PREMIX IV SCH ×2 (02:00→09:48)
[2019-08-24 05:39] LABS: Basophils % 0.3 % (0.0-0.8); Eosinophils # 0.1 10*3/uL (0.0-0.87); Hematocrit 31.7 VOL% (42.0-52.0); Hemoglobin 10.2 GM/DL (14.0-18.0); Immature Granulocytes % 0.4 %; Immature Granulocytes Absolute 0.05 #; Lymphocytes # 1.4 10*3/uL (1.4-4.0); Lymphocytes % 12.8 % (21.2-54.2); Mean Corpuscular HGB Conc 32.2 GM/DL (32-36); Mean Corpuscular Volume 82.1 FL (87-102); Mean Platelet Volume 11.7 FL (9.6-12.0); Monocytes % 9.8 % (1.7-12.7); Neutrophils % 75.7 % (38.7-73.9); Platelet Count 150 T/CUMM (130-400); Red Blood Count 3.86 MC/CUMM (3.8-5.5); Red Cell Distribution Width 17.2 % (9.3-17.3); White Blood Count 11.2 T/CUMM (4-12)
[2019-08-24 06:08] LABS: Calcium 7.9 MG/DL (8.5-10.1)
[2019-08-24] MEDS: PANTOPRAZOLE 40 MG TABLET PO SCH (07:47)
[2019-08-24] MEDS: METOPROLOL TARTRATE 50 MG TABLET PO SCH ×2 (08:43→15:06)
[2019-08-24] MEDS: FOLIC ACID 0.4 MG TABLET PO SCH (08:43)
[2019-08-24] MEDS: POLYVINYL ALCOHOL 1.4% OPH SOLN 15 ML BOTTLE BOTH EYES SCH ×4 (08:44→22:20)
[2019-08-24] MEDS: DOCUSATE SODIUM 100 MG/10 ML UDCUP PO SCH ×2 (08:44→22:19)
[2019-08-24] MEDS: MULTIVITAMIN (CENTRUM) TABLET PO SCH (08:44)
[2019-08-24] MEDS: POLYETHYLENE GLYCOL POWDER 17 GM PACK PO SCH ×2 (08:44→22:19)
[2019-08-24] MEDS: DEXTROSE 5% LACTATED RINGERS 1,000 ML IV SCH ×3 (10:45→15:43)
[2019-08-24 10:46] LABS: Hematocrit 32.1 VOL% (42.0-52.0); Hemoglobin 10.3 GM/DL (14.0-18.0)
[2019-08-24] MEDS: LINACLOTIDE 145 MCG CAPSULE PO SCH (10:46)
[2019-08-24] MEDS: FONDAPARINUX 2.5 MG/0.5 ML SYRINGE SUBCUT SCH (12:55)
[2019-08-24] MEDS ORDERED: ASPIRIN EC 81 MG TABLET PO SCH (20:00)
[2019-08-24] MEDS: DILTIAZEM CD 120 MG CAPSULE PO SCH (22:15)
[2019-08-24] MEDS: ATORVASTATIN 40 MG TABLET PO SCH (22:16)
[2019-08-24] MEDS: METOPROLOL SUCCINATE XL 50 MG TABLET PO SCH (22:16)
[2019-08-24] MEDS: DOCUSATE SODIUM 100 MG CAPSULE PO PRN (22:16)
[2019-08-25] MEDS: TAMSULOSIN 0.4 MG CAPSULE PO SCH ×2 (01:18→10:03)
[2019-08-25] MEDS: DEXTROSE 5% LACTATED RINGERS 1,000 ML IV SCH ×2 (02:05→15:58)
[2019-08-25 04:59] LABS: Basophils % 0.4 % (0.0-0.8); Eosinophils # 0.1 10*3/uL (0.0-0.87); Eosinophils % 1.5 % (0.00-10.9); Hematocrit 30.6 VOL% (42.0-52.0); Hemoglobin 9.8 GM/DL (14.0-18.0); Immature Granulocytes % 0.3 %; Immature Granulocytes Absolute 0.03 #; Lymphocytes # 1.8 10*3/uL (1.4-4.0); Lymphocytes % 18.9 % (21.2-54.2); Mean Corpuscular Volume 83.2 FL (87-102); Mean Platelet Volume 11.7 FL (9.6-12.0); Monocytes % 10.3 % (1.7-12.7); Neutrophils % 68.6 % (38.7-73.9); Platelet Count 101 T/CUMM (130-400); Red Blood Count 3.68 MC/CUMM (3.8-5.5); Red Cell Distribution Width 17.1 % (9.3-17.3); White Blood Count 9.6 T/CUMM (4-12)
[2019-08-25 05:45] LABS: Calcium 7.7 MG/DL (8.5-10.1); Osmolality,Calculated 267.2 MOS/KG (273-304)
[2019-08-25] MEDS: LINACLOTIDE 145 MCG CAPSULE PO SCH (05:51)
[2019-08-25] MEDS: PANTOPRAZOLE 40 MG TABLET PO SCH (05:51)
[2019-08-25] MEDS: dilTIAZem Drip 125 MG/125 ML PREMIX IV SCH (08:25)
[2019-08-25] MEDS ORDERED: APIXABAN 2.5 MG TABLET PO SCH (09:00)
[2019-08-25] MEDS: POLYETHYLENE GLYCOL POWDER 17 GM PACK PO SCH (10:01)
[2019-08-25] MEDS: DOCUSATE SODIUM 100 MG/10 ML UDCUP PO SCH (10:02)
[2019-08-25] MEDS: FOLIC ACID 0.4 MG TABLET PO SCH (10:02)
[2019-08-25] MEDS: POLYVINYL ALCOHOL 1.4% OPH SOLN 15 ML BOTTLE BOTH EYES SCH ×2 (10:02→13:50)
[2019-08-25] MEDS: MULTIVITAMIN (CENTRUM) TABLET PO SCH (10:02)
[2019-08-25] MEDS: METOPROLOL SUCCINATE XL 50 MG TABLET PO SCH (10:03)
[2019-08-25] MEDS ORDERED: POTASSIUM CHLORIDE 20 MEQ TABLET PO ONE (10:39)
[2019-08-25 11:43] VITALS: BP 122/61
[2019-08-25] MEDS ORDERED: NICOTINE 21 MG/24 HR PATCH TRANSDERM SCH (15:00)
== END 2019-08-25 15:10 | DRG 481 ==
LOC: N.ED 14:47 → SUATTDRO 16:32 → N.EDINP 16:32 → N.3E 18:49 → N.ICU 08-23 07:29 → N.TELES 08-23 22:52
PROVIDERS: ADMIT Internal Medicine; ATTEND Internal Medicine